=== PATIENT | female | born 1935 ===

== ENCOUNTER 2020-02-17 17:15 | Outpatient (REF) | payer MEDICARE, OTHER, SELFPAY ==
--- NOTE | 2020-02-17 17:25 | MM_ITS ---
EXAMINATION: MM SCREENING DIGITAL BREAST TOMOSYNTHESIS, BILATERAL CLINICAL INFORMATION: Screening. Asymptomatic. The lifetime risk of breast cancer based on the Tyrer-Cuzick Model is under 1%. COMPARISON: Mammography: 09/21/2018, 09/08/2017, 02/21/2017, 08/21/2016 TECHNIQUE: Digital breast tomosynthesis is performed in both the craniocaudal and mediolateral oblique views along with computer-aided detection (CAD). Synthesized 2D images are generated from the tomosynthesis. Additional left MLO view is provided. FINDINGS: There are scattered areas of fibroglandular density (ACR BI-RADS breast composition Category b). Parenchymal pattern is similar to prior studies. There is no interval mass or developing density or architectural abnormality. No abnormal calcifications. The axilla and skin contours are unremarkable. IMPRESSION: No mammographic evidence of malignancy. ASSESSMENT: BI-RADS 1: Negative RECOMMENDATION: Routine annual mammography screening. This patient's information was entered into a reminder system with a target due date for their next mammogram.
== END 2020-02-17 17:16 | disposition home or self-care (01) ==
LOC: HO.MAMMO 17:15
PROVIDERS: PCP Internal Medicine; Visit Provider Internal Medicine Endocrinology, Diabetes & Metabolism
DX: Z12.31 Encounter for screening mammogram for malignant neoplasm of breast (principal)
CPT/HCPCS: 77063; 77067; 78014

== ENCOUNTER 2020-03-23 15:42 | Outpatient (REF) | payer MEDICARE, OTHER, SELFPAY | END 2020-03-23 15:43 | disposition home or self-care (01) | LOC: HO.LAB 15:42 | PROVIDERS: Visit Provider Internal Medicine | DX: Z20.828 Contact with and (suspected) exposure to other viral communicable diseases (principal) | CPT/HCPCS: C9803; U0003 ==

== ENCOUNTER → 2020-04-20 13:28 | Outpatient (BNVA) | payer MEDICARE, OTHER, SELFPAY | PROVIDERS: PCP Internal Medicine; Referring Provider Internal Medicine; Visit Provider Internal Medicine | DX: J30.9 Allergic rhinitis, unspecified (principal); R05 Cough; Z79.82 Long term (current) use of aspirin; Z79.899 Other long term (current) drug therapy | CPT/HCPCS: Q3014 ==

== ENCOUNTER 2020-06-22 11:17 | Outpatient (REF) | payer MEDICARE, OTHER, SELFPAY ==
[2020-06-22 12:50] LABS: Hematocrit 35.9 % (37-47); Hemoglobin 11.8 g/dl (12.0-16.0); Mean Corpuscular HGB Conc 32.9 g/dl (31.0-35.0); Mean Corpuscular Hemoglobin 29.1 pg (27.0-33.0); Mean Corpuscular Volume 88.4 fL (80-98); Mean Platelet Volume 11.3 fL (9.4-12.3); Platelet Count 223 X10*3/uL (160-400); Red Blood Count 4.06 X10*6/uL (4.20-5.50); Red Cell Distribution Width 11.9 % (11.0-16.0); White Blood Count 6.9 X10*3/uL (4.8-10.8)
[2020-06-22 12:57] LABS: Glucose Urine UA NEG (NEG); Leukocyte Esterase Urine 1+ (NEG); Nitrite Urine NEG (NEG); PH 6.5 (5.0-8.0); Urine Blood TRACE (NEG); Urine Ketones NEG (NEG); Urine Protein TRACE MG/DL (NEG-TRACE)
[2020-06-22 13:05] LABS: Color Urine DARK YELLOW
[2020-06-22 13:06] LABS: Appearance Urine HAZY
[2020-06-22 13:18] LABS: Alanine Aminotransferase 16 U/L (0-31); Albumin Level 4.1 g/dL (3.5-5.0); Alkaline Phosphatase 94 U/L (39-117); Anion Gap 12 (12-20); Aspartate Amino Transferase 19 U/L (5-31); Bilirubin Total 0.6 mg/dL (0.0-1.0); Blood Urea Nitrogen 22 mg/dL (9-16); Calcium 9.3 mg/dL (8.4-10.2); Carbon Dioxide 30 mmol/L (22-29); Chloride 94 mmol/L (96-108); Cholesterol 165 mg/dL; Estimated Glomerular Filt Rate 48; Glucose Fasting 96 mg/dL (60-99); HDL Cholesterol 40 mg/dL; LDL Cholesterol Calculated 106 mg/dl; Potassium 5.3 mmol/L (3.3-5.1); Sodium 131 mmol/L (135-145); Total Protein 7.3 g/dL (6.5-8.0); Triglycerides 95 mg/dL
[2020-06-22 13:35] LABS: Bacteria Urine 2+ /LPF; Squamous Epithelial Cell Urine 2+ /LPF
[2020-06-22 13:41] LABS: Thyroid Stimulating Hormone 1.33 uIU/mL (0.32-4.0); Vitamin D 25-OH Total 44.2 ng/mL (>30)
== END 2020-06-22 11:18 | disposition home or self-care (01) ==
LOC: HO.10HDL 11:17
PROVIDERS: Absent Provider Internal Medicine Endocrinology, Diabetes & Metabolism; Visit Provider Radiology Diagnostic Radiology
DX: I10 Essential (primary) hypertension (principal); E78.00 Pure hypercholesterolemia, unspecified; E03.9 Hypothyroidism, unspecified
CPT/HCPCS: 36415; 80053; 80061; 81001; 81003; 82306; 84443; 85027

== ENCOUNTER 2020-11-21 09:12 | Outpatient (REF) | payer MEDICARE, OTHER, SELFPAY ==
--- NOTE | ~2020-11-21 | XR_ITS ---
EXAMINATION: XR SHOULDER, LEFT CLINICAL INFORMATION: Pain. COMPARISON: None TECHNIQUE: AP, scapular Y, and axillary views of the left shoulder. FINDINGS: No acute fracture or dislocation. Small acromioclavicular and glenohumeral marginal osteophytes. No osseous erosion. Small calcification adjacent to the greater tuberosity measuring 0.5 cm and consistent distal supraspinatus calcific tendinitis. Small subacromial spurring. XR/XR shoulder LT min 2V IMPRESSION: 1. Mild acromioclavicular and glenohumeral osteoarthritis. 2. Small subacromial spurs. 3. Mild distal supraspinatus calcific tendinitis.
== END 2020-11-21 09:13 | disposition home or self-care (01) ==
LOC: HO.HOSX 09:12
PROVIDERS: Visit Provider Physician Assistant
DX: S49.92XA Unspecified injury of left shoulder and upper arm, initial encounter (principal)
CPT/HCPCS: 73030; 99202

== ENCOUNTER 2020-12-08 10:49 | Outpatient (REF) | payer MEDICARE, OTHER, SELFPAY ==
[2020-12-08 12:57] LABS: MANUAL DIFF FLAG NO
[2020-12-08 13:03] LABS: Basophils Absolute Auto 0.1 X10*3/uL (0.0-0.2); Eosinophils Absolute Auto 0.4 X10*3/uL (0.0-0.4); Eosinophils Percent Auto 5.3 % (0-4); Hematocrit 38.6 % (37-47); Hemoglobin 12.3 g/dl (12.0-16.0); Imm Gran Abs Auto 0.02 X10*3/uL (0.00-0.03); Imm Gran Pct Auto 0.2 % (0.0-0.4); Lymphocytes Absolute Auto 1.3 X10*3/uL (1.2-4.9); Lymphocytes Percent Auto 16.1 % (20-40); Mean Corpuscular HGB Conc 31.9 g/dl (31.0-35.0); Mean Corpuscular Hemoglobin 28.5 pg (27.0-33.0); Mean Corpuscular Volume 89.4 fL (80-98); Mean Platelet Volume 10.9 fL (9.4-12.3); Monocytes Absolute Auto 0.8 X10*3/uL (0.1-1.2); Monocytes Percent Auto 9.3 % (2-11); Neutrophils Absolute Auto 5.5 X10*3/uL (2.0-8.3); Neutrophils Percent Auto 68.1 % (45-73); Platelet Count 239 X10*3/uL (160-400); Red Blood Count 4.32 X10*6/uL (4.20-5.50); Red Cell Distribution Width 12.4 % (11.0-16.0); White Blood Count 8.1 X10*3/uL (4.8-10.8)
[2020-12-08 13:03] LABS: Glucose Urine UA NEG (NEG); Leukocyte Esterase Urine 1+ (NEG); Nitrite Urine NEG (NEG); Specific Gravity - Urine <= 1.005 (1.005-1.025); Urine Blood NEG (NEG); Urine Ketones NEG (NEG); Urine Protein TRACE MG/DL (NEG-TRACE)
[2020-12-08 13:08] LABS: Appearance Urine CLEAR; Color Urine YELLOW
[2020-12-08 13:20] LABS: Bacteria Urine 2+ /LPF; RBC Urine 0 /HPF (0); Squamous Epithelial Cell Urine 3+ /LPF; WBC Urine 0-2 /HPF (0-4)
[2020-12-08 13:21] LABS: Amorphous Sediment Urine 2+ /LPF
[2020-12-08 13:34] LABS: Alanine Aminotransferase 21 U/L (0-31); Alkaline Phosphatase 86 U/L (39-117); Anion Gap 11 (12-20); Aspartate Amino Transferase 21 U/L (5-31); Bilirubin Total 0.6 mg/dL (0.0-1.0); Blood Urea Nitrogen 19 mg/dL (9-16); Calcium 9.8 mg/dL (8.4-10.2); Carbon Dioxide 31 mmol/L (22-29); Chloride 98 mmol/L (96-108); Cholesterol 157 mg/dL; Estimated Glomerular Filt Rate 44; Glucose Fasting 100 mg/dL (60-99); HDL Cholesterol 42 mg/dL; LDL Cholesterol Calculated 95 mg/dl; Potassium 4.9 mmol/L (3.3-5.1); Sodium 135 mmol/L (135-145); Total Protein 7.4 g/dL (6.5-8.0); Triglycerides 100 mg/dL
[2020-12-08 14:02] LABS: Thyroid Stimulating Hormone 1.18 uIU/mL (0.32-4.0); Vitamin D 25-OH Total 57.2 ng/mL (>30)
== END 2020-12-08 10:50 | disposition home or self-care (01) ==
LOC: HO.WFDLDS 10:49
PROVIDERS: Visit Provider Internal Medicine
DX: I10 Essential (primary) hypertension (principal); E78.00 Pure hypercholesterolemia, unspecified; E55.9 Vitamin D deficiency, unspecified
CPT/HCPCS: 36415; 80053; 80061; 81001; 81003; 82306; 84443; 85025

== ENCOUNTER 2020-12-13 11:50 | Outpatient (REF) | payer MEDICARE, OTHER, SELFPAY ==
[2020-12-13 14:18] LABS: Glucose Urine UA NEG (NEG); Leukocyte Esterase Urine 1+ (NEG); Nitrite Urine NEG (NEG); Urine Blood NEG (NEG); Urine Ketones NEG (NEG); Urine Protein TRACE MG/DL (NEG-TRACE)
[2020-12-13 14:20] LABS: Appearance Urine HAZY; Color Urine YELLOW
[2020-12-13 14:45] LABS: Bacteria Urine 1+ /LPF; RBC Urine 0-2 /HPF (0); Squamous Epithelial Cell Urine 1+ /LPF
== END 2020-12-13 11:51 | disposition home or self-care (01) ==
LOC: HO.10HDL 11:50
PROVIDERS: Visit Provider Nurse Practitioner Family
DX: R35.0 Frequency of micturition (principal)
CPT/HCPCS: 81001; 81003; 87086

== ENCOUNTER 2020-12-25 08:04 | Day surgery (SDC) | payer MEDICARE, OTHER, SELFPAY ==
[2020-12-19 11:36] VITALS: BMI 28.1
--- NOTE | 2020-12-25 07:01 | MHC.SHP ---
Pre-Procedural Eval Section A Date of Service: 12/25/20 Section B Chief Complaint: Right Eye Cataract Allergies: Allergies Allergy/AdvReac Type Severity Reaction Status Date / Time erythromycin base Allergy Intermediate Itching Verified 12/19/20 11:43 [ERYTHROMYCIN BASE] lisinopril Allergy Intermediate throat Verified 12/19/20 11:43 itchy simvastatin [From Zocor] AdvReac Severe Rash Verified 11/21/20 14:47 Plan I have reviewed the history and physical and performed a pertinent physical examination on my patient. No changes have occurred unless specified.
[2020-12-25 10:15] VITALS: BP 148/78; PULSE 74; RESP 20; TEMP 36.9; O2SAT 97
[2020-12-25] MEDS: Tetracaine HCl/PF 0.5% Oph Sol 4 ML DROPS 1 DROP EYE-RIGHT (10:25)
[2020-12-25] MEDS: Lactated Ringers 500 ML 50 ML IVCONT (10:25)
[2020-12-25] MEDS: Tropicamide 1 % Ophth Sol 3 ML BTL 1 DROP EYE-RIGHT ×3 (10:26→10:34)
[2020-12-25] MEDS: Phenylephrine HCL 2.5% Oph SoL 2 ML BOTTLE 1 DROP EYE-RIGHT ×3 (10:28→10:36)
--- NOTE | 2020-12-25 11:04 | HO.PNOPHT ---
Ophthalmology Procedure Procedure Date of Service: 12/25/20 Ophthalmology Viscoelastic: Kamala Saezt Dual Pack Pro Ophthalmology Lenses: TECCAPRI [id number] (21) Procedure Notes: PREOPERATIVE DIAGNOSIS: Decreased visual acuity right eye secondary to cataract POSTOPERATIVE DIAGNOSIS: Same PROCEDURE: Right cataract extraction with intraocular lens insertion SURGEON: Julio Alanis M.D. ANESTHESIA: Topical/MAC ESTIMATED BLOOD LOSS: None COMPLICATIONS: None After obtaining informed consent, the patient was brought to the operating room suite and placed in the supine position. After adequate sedation per anesthesia, topical drops of Tetracaine were given to the right eye. The eye was then prepped and draped in the usual sterile fashion. The operating room microscope was then positioned over the operative eye and a lid speculum placed. A paracentesis was created. Viscoelastic was then instilled into the anterior chamber. A three plane incision was then created temporally, utilizing a 2.85 mm keratome. Capsulotomy forceps were then utilized to create a circular tear capsulotomy. Hydrodissection and hydrodelineation were carried out until adequate mobilization of the nucleus occurred. Phacoemulsification was then utilized to remove the dense central nucleus followed by removal of the cortical material utilizing the automated aspiration irrigation unit. Viscoelastic was instilled into the posterior capsular bag followed by placement of a posterior chamber intraocular lens without difficulty. The residual Viscoelastic was then removed utilizing the automated IA machine. The wound was checked and found to be watertight. The patient tolerated the procedure well and the lid speculum was removed. Intracameral injection of Vigamox 0.1 mL followed by a subtenon injection of Kenalog-40 0.2 mL were administered. The patient will be seen in the a.m.
--- NOTE | 2020-12-25 11:21 | HO.ANESPROP2 ---
HPI - Anesthesia Eval Consult details Narrative: Right eye cataract PMFSH Active Problems Active Problems: All Active Problems (Updated 12/19/20 @ 11:41 by Nicole Wade) Shoulder pain (Acute) Soft tissue injury of left upper arm (Acute) Cough (Acute) Allergic rhinitis (Acute) Past Medical History Medical History Allergic rhinitis Cough COVID-19 vaccine series completed Heartburn HTN (hypertension) Hypothyroid PVD (peripheral vascular disease) Family History Family history of problems with anesthesia: No Surgical History Surgical History H/O colonoscopy Hx of excision of mass Hx of tonsillectomy History of Problems with Anesthesia: No Social History Social History 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 Meds Allergies Allergy/AdvReac Type Severity Reaction Status Date / Time erythromycin base Allergy Intermediate Itching Verified 12/25/20 10:01 [ERYTHROMYCIN BASE] lisinopril Allergy Intermediate throat Verified 12/25/20 10:01 itchy simvastatin [From Zocor] AdvReac Severe Rash Verified 12/25/20 10:01 Active Medications: Current Medications Generic Name Dose Route Start Last Admin Trade Name Freq PRN Reason Stop Dose Admin Lactated Ringer's 1,000 mls @ 50 mls/hr 12/22/20 12:15 Lr IVCONT .Q20H ANKIT Lactated Ringer's 500 mls @ 50 mls/hr 12/25/20 07:45 12/25/20 10:25 Lr IVCONT 50 mls/hr .Q10H ANKIT Administration Povidone Iodine 1 appl 12/25/20 07:01 Povidone Iodine 5 % Ophth Soln 30 Ml Bottle EYE-RIGHT PREOP PRN Pre-Op Surgical Implant Prophy Home Medications Medication Instructions Recorded Confirmed Last Taken Type alprazolam 0.25 mg tablet (Xanax) 0.25 mg PO BEDTIME PRN 04/20/20 12/19/20 Unknown History aspirin 81 mg tablet,delayed 81 mg PO DAILY 04/20/20 12/19/20 12/24/20 11:00 History release (Adult Aspirin Regimen) atorvastatin 40 mg tablet 40 mg PO BEDTIME 04/20/20 12/19/20 Unknown History cholecalciferol (vitamin D3) 50 50 mcg PO DAILY 04/20/20 12/19/20 Unknown History mcg (2,000 unit) capsule cilostazol 50 mg tablet 50 mg PO BID 04/20/20 12/19/20 12/25/20 07:30 History fluticasone propionate 50 1 spray INTRANASAL DAILY 04/20/20 12/19/20 Unknown History mcg/actuation nasal spray,suspension (Flonase Allergy Relief) levothyroxine 50 mcg tablet 50 mcg PO DAILY 04/20/20 12/19/20 12/25/20 07:30 History (Synthroid) loratadine 10 mg capsule 10 mg PO DAILY PRN 04/20/20 12/19/20 Unknown History metoprolol tartrate 50 mg tablet 50 mg PO BID 04/20/20 12/19/20 12/25/20 07:30 History valsartan 160 mg tablet 160 mg PO DAILY 04/20/20 12/19/20 Unknown History Exam Exam Date and Time: December 25, 2020 1121 Height,Weight and Vital Signs: Height 5 ft Weight 65.317 kg Last Vital Signs Temp 98.4 F 12/25/20 10:15 Pulse 74 12/25/20 10:15 Resp 20 12/25/20 10:15 BP 148/78 H 12/25/20 10:15 Pulse Ox 97 12/25/20 10:15 Airway Mallampati Class: II TM Dist: >3cm Neck ROM: Full Denture: Upper and Lower Heart: [id number] Lungs: cta b/l Assessment and Plan Assessment Anesthesia Assessment: Anesthesia Plan Discussed and Chart Reviewed Final Anesthetic Review Family History of Problems with Anesthesia: No History of Problems with Anesthesia: No NPO: Yes ASA Class: III Final Preanesthetic Review: No Changes in Pt Med Stat, Meds/Allgs Chart Reviewed, Consent Obtained/Reviewed and Anes Risks/Benef Reviewed Patient Risk: Intermediate Procedure Risk: Low Assessment/Block/Sedation in SS: Assess/Block/Sedation-SS Anesthetic Plan Anesthetic Plan: MAC: and Agree w/ Assess. and Plan Disposition: Standard PACU
[2020-12-25 11:35] VITALS: BP 161/71; PULSE 70; RESP 18; TEMP 36.3; O2SAT 97
[2020-12-25] MEDS: Acetaminophen 325 MG TABLET 650 MG PO (11:45)
== END 2020-12-25 11:46 | disposition home or self-care (01) ==
PROVIDERS: PCP Internal Medicine; Visit Provider Ophthalmology
PROC: (CPT 66985; principal; 2020-12-25 10:30)
DX: H25.11 Age-related nuclear cataract, right eye (principal); H52.4 Presbyopia; I65.23 Occlusion and stenosis of bilateral carotid arteries; I10 Essential (primary) hypertension; E03.9 Hypothyroidism, unspecified; I73.9 Peripheral vascular disease, unspecified; J41.0 Simple chronic bronchitis; Z79.51 Long term (current) use of inhaled steroids; Z79.899 Other long term (current) drug therapy
CPT/HCPCS: 66984; J2250; J3300; V2632

== ENCOUNTER 2021-01-08 09:03 | Day surgery (SDC) | payer MEDICARE, OTHER, SELFPAY ==
[2020-12-19 11:44] VITALS: BMI 28.1
--- NOTE | 2021-01-01 14:49 | MHC.SHP ---
Pre-Procedural Eval Section A Date of Service: 01/01/21 The patient is an INPATIENT: No The History & Physical has been completed within 30 days and I have reviewed it.: Yes Section B Chief Complaint: Cataract left eye Allergies: Allergies Allergy/AdvReac Type Severity Reaction Status Date / Time erythromycin base Allergy Intermediate Itching Verified 12/25/20 10:01 [ERYTHROMYCIN BASE] lisinopril Allergy Intermediate throat Verified 12/25/20 10:01 itchy simvastatin [From Zocor] AdvReac Severe Rash Verified 12/25/20 10:01 Plan Diagnosis/Plan: Unchanged I have reviewed the history and physical and performed a pertinent physical examination on my patient. No changes have occurred unless specified.
--- NOTE | 2021-01-04 14:41 | HO.ANESPROP2 ---
Documented by User: Mary Rodas NP 01/04/21 14:42 HPI - Anesthesia Eval Consult details Narrative: Left Cataract Extraction IOL Insertion PCP cleared (recent stress and echo wnl) Right eye 12/25/20: Midaz 2 PMFSH Active Problems Active Problems: All Active Problems (Updated 12/19/20 @ 11:41 by Nicole Wade RN) Shoulder pain (Acute) Soft tissue injury of left upper arm (Acute) Cough (Acute) Allergic rhinitis (Acute) Past Medical History Medical History Allergic rhinitis Cough COVID-19 vaccine series completed Heartburn HTN (hypertension) Hypothyroid PVD (peripheral vascular disease) Family History Family history of problems with anesthesia: No Surgical History Surgical History H/O colonoscopy Hx of excision of mass Hx of tonsillectomy History of Problems with Anesthesia: No Social History Social History 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 Meds Allergies Allergy/AdvReac Type Severity Reaction Status Date / Time erythromycin base Allergy Intermediate Itching Verified 12/25/20 10:01 [ERYTHROMYCIN BASE] lisinopril Allergy Intermediate throat Verified 12/25/20 10:01 itchy simvastatin [From Zocor] AdvReac Severe Rash Verified 12/25/20 10:01 Home Medications Medication Instructions Recorded Confirmed Last Taken Type alprazolam 0.25 mg tablet (Xanax) 0.25 mg PO BEDTIME PRN 04/20/20 12/19/20 Unknown History aspirin 81 mg tablet,delayed 81 mg PO DAILY 04/20/20 12/19/20 12/24/20 11:00 History release (Adult Aspirin Regimen) atorvastatin 40 mg tablet 40 mg PO BEDTIME 04/20/20 12/19/20 Unknown History cholecalciferol (vitamin D3) 50 50 mcg PO DAILY 04/20/20 12/19/20 Unknown History mcg (2,000 unit) capsule cilostazol 50 mg tablet 50 mg PO BID 04/20/20 12/19/20 12/25/20 07:30 History fluticasone propionate 50 1 spray INTRANASAL DAILY 04/20/20 12/19/20 Unknown History mcg/actuation nasal spray,suspension (Flonase Allergy Relief) levothyroxine 50 mcg tablet 50 mcg PO DAILY 04/20/20 12/19/20 01/08/21 History (Synthroid) loratadine 10 mg capsule 10 mg PO DAILY PRN 04/20/20 12/19/20 Unknown History metoprolol tartrate 50 mg tablet 50 mg PO BID 04/20/20 12/19/20 01/08/21 History valsartan 160 mg tablet 160 mg PO DAILY 04/20/20 12/19/20 Unknown History Exam Exam Date and Time: January 04, 2021 1441 Height,Weight and Vital Signs: Height 5 ft Weight 65.317 kg Assessment and Plan Assessment Anesthesia Assessment: Chart Reviewed Final Anesthetic Review Family History of Problems with Anesthesia: No History of Problems with Anesthesia: No Documented by User: Caro King MD 01/08/21 10:35 [facility] Past Medical History Medical History Allergic rhinitis Cough COVID-19 vaccine series completed Heartburn HTN (hypertension) Hypothyroid PVD (peripheral vascular disease) Surgical History Surgical History H/O colonoscopy Hx of excision of mass Hx of tonsillectomy Social History Social History 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 Meds Allergies Allergy/AdvReac Type Severity Reaction Status Date / Time erythromycin base Allergy Intermediate Itching Verified 12/25/20 10:01 [ERYTHROMYCIN BASE] lisinopril Allergy Intermediate throat Verified 12/25/20 10:01 itchy simvastatin [From Zocor] AdvReac Severe Rash Verified 12/25/20 10:01 Home Medications Medication Instructions Recorded Confirmed Last Taken Type alprazolam 0.25 mg tablet (Xanax) 0.25 mg PO BEDTIME PRN 04/20/20 12/19/20 Unknown History aspirin 81 mg tablet,delayed 81 mg PO DAILY 04/20/20 12/19/20 12/24/20 11:00 History release (Adult Aspirin Regimen) atorvastatin 40 mg tablet 40 mg PO BEDTIME 04/20/20 12/19/20 Unknown History cholecalciferol (vitamin D3) 50 50 mcg PO DAILY 04/20/20 12/19/20 Unknown History mcg (2,000 unit) capsule cilostazol 50 mg tablet 50 mg PO BID 04/20/20 12/19/20 12/25/20 07:30 History fluticasone propionate 50 1 spray INTRANASAL DAILY 04/20/20 12/19/20 Unknown History mcg/actuation nasal spray,suspension (Flonase Allergy Relief) levothyroxine 50 mcg tablet 50 mcg PO DAILY 04/20/20 12/19/20 01/08/21 History (Synthroid) loratadine 10 mg capsule 10 mg PO DAILY PRN 04/20/20 12/19/20 Unknown History metoprolol tartrate 50 mg tablet 50 mg PO BID 04/20/20 12/19/20 01/08/21 History valsartan 160 mg tablet 160 mg PO DAILY 04/20/20 12/19/20 Unknown History Exam Airway Mallampati Class: II (Edentulous) TM Dist: >3cm Neck ROM: Full Denture: Upper and Lower Loose/Missing/Broken Teeth: Yes, Upper and Lower Heart: RRR Lungs: CTA Assessment and Plan Assessment Anesthesia Assessment: Anesthesia Plan Discussed Final Anesthetic Review NPO: Yes ASA Class: II Final Preanesthetic Review: Meds/Allgs Chart Reviewed, Consent Obtained/Reviewed and Anes Risks/Benef Reviewed Patient Risk: Low Procedure Risk: Low Anesthetic Plan Anesthetic Plan: MAC: Disposition: Standard PACU
[2021-01-08] MEDS: Lactated Ringers 500 ML 50 ML IV (10:15)
[2021-01-08] MEDS: Tropicamide 1 % Ophth Sol 3 ML BTL 1 DROP EYE-LEFT ×3 (10:15→10:18)
[2021-01-08] MEDS: Phenylephrine HCL 2.5% Oph SoL 2 ML BOTTLE 1 DROP EYE-LEFT ×3 (10:16→10:19)
--- NOTE | 2021-01-08 10:50 | PC.NURSE ---
PT STS SHES NO DNR
--- NOTE | 2021-01-08 11:28 | HO.PNOPHT ---
Ophthalmology Procedure Procedure Date of Service: 01/08/21 Ophthalmology Viscoelastic: Healon Duet Dual Pack Pro Ophthalmology Lenses: TECNIS [id number] (21.5) Procedure Notes: PREOPERATIVE DIAGNOSIS: Decreased visual acuity left eye secondary to cataract POSTOPERATIVE DIAGNOSIS: Same PROCEDURE: Left cataract extraction with intraocular lens insertion SURGEON: Julio Alanis M.D. ANESTHESIA: Topical/MAC ESTIMATED BLOOD LOSS: None COMPLICATIONS: None After obtaining informed consent, the patient was brought to the operation room suite and placed in the supine position. After adequate sedation per anesthesia, topical drops of Tetracaine were given to the left eye. The eye was then prepped and draped in the usual sterile fashion. The operating room microscope was then positioned over the operative eye and a lid speculum placed. A paracentesis was created. Viscoelastic was then instilled into the anterior chamber. A three plane incision was then created temporally, utilizing a 2.85 mm keratome. Capsulotomy forceps were then utilized to create a circular tear capsulotomy. Hydrodissection and hydrodelineation were carried out until adequate mobilization of the nucleus occurred. Phacoemulsification was then utilized to remove the dense central nucleus followed by removal of the cortical material utilizing the automated aspiration irrigation unit. Viscoat elastic was instilled into the posterior capsular bag followed by placement of a posterior chamber intraocular lens without difficulty. The residual Viscoat elastic was then removed utilizing the automated IA machine. The wound was check and found to be watertight. The patient tolerated the procedure well and the lid speculum was removed. Intracameral injection of Vigamox 0.1 mL followed by a subtenon injection of Kenalog-40 0.2 mL were administered. The patient will be seen in the a.m.
[2021-01-08 11:49] VITALS: BP 125/54; PULSE 69; RESP 18; TEMP 36.2; O2SAT 100
== END 2021-01-08 12:06 | disposition home or self-care (01) ==
PROVIDERS: PCP Internal Medicine; Visit Provider Ophthalmology
PROC: (CPT 66985; principal; 2021-01-08 11:50)
DX: H25.12 Age-related nuclear cataract, left eye (principal); H52.4 Presbyopia; I10 Essential (primary) hypertension; J43.9 Emphysema, unspecified; E03.9 Hypothyroidism, unspecified; Z79.51 Long term (current) use of inhaled steroids; Z79.899 Other long term (current) drug therapy; Z88.8 Allergy status to other drugs, medicaments and biological substances; Z66 Do not resuscitate
CPT/HCPCS: 66984; J2250; J3010; J3300; V2632

== ENCOUNTER 2021-03-02 13:07 | Outpatient (REF) | payer MEDICARE, OTHER, SELFPAY ==
--- NOTE | ~2021-03-02 | MM_ITS ---
EXAMINATION: MM SCREENING DIGITAL BREAST TOMOSYNTHESIS, BILATERAL CLINICAL INFORMATION: Screening. Asymptomatic. COMPARISON: Mammography: 02/17/2020, 09/21/2018, 09/08/2017 TECHNIQUE: Digital breast tomosynthesis is performed in both the craniocaudal and mediolateral oblique views along with computer-aided detection (CAD). Synthesized 2D images are generated from the tomosynthesis. FINDINGS: There are scattered areas of fibroglandular density (ACR BI-RADS breast composition Category b). There are no significant masses, abnormal calcifications, or other abnormalities. Parenchymal pattern is similar to prior exams. The axilla and skin contours are unremarkable. MM/MM tomosynthesis screening BI IMPRESSION: No mammographic evidence of malignancy. ASSESSMENT: BI-RADS 1: Negative RECOMMENDATION: Routine annual mammography screening. This patient's information was entered into a reminder system with a target due date for their next mammogram.
== END 2021-03-02 13:08 | disposition home or self-care (01) ==
LOC: HO.MAMMO 13:07
PROVIDERS: Visit Provider Internal Medicine
DX: Z12.31 Encounter for screening mammogram for malignant neoplasm of breast (principal)
CPT/HCPCS: 77063; 77067

== ENCOUNTER 2021-04-23 13:09 | Outpatient (REF) | payer MEDICARE, OTHER, SELFPAY ==
--- NOTE | ~2021-04-23 | XR_ITS ---
EXAMINATION: XR CHEST CLINICAL INFORMATION: Cough. COMPARISON: None TECHNIQUE: 2 views of the chest were obtained. FINDINGS: The cardiomediastinal silhouette is normal. No abnormal tracheal deviation. Prominence of soft tissue in the bilateral paratracheal region is related to enlarged thyroid gland seen on the ultrasound of 12/20/2016. The lungs are mildly hyperinflated. Suggestion of bilateral bronchial thickening and likely patchy hazy opacities in the right lower lung zone medially. No evidence of pleural effusions, pulmonary edema or pneumothorax. Osteopenia. Mild degenerative changes in the spine. XR/XR chest 2V IMPRESSION: Bronchial thickening with suspected airspace opacities in the right lower lung zone medially. There are no pertinent prior studies for comparison. Recommend clinical followup as appropriate and followup chest x-rays in 6-8 weeks.
== END 2021-04-23 13:10 | disposition home or self-care (01) ==
LOC: HO.XRAY 13:09
PROVIDERS: PCP Internal Medicine; Visit Provider Internal Medicine
DX: R05.9 Cough, unspecified (principal); J30.9 Allergic rhinitis, unspecified
CPT/HCPCS: 71046; 99212

== ENCOUNTER 2021-07-16 17:05 | Outpatient (REF) | payer MEDICARE, OTHER, SELFPAY ==
--- NOTE | ~2021-07-16 | XR_ITS ---
EXAMINATION: XR CHEST CLINICAL INFORMATION: Pneumonia COMPARISON: Previous chest x-ray most recent April 2021 TECHNIQUE: 2 views of the chest were obtained. FINDINGS: The cardiac silhouette does not appear enlarged. There is increased soft tissue in the superior mediastinum. This is similar to previous chest x-ray. This may be related to the patient's known enlarged thyroid gland. There are increased central hilar lung markings. Differential would include bronchitis/airways disease, pulmonary venous redistribution and atypical interstitial pneumonia. Correlation is recommended. There are symmetric nodular densities at both lung bases probably representing nipple shadows. This is similar to April 2021 exam. The lungs are otherwise clear. There is no pleural effusion or pneumothorax. There are degenerative changes of the spine. 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 Increased central hilar lung markings similar to previous exam. Differential would include bronchitis/airways disease, pulmonary venous redistribution/mild pulmonary edema and atypical interstitial pneumonia.
== END 2021-07-16 17:06 | disposition home or self-care (01) ==
LOC: HO.XRAY 17:05
PROVIDERS: PCP Internal Medicine; Visit Provider Internal Medicine
DX: J18.8 Other pneumonia, unspecified organism (principal)
CPT/HCPCS: 71046

== ENCOUNTER 2021-08-06 12:00 | Outpatient (REF) | payer MEDICARE, OTHER, SELFPAY ==
[2021-08-06 13:18] LABS: Anion Gap 11 (12-20); Blood Urea Nitrogen 16 mg/dL (9-16); Calcium 9.4 mg/dL (8.4-10.2); Carbon Dioxide 29 mmol/L (22-29); Chloride 96 mmol/L (96-108); Estimated Glomerular Filt Rate 55; Glucose Random 134 mg/dL (60-115); Potassium 4.3 mmol/L (3.3-5.1); Sodium 132 mmol/L (135-145)
== END 2021-08-06 12:01 | disposition home or self-care (01) ==
LOC: HO.10HDL 12:00
PROVIDERS: Visit Provider Internal Medicine
DX: R79.89 Other specified abnormal findings of blood chemistry (principal)
CPT/HCPCS: 36415; 80048

== ENCOUNTER 2021-09-18 16:19 | Outpatient (REF) | payer MEDICARE, OTHER, SELFPAY ==
--- NOTE | ~2021-09-18 | XR_ITS ---
EXAMINATION: XR CHEST CLINICAL INFORMATION: Pneumonia. COMPARISON: 07/16/2021 and 04/23/2021. TECHNIQUE: 2 views of the chest were obtained. FINDINGS: There is some increased interstitial markings again seen without significant change. There is prominence of the superior mediastinal soft tissues which are stable. There appear to be prominent pericardial fat pads. No definite acute parenchymal disease is appreciated. No pneumothorax or pleural effusion. Heart normal size. No evidence of pulmonary edema. There is osteopenia of visualized bones. XR/XR chest 2V IMPRESSION: No acute disease. Stable superior mediastinal soft tissue prominence.
== END 2021-09-18 16:20 | disposition home or self-care (01) ==
LOC: HO.XRAY 16:19
PROVIDERS: PCP Internal Medicine; Visit Provider Internal Medicine
DX: J18.8 Other pneumonia, unspecified organism (principal)
CPT/HCPCS: 71046

== ENCOUNTER 2021-09-21 11:20 | Outpatient (REF) | payer MEDICARE, OTHER, SELFPAY ==
[2021-09-21 11:49] LABS: MANUAL DIFF FLAG NO
[2021-09-21 12:06] LABS: Basophils Absolute Auto 0.1 X10*3/uL (0.0-0.2); Basophils Percent Auto 1.1 % (0-2); Eosinophils Absolute Auto 0.3 X10*3/uL (0.0-0.4); Hematocrit 35.1 % (37.0-47.0); Hemoglobin 11.5 g/dl (12.0-16.0); Imm Gran Abs Auto 0.02 X10*3/uL (0.00-0.03); Imm Gran Pct Auto 0.3 % (0.0-0.4); Lymphocytes Absolute Auto 1.4 X10*3/uL (1.2-4.9); Lymphocytes Percent Auto 18.9 % (20-40); Mean Corpuscular HGB Conc 32.8 g/dl (31.0-35.0); Mean Corpuscular Hemoglobin 28.9 pg (27.0-33.0); Mean Corpuscular Volume 88.2 fL (80.0-98.0); Mean Platelet Volume 10.7 fL (9.4-12.3); Monocytes Absolute Auto 0.8 X10*3/uL (0.1-1.2); Monocytes Percent Auto 10.6 % (2-11); Neutrophils Absolute Auto 4.7 x10*3/uL (2.0-8.3); Neutrophils Percent Auto 65.1 % (45-73); Platelet Count 226 X10*3/uL (160-400); Red Blood Count 3.98 X10*6/uL (4.20-5.50); Red Cell Distribution Width 13.2 % (11.0-16.0); White Blood Count 7.3 X10*3/uL (4.8-10.8)
[2021-09-21 12:23] LABS: Osmolality, Serum 287 mosm/kg (281-305)
[2021-09-21 12:31] LABS: Alanine Aminotransferase 19 U/L (0-31); Albumin Level 3.9 g/dL (3.5-5.0); Alkaline Phosphatase 81 U/L (39-117); Anion Gap 12 (12-20); Aspartate Amino Transferase 20 U/L (5-31); Bilirubin Total 0.6 mg/dL (0.0-1.0); Blood Urea Nitrogen 27 mg/dL (9-16); Calcium 9.7 mg/dL (8.4-10.2); Carbon Dioxide 29 mmol/L (22-29); Chloride 97 mmol/L (96-108); Estimated Glomerular Filt Rate 46; Glucose Random 97 mg/dL (60-115); Potassium 4.8 mmol/L (3.3-5.1); Sodium 133 mmol/L (135-145); Total Protein 7.1 g/dL (6.5-8.0)
== END 2021-09-21 11:21 | disposition home or self-care (01) ==
LOC: HO.LAB 11:20
PROVIDERS: PCP Internal Medicine; Visit Provider Internal Medicine
DX: I10 Essential (primary) hypertension (principal); F32.A Depression, unspecified
CPT/HCPCS: 36415; 80053; 83930; 85025

== ENCOUNTER → 2021-10-29 13:11 | Outpatient (BNVA) | payer MEDICARE, OTHER, SELFPAY | PROVIDERS: PCP Internal Medicine; Visit Provider Internal Medicine | DX: J30.9 Allergic rhinitis, unspecified (principal); U09.9 Post COVID-19 condition, unspecified | CPT/HCPCS: 99212 ==

== ENCOUNTER 2022-01-21 13:44 | Outpatient (REF) | payer MEDICARE, OTHER, SELFPAY ==
[2022-01-21 15:00] LABS: Anion Gap 15 (12-20); Blood Urea Nitrogen 26 mg/dL (9-16); Calcium 9.2 mg/dL (8.4-10.2); Carbon Dioxide 27 mmol/L (22-29); Chloride 96 mmol/L (96-108); Estimated Glomerular Filt Rate 48; Glucose Random 92 mg/dL (60-115); Potassium 5.3 mmol/L (3.3-5.1); Sodium 133 mmol/L (135-145)
[2022-01-21 15:04] LABS: Osmolality, Serum 289 mosm/kg (281-305)
== END 2022-01-21 13:45 | disposition home or self-care (01) ==
LOC: HO.LAB 13:44
PROVIDERS: PCP Internal Medicine; Visit Provider Internal Medicine
DX: I10 Essential (primary) hypertension (principal); E87.1 Hypo-osmolality and hyponatremia
CPT/HCPCS: 36415; 80048; 83930

== ENCOUNTER → 2022-01-31 13:20 | Outpatient (BNVA) | payer MEDICARE, OTHER, SELFPAY | PROVIDERS: PCP Internal Medicine; Visit Provider Internal Medicine | DX: J98.4 Other disorders of lung (principal); U09.9 Post COVID-19 condition, unspecified; J30.9 Allergic rhinitis, unspecified | CPT/HCPCS: 94010; 99212 ==

== ENCOUNTER 2022-03-06 12:52 | Outpatient (REF) | payer MEDICARE, OTHER, SELFPAY ==
--- NOTE | ~2022-03-06 | MM_ITS ---
EXAMINATION: MM SCREENING DIGITAL BREAST TOMOSYNTHESIS, BILATERAL CLINICAL INFORMATION: Screening. Asymptomatic. COMPARISON: Mammography: 03/02/2021, 02/17/2020, 09/21/2018 TECHNIQUE: Digital breast tomosynthesis is performed in both the craniocaudal and mediolateral oblique views along with computer-aided detection (CAD). Synthesized 2D images are generated from the tomosynthesis. FINDINGS: There are scattered areas of fibroglandular density (ACR BI-RADS breast composition Category b). There are no significant masses, abnormal calcifications, or other abnormalities. Parenchymal pattern is similar to prior studies. There is no developing density or architectural abnormality. The axilla and skin contours are unremarkable. No significant changes. MM/MM tomosynthesis screening BI IMPRESSION: No mammographic evidence of malignancy. ASSESSMENT: BI-RADS 1: Negative RECOMMENDATION: Routine annual mammography screening. This patient's information was entered into a reminder system with a target due date for their next mammogram.
== END 2022-03-06 12:53 | disposition home or self-care (01) ==
LOC: HO.MAMMO 12:52
PROVIDERS: PCP Internal Medicine; Visit Provider Internal Medicine
DX: Z12.31 Encounter for screening mammogram for malignant neoplasm of breast (principal)
CPT/HCPCS: 77063; 77067

== ENCOUNTER → 2022-06-11 13:02 | Outpatient (BNVA) | payer MEDICARE, OTHER, SELFPAY | PROVIDERS: PCP Internal Medicine; Visit Provider Internal Medicine | DX: J98.4 Other disorders of lung (principal); J30.9 Allergic rhinitis, unspecified; R05.9 Cough, unspecified | CPT/HCPCS: 99212 ==

== ENCOUNTER 2022-09-16 10:49 | Outpatient (REF) | payer MEDICARE, OTHER, SELFPAY ==
[2022-09-16 11:08] LABS: MANUAL DIFF FLAG NO
[2022-09-16 12:44] LABS: Basophils Absolute Auto 0.1 X10*3/uL (0.0-0.2); Basophils Percent Auto 0.8 % (0-2); Eosinophils Absolute Auto 0.3 X10*3/uL (0.0-0.4); Eosinophils Percent Auto 3.3 % (0-4); Hematocrit 35.7 % (37.0-47.0); Hemoglobin 11.5 g/dl (12.0-16.0); Imm Gran Abs Auto 0.03 X10*3/uL (0.00-0.03); Imm Gran Pct Auto 0.4 % (0.0-0.4); Lymphocytes Absolute Auto 1.2 X10*3/uL (1.2-4.9); Lymphocytes Percent Auto 15.2 % (20-40); Mean Corpuscular HGB Conc 32.2 g/dl (31.0-35.0); Mean Corpuscular Volume 89.9 fL (80.0-98.0); Mean Platelet Volume 11.4 fL (9.4-12.3); Monocytes Percent Auto 12.3 % (2-11); Neutrophils Absolute Auto 5.4 x10*3/uL (2.0-8.3); Platelet Count 231 X10*3/uL (160-400); Red Blood Count 3.97 X10*6/uL (4.20-5.50); White Blood Count 7.9 X10*3/uL (4.8-10.8)
[2022-09-16 13:20] LABS: Alanine Aminotransferase 14 U/L (0-31); Albumin Level 3.5 g/dL (3.5-5.0); Alkaline Phosphatase 85 U/L (39-117); Anion Gap 12 (12-20); Aspartate Amino Transferase 14 U/L (5-31); Bilirubin Total 0.8 mg/dL (0.0-1.0); Blood Urea Nitrogen 19 mg/dL (9-16); Calcium 9.1 mg/dL (8.4-10.2); Carbon Dioxide 30 mmol/L (22-29); Chloride 99 mmol/L (96-108); Cholesterol 143 mg/dL; Estimated Glomerular Filt Rate 35; Glucose Random 109 mg/dL (60-115); HDL Cholesterol 31 mg/dL; LDL Cholesterol Calculated 91 mg/dl; Potassium 5.4 mmol/L (3.3-5.1); Sodium 136 mmol/L (135-145); Total Protein 6.6 g/dL (6.5-8.0); Triglycerides 107 mg/dL
[2022-09-16 13:35] LABS: Estimated Average Glucose 123 mg/dL; Hemoglobin A1c % 5.9 %
[2022-09-16 13:36] LABS: Thyroid Stimulating Hormone 1.99 uIU/mL (0.32-4.0)
== END 2022-09-16 10:50 | disposition home or self-care (01) ==
LOC: HO.LAB 10:49
PROVIDERS: PCP Internal Medicine; Visit Provider Internal Medicine
DX: E78.00 Pure hypercholesterolemia, unspecified (principal); I10 Essential (primary) hypertension; E03.9 Hypothyroidism, unspecified; R73.01 Impaired fasting glucose; R35.1 Nocturia
CPT/HCPCS: 36415; 80053; 80061; 83036; 84443; 85025; 87086

== ENCOUNTER 2022-10-02 16:35 | Outpatient (REF) | payer MEDICARE, OTHER, SELFPAY ==
[2022-10-02 18:03] LABS: Anion Gap 15 (12-20); Blood Urea Nitrogen 23 mg/dL (9-16); Calcium 9.3 mg/dL (8.4-10.2); Carbon Dioxide 28 mmol/L (22-29); Chloride 90 mmol/L (96-108); Estimated Glomerular Filt Rate 49; Glucose Random 89 mg/dL (60-115); Sodium 128 mmol/L (135-145)
== END 2022-10-02 16:36 | disposition home or self-care (01) ==
LOC: HO.LAB 16:35
PROVIDERS: PCP Internal Medicine; Visit Provider Internal Medicine
DX: I10 Essential (primary) hypertension (principal)
CPT/HCPCS: 36415; 80048

== ENCOUNTER 2022-11-13 15:31 | Outpatient (REF) | payer MEDICARE, OTHER, SELFPAY | END 2022-11-13 15:32 | disposition home or self-care (01) | LOC: HO.LAB 15:31 | PROVIDERS: PCP Internal Medicine; Visit Provider Internal Medicine | DX: E87.1 Hypo-osmolality and hyponatremia (principal) | CPT/HCPCS: 36415; 80048; 83930 ==

== ENCOUNTER 2023-03-17 12:13 | Outpatient (REF) | payer MEDICARE, OTHER, SELFPAY | END 2023-03-17 12:14 | disposition home or self-care (01) | LOC: HO.MAMMO 12:13 | PROVIDERS: PCP Internal Medicine; Visit Provider Internal Medicine | DX: Z12.31 Encounter for screening mammogram for malignant neoplasm of breast (principal) | CPT/HCPCS: 77063; 77067 ==

== ENCOUNTER → 2023-03-17 12:15 | Outpatient (BNV) | payer MEDICARE, OTHER, SELFPAY | PROVIDERS: PCP Internal Medicine; Visit Provider Radiology Diagnostic Radiology | DX: Z12.31 Encounter for screening mammogram for malignant neoplasm of breast (principal) | CPT/HCPCS: 77063; 77067 ==

== ENCOUNTER 2023-07-02 14:30 | Outpatient (AMB) | payer MEDICARE, OTHER, SELFPAY ==
--- NOTE | 2023-07-02 15:06 | MHC.OFFVIS ---
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 Required: No Allergies erythromycin base [ERYTHROMYCIN BASE] Allergy (Intermediate, Verified 07/02/23 15:59) Itching lisinopril Allergy (Intermediate, Verified 07/02/23 15:59) throat itchy simvastatin [From Zocor] Adverse Reaction (Severe, Verified 07/02/23 15:59) Rash Medication List - Last Reconciled 07/02/23 by Aziza Keller MD ascorbic acid (vitamin C) mg PO aspirin (Adult Aspirin Regimen) 81 mg PO DAILY atorvastatin 40 mg PO BEDTIME cholecalciferol (vitamin D3) 50 mcg PO DAILY cilostazol 50 mg PO BID escitalopram oxalate 5 mg PO DAILY levothyroxine (Synthroid) 50 mcg PO DAILY loratadine 10 mg PO DAILY PRN metoprolol tartrate 50 mg PO BID valsartan 160 mg PO DAILY Do you need a note to return to daycare/school/sports/work: No HPI rld HPI Details This 88 years old very pleasant female, of [place] background, comes after 1 year for follow-up. She has mild allergic rhinitis, and has been prescribed fluticasone-50 2 spray each nostril daily, Also uses loratadine p.r.n.. She has mild intermittent cough especially at nighttime, and does not sleep good at night. So she claims that she remains somewhat sleepy during the morning hours. Her sleep is affected by her dying about 2 years ago. She is still somewhat depressed . She denies any shortness of breath on exertion, and physically remains active. [facility] Medical History Restrictive lung disease COVID-19 vaccine series completed Heartburn Hypothyroid PVD (peripheral vascular disease) HTN (hypertension) Cough Allergic rhinitis Surgical History Hx of tonsillectomy Hx of excision of mass H/O colonoscopy Social History Are you a primary healthcare risk control consultant to a significant other at home: Yes (-disabled ) Do you presently have visiting nurse or other home services: Yes (for ) Comment: Medicated with Tylenol 650 mg PO Patient Tobacco Use Status: Former Tobacco user Quit Date: age 72 Tobacco use type: Cigarette Current occupational status: 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 Review of Systems Const All systems reviewed & are unremarkable except as noted in HPI and below Eyes Reports no additional complaints ENT Reports nasal congestion and Reports nasal discharge (Almost daily) Card Reports no additional complaints Resp Reports as per HPI GI Reports no additional complaints Reports no additional complaints Musc Reports no additional complaints Skin/Breast Reports system reviewed and no additional complaints, except as documented Neuro Reports no additional complaints Psych Reports no additional complaints Physical Exam Vital Signs: Last Vital Signs Pulse 81 07/02/23 15:08 BP 140/70 H 07/02/23 15:08 Pulse Ox 90 L 07/02/23 15:08 Oxygen Delivery Method Room Air 07/02/23 15:08 BMI result Body Mass Index 28.0 Const General: healthy appearing, comfortable, no acute distress, alert and awake Orientation/consciousness: patient oriented x3 HEENT Head: Yes normal to inspection General nose exam: No nasal polyps present, No nasal discharge present and Other nasal findings present (Mild nasal congestion) Face and sinus: Yes sinuses nontender Mouth: oropharynx normal Throat: Yes posterior oropharynx normal Eyes General: appearance normal, both eyes and all related structures Neck Neck: Yes normal visual inspection, Yes no lymphadenopathy, Yes trachea midline and Yes no JVD Thyroid: Thyroid normal Chest Chest palpation & inspection: normal inspection of the chest, normal palpation of entire chest wall and no tenderness Resp Other: Percussion note resonant, breath sounds are slightly distant but equal. On both sides No wheezes are heard. There are no wheezes or crackles . Cardio Palpation: normal PMI Rate: regular rate Rhythm: regular rhythm Heart sounds: no gallops and no murmurs Peripheral pulses: Peripheral pulses 2+ throughout GI Palpation (GI): Soft to palpation, Tenderness to palpation present (GI), No hepatosplenomegaly present and Palpable mass present Auscultation: normal bowel sounds Back/Spine/Pelvis Thoracic/Lumbar Spine: thoracic and lumbar spine normal to inspection Skin General skin exam: no rashes or lesions noted Neuro General: patient oriented x3 and no focal motor deficits Cranial nerves: Yes CN's II-XII intact bilaterally Extrem General: Yes normal to inspection, Yes no clubbing, cyanosis or edema and Yes no calf tenderness Psych Appearance: grossly normal and well kempt Speech and movement: Normal speech and movement present Assessment & Plan Assessment & Plan (1) Allergic rhinitis: Comment: CHRONIC PERRENIAL, MILD AND WELL CONTROLLED . * has also seen ENT specialist Dr. Faustin . Code(s): J30.9 - Allergic rhinitis, unspecified Plan: TX:FLONASE NASL SPRAY DAILY , AND CLARITIN OR ALTERNATE MED CETRIZINE OR FEXOFENADINE ONCE A DAY PRN (2) Cough: Comment: IT IS SEC TO ALLERGIC RHINITIS/ POST NASAL DISCHARGE . TREATMENT UNDER ALL RHIN. IT IS MINIMAL AT THIS TIME . Code(s): R05 - Cough Plan: May also use Robitussin DM. 1 or 2 tsp at nighttime. (3) Restrictive lung disease: Comment: Spirometry showed moderately severe restrictive pattern, It is most likely secondary to her initial COVID pneumonia in June 2021. TX : continue doing deep breathing exercises 2 or 3 times a day . * DISCUSSED IN DETAIL, I ADVISED HER TO COME AND SEE ME ONLY ON A P.R.N. BASIS. I WAS DELIGHTED TO DISCUSS WITH HER HER CENTRAL AFRICAN BACKGROUND AND GROWING UP IN [facility] . Code(s): J98.4 - Other disorders of lung Plan: as above Coding Level of Care Code Est Pt Level 3 (04613) Diagnoses Allergic rhinitis J30.9 Cough R05 Restrictive lung disease J98.4
[2023-07-02 15:08] VITALS: BP 140/70; PULSE 81; O2SAT 90; BMI 28.0
== END 2023-07-02 15:50 | disposition home or self-care (01) ==
PROVIDERS: PCP Internal Medicine; Visit Provider Internal Medicine
DX: J30.9 Allergic rhinitis, unspecified (principal); R05.9 Cough, unspecified; J98.4 Other disorders of lung
CPT/HCPCS: 99213

== ENCOUNTER → 2023-07-02 14:30 | Outpatient (BNVA) | payer MEDICARE, OTHER, SELFPAY | PROVIDERS: PCP Internal Medicine; Visit Provider Internal Medicine | DX: J30.9 Allergic rhinitis, unspecified (principal); J98.4 Other disorders of lung; R05.9 Cough, unspecified | CPT/HCPCS: 99212 ==

== ENCOUNTER 2023-07-18 12:09 | Outpatient (REF) | payer MEDICARE, OTHER, SELFPAY ==
[2023-07-18 14:26] LABS: Free T4 (Free Thyroxine) 0.85 ng/dL (0.71-1.85); Thyroid Stimulating Hormone 1.77 uIU/mL (0.32-4.0)
== END 2023-07-18 12:10 | disposition home or self-care (01) ==
LOC: HO.LAB 12:09
PROVIDERS: PCP Internal Medicine; Visit Provider Internal Medicine Endocrinology, Diabetes & Metabolism
DX: E03.9 Hypothyroidism, unspecified (principal)
CPT/HCPCS: 36415; 84439; 84443

== ENCOUNTER 2023-09-15 10:48 | Outpatient (REF) | payer MEDICARE, OTHER, SELFPAY ==
[2023-09-15 11:13] LABS: MANUAL DIFF FLAG NO
[2023-09-15 11:40] LABS: Basophils Absolute Auto 0.1 X10*3/uL (0.0-0.2); Basophils Percent Auto 1.1 % (0-2); Eosinophils Absolute Auto 0.8 X10*3/uL (0.0-0.4); Eosinophils Percent Auto 10.3 % (0-4); Hemoglobin 12.6 g/dl (12.0-16.0); Imm Gran Abs Auto 0.03 X10*3/uL (0.00-0.03); Imm Gran Pct Auto 0.4 % (0.0-0.4); Lymphocytes Absolute Auto 1.2 X10*3/uL (1.2-4.9); Lymphocytes Percent Auto 15.7 % (20-40); Mean Corpuscular HGB Conc 33.2 g/dl (31.0-35.0); Mean Corpuscular Hemoglobin 30.1 pg (27.0-33.0); Mean Corpuscular Volume 90.9 fL (80.0-98.0); Mean Platelet Volume 11.1 fL (9.4-12.3); Monocytes Absolute Auto 0.6 X10*3/uL (0.1-1.2); Monocytes Percent Auto 8.4 % (2-11); Neutrophils Absolute Auto 4.7 x10*3/uL (2.0-8.3); Neutrophils Percent Auto 64.1 % (45-73); Platelet Count 197 X10*3/uL (160-400); Red Blood Count 4.18 X10*6/uL (4.20-5.50); Red Cell Distribution Width 12.8 % (11.0-16.0); White Blood Count 7.4 X10*3/uL (4.8-10.8)
[2023-09-15 11:43] LABS: Estimated Average Glucose 120 mg/dL; Hemoglobin A1c % 5.8 % (<6.0)
[2023-09-15 11:44] LABS: Appearance Urine Clear; Color Urine Yellow; Glucose Urine UA Negative (Negative); Leukocyte Esterase Urine Small (1+) (Negative); Nitrite Urine Negative (Negative); UMIC TRIGGER UACC YES; Urine Blood Negative (Negative); Urine Ketones Negative (Negative); Urine Protein 30 (1+) mg/dL (Neg-Trace)
[2023-09-15 11:55] LABS: Bacteria Urine None Seen (None Seen); Hyaline Casts Urine 0-2 /LPF (0-2); RBC Urine 0-2 /HPF (0-2); Squamous Epithelial Cell Urine 0-2 /HPF (0-2); UACC Culture Trigger YES; WBC Urine 0-5 /HPF (0-5)
[2023-09-15 12:13] LABS: Alanine Aminotransferase 16 U/L (0-31); Albumin Level 3.8 g/dL (3.5-5.0); Alkaline Phosphatase 83 U/L (39-117); Anion Gap 14 (12-20); Aspartate Amino Transferase 20 U/L (5-31); Bilirubin Total 0.7 mg/dL (0.0-1.0); Blood Urea Nitrogen 27 mg/dL (9-16); Calcium 10.3 mg/dL (8.4-10.2); Carbon Dioxide 28 mmol/L (22-29); Chloride 101 mmol/L (96-108); Cholesterol 155 mg/dL (<200); Estimated Glomerular Filt Rate 40; Glucose Random 93 mg/dL (60-115); HDL Cholesterol 40 mg/dL (>40); LDL Cholesterol Calculated 93 mg/dL (<100); Potassium 4.7 mmol/L (3.3-5.1); Sodium 138 mmol/L (135-145); Total Protein 7.6 g/dL (6.5-8.0); Triglycerides 110 mg/dL (<150)
[2023-09-15 12:30] LABS: TSH reflex Free T4 1.88 uIU/mL (0.32-4.0); Vitamin D 25-OH Total 48.4 ng/mL (>30)
== END 2023-09-15 10:49 | disposition home or self-care (01) ==
LOC: HO.LAB 10:48
PROVIDERS: Otolaryngology; Visit Provider Internal Medicine
DX: I10 Essential (primary) hypertension (principal); J30.89 Other allergic rhinitis; K21.9 Gastro-esophageal reflux disease without esophagitis; E78.00 Pure hypercholesterolemia, unspecified; R73.01 Impaired fasting glucose; R35.1 Nocturia; E55.9 Vitamin D deficiency, unspecified
CPT/HCPCS: 36415; 80053; 80061; 81001; 82306; 82785; 83036; 84443; 85025; 86003; 87086

== ENCOUNTER 2023-10-16 12:38 | Inpatient (IN) | payer MEDICARE, OTHER, SELFPAY ==
[2023-10-16] VITALS (9 sets, daily range): BP systolic 129–216; BP diastolic 60–124; PULSE 82–107; RESP 14–28; TEMP 36.4–36.6; O2SAT 92–100; BMI 27.3
--- NOTE | 2023-10-16 | ECG_ITS ---
Test Reason : CHEST PAIN Blood Pressure : / mmHG Vent. Rate : 103 BPM Atrial Rate : 103 BPM P-R Int : 156 ms QRS Dur : 076 ms QT Int : 348 ms P-R-T Axes : 082 047 116 degrees QTc Int : 455 ms Sinus tachycardia with Premature supraventricular complexes Possible Left atrial enlargement ST & T wave abnormality, consider lateral ischemia Abnormal ECG When compared with ECG of 16-OCT-2023 13:35, ST now depressed in Anterolateral leads Nonspecific T wave abnormality, worse in Inferior leads T wave inversion now evident in Lateral leads Referred By: Turner Arredondo Electronically Signed By:VIRGIL DAS MD
--- NOTE | ~2023-10-16 | CT_ITS ---
EXAMINATION: CT HEAD WITHOUT CONTRAST CLINICAL INFORMATION: Dizziness COMPARISON: None available. TECHNIQUE: Contiguous axial imaging was performed from the skull base to vertex without intravenous administration of contrast. This CT examination was performed using dose optimization techniques as appropriate, variously including the following: *Automated exposure control *Adjustment of mA and/or kV according to patient size (this includes techniques or standardized protocols for targeted exams where dose is matched to indication/reason for exam; i.e. extremities or head) *Use of iterative reconstruction technique DLP: 542 mGy-cm FINDINGS: There is no evidence of an extra-axial collection. There is no evidence of intra or extra-axial hemorrhage. The ventricles and extra-axial CSF spaces are prominent. There is nonspecific periventricular white matter disease. No mass, mass effect or infarct. No skull fracture. Sinuses, mastoid air cells and middle ears are clear. CT/CT head/brain wo IV con IMPRESSION: No acute findings. Mild generalized atrophy and nonspecific periventricular white matter disease.
--- NOTE | ~2023-10-16 | CT_ITS ---
EXAMINATION: CT ANGIOGRAM OF THE CHEST WITH AND WITHOUT CONTRAST (CT PULMONARY ANGIOGRAM FOR PE) CLINICAL INFORMATION: Reason for Exam shortness of breath, low sats COMPARISON: Chest radiograph 10/16/2023 TECHNIQUE: Prior to contrast administration, noncontrast localization images were obtained. Subsequently, multidetector volumetric imaging was performed from the thoracic inlet to below the diaphragms following the administration of 80 mL Omnipaque 350 intravenous contrast. No contrast reaction reported Sagittal, coronal, and MIP oblique sagittal reformatted images were obtained on the CT workstation, uploaded to PACS, and reviewed. This CT examination was performed using dose optimization techniques as appropriate, variously including the following: *Automated exposure control *Adjustment of mA and/or kV according to patient size (this includes techniques or standardized protocols for targeted exams where dose is matched to indication/reason for exam; i.e. extremities or head) *Use of iterative reconstruction technique Total exam dose-length product 210 mGy-cm FINDINGS: Overall evaluation is slightly limited due to motion. QUALITY OF STUDY/CONTRAST BOLUS: Satisfactory. PULMONARY ARTERIES: No central or segmental pulmonary emboli. THORACIC AORTA: No aneurysm. Scattered atherosclerotic calcifications of the thoracic and included upper abdominal aorta. LUNG: Central airways are patent. Advanced emphysematous changes most pronounced in the upper lobes. No focal consolidation. No suspicious pulmonary nodule, although evaluation particularly of the lung bases is limited due to motion artifact. PLEURA: No pleural effusion or pneumothorax. Mild pleural thickening along the superior right upper and lower lobes. MEDIASTINUM: Heart is mildly enlarged. No pericardial effusion. No hilar or mediastinal lymphadenopathy. The thyroid gland is significantly enlarged extending to the superior mediastinum. Aortic valvular calcifications. Dense mitral annular calcifications CORONARY ARTERY CALCIFICATION: Moderate to severe coronary artery calcifications. CHEST WALL/AXILLA: No axillary or internal mammary lymphadenopathy. OSSEOUS STRUCTURES: No acute or suspicious osseous abnormality. Multilevel degenerative changes of the visualized spine. UPPER ABDOMEN: There is reflux of contrast into the intrahepatic IVC and hepatic veins suggesting right heart strain. Simple cyst in the left renal interpolar region for which no dedicated follow-up imaging is required. CT/CT angio chest PE protocol IMPRESSION: Overall evaluation is slightly limited due to motion. 1. No central or segmental pulmonary emboli. 2. Mild cardiomegaly. Reflux of contrast into the intrahepatic IVC and hepatic veins suggesting elevated right heart pressures. 3. No focal consolidation or suspicious pulmonary nodule, although evaluation of lung parenchyma is limited due to motion. Advanced emphysematous changes, most pronounced in the upper lobes. 4. Aortic and mitral valvular calcifications. Moderate to severe coronary artery calcifications. 5. Significant enlarged thyroid. Correlation with dedicated ultrasound can be considered if not already performed. VTE: negative
--- NOTE | ~2023-10-16 | XR_ITS ---
EXAMINATION: XR CHEST CLINICAL INFORMATION: Lightheaded. COMPARISON: Chest x-ray September 18, 2021 TECHNIQUE: 2 views of the chest were obtained. FINDINGS: Chronic mild increased interstitial lung markings prior chest x-ray. No acute intracranial abnormality. No focal consolidation. No pulmonary vascular congestion. There is no pleural effusion. The heart size is normal. The cardiac and mediastinal contours are normal. There are calcifications of the thoracic aorta. There are multilevel degenerative changes of dorsal spine. XR/XR chest 2V IMPRESSION: No acute abnormality of chest.
--- NOTE | ~2023-10-16 | US_ITS ---
EXAMINATION: ULTRASOUND RENAL WITH DOPPLER CLINICAL INFORMATION: Hypertension. COMPARISON: None. TECHNIQUE: Real-time grayscale, color Doppler, and duplex Doppler evaluation of the kidneys and renal vasculature was performed. FINDINGS: RENAL MEASUREMENTS: Right: 11.3 x 4.1 x 4.2 cm (Sag x AP x TV) Left: 10.2 x 4.9 x 3.7 cm (Sag x AP x TV) Renal parenchyma is normal in thickness and echogenicity. There are several simple cysts bilaterally for which no imaging follow-up is recommended. A 3 mm nonobstructing calculus is seen in the upper right kidney. There is a possible mass in the upper pole of the right kidney which measures 3.2 cm by ultrasound. A nonsimple lesion is seen in retrospect in this location in the upper pole right kidney on recent CT, however measures smaller in size at 1.5 cm. There is no adrenal mass to explain the finding. DOPPLER INTERROGATION: AORTA: Not visualized. RIGHT MAIN RENAL ARTERY: Proximal: 74 cm/sec Mid: 42 cm/sec Distal: 45 cm/sec LEFT MAIN RENAL ARTERY: Proximal: Not visualized Mid: Not visualized Distal: 79 cm/sec RENAL-AORTIC RATIO (RAR): Right: Cannot be calculated as the aorta was not visualized. Left: Cannot be calculated as the aorta was not visualized. SEGMENTAL RESISTIVE INDICES: Right: 0.70-0.84 Left: 0.75-0.85 RENAL VEINS: Right: Patent with normal waveform. Left: Patent with normal waveform. US/US renal doppler IMPRESSION: Significantly limited ultrasound due to bowel gas and patient's inability to hold her breath. Indeterminant lesion in the upper pole right kidney is likely a complex cyst but not fully characterized by ultrasound. This can be further evaluated with CT of the abdomen without and with contrast if clinically indicated. Limited Doppler exam without convincing evidence of hemodynamically significant stenosis. The left renal artery is poorly visualized due to bowel gas.
--- NOTE | 2023-10-16 12:52 | ED_ITS ---
HPI - Dizziness General Chief Complaint: Dizziness Stated Complaint: dizzy nausea Time Seen by Provider: 10/16/23 13:59 History of Present Illness HPI Narrative: The patient is an 88-year-old female who lives alone on her own in his normally extremely functional. She does not normally require a walker or a cane and she still drives and does her own shopping. She has not been hospitalized for any reason for decades. The patient says that she was in her usual state of health yesterday and was feeling reasonably well last night when she went to bed although she notes that she has had what she thought was acid reflux intermittently over the last month or 2. This morning she woke up at around 10:00 feeling dizzy and nauseated and generally unwell and very clammy. At around 11:00 she contacted her daughter who came to see her. The daughter thought that the patient looked unwell and drove her to the hospital. I saw this patient initially at about 14:50. At that point the patient was also complaining of chest discomfort that she was describing his acid reflux discomfort. She denied feeling short of breath. She had had some retching at home but no actual vomiting. No diarrhea. The patient says that she has a history of mild emphysema which she attributes to a 50 year history of smoking. She also says that she has a history of a goiter. She denies any urinary symptoms. Related Data Home Medications ?Medication ?Instructions ?Recorded ?Confirmed aspirin 81 mg tablet,delayed 81 mg PO DAILY 04/20/20 07/02/23 release (Adult Aspirin Regimen) atorvastatin 40 mg tablet 40 mg PO BEDTIME 04/20/20 07/02/23 cholecalciferol (vitamin D3) 50 50 mcg PO DAILY 04/20/20 07/02/23 mcg (2,000 unit) capsule cilostazol 50 mg tablet 50 mg PO BID 04/20/20 07/02/23 levothyroxine 50 mcg tablet 50 mcg PO DAILY 04/20/20 07/02/23 (Synthroid) loratadine 10 mg capsule 10 mg PO DAILY PRN allergy symptoms 04/20/20 07/02/23 metoprolol tartrate 50 mg tablet 50 mg PO BID 04/20/20 07/02/23 valsartan 160 mg tablet 160 mg PO DAILY 04/20/20 07/02/23 ascorbic acid (vitamin C) 500 mg mg PO 06/11/22 07/02/23 capsule escitalopram oxalate 5 mg tablet 5 mg PO DAILY 07/02/23 07/02/23 Allergies Allergy/AdvReac Type Severity Reaction Status Date / Time erythromycin base Allergy Intermediate Itching Verified 10/16/23 12:56 [ERYTHROMYCIN BASE] lisinopril Allergy Intermediate throat Verified 10/16/23 12:56 itchy simvastatin [From Zocor] AdvReac Severe Rash Verified 10/16/23 12:56 Review of Systems 2 Review of Systems: Yes all other systems are reviewed and are negative [facility] Past Medical History Medical History Restrictive lung disease COVID-19 vaccine series completed Heartburn Hypothyroid PVD (peripheral vascular disease) HTN (hypertension) Cough Allergic rhinitis Surgical History Hx of tonsillectomy Hx of excision of mass H/O colonoscopy Social History Social History Are you a primary health care coordinator to a significant other at home: Yes (- disabled ) Do you presently have visiting nurse or other home services: Yes (for ) Alcohol intake: never Comment: Medicated with Tylenol 650 mg PO Patient Tobacco Use Status: Former Tobacco user Tobacco use type: Cigarette Smoked in Last 30 Days: No Use of substances other than those prescribed or required for medical reasons: No Advance Directives: Yes Advance Directives Information Provided: Yes Advance Directives on File: No Do you have a plan to hurt others: No Plan Current occupational status: 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 She looked younger than her age. She looked mildly uncomfortable and anxious. HEENT: Other: Face is symmetrical, mucous membranes moist. Eyes: Other: Pupils are round equal, conjunctivae are clear, extraocular movements intact Neck: Other: No obvious JVD but the neck was somewhat thick. Resp: Other: No obvious increased work of breathing. No obvious adventitious breath sounds. Breath sounds were quiet but there was no definite wheezing or crackles. Cardio: Rate: tachycardic Rhythm: regular rhythm Heart sounds: S1 normal heart sound present and S2 normal heart sound present GI: Other: The abdomen was soft without significant tenderness. : General: Yes no CVA tenderness Back/Spine/Pelvis: Back: no CVA tenderness Skin: Other: Skin was pale and dry Neuro: Other: The patient is awake and alert. She has a somewhat anxious affect. Cranial nerves are grossly intact. She moves her extremities symmetrically. No focal neurological deficit. Extrem: Other: No calf swelling or tenderness, no peripheral edema, no asymmetry. Course Course Course Narrative: This is a Rapid Medical Examination (RME) performed by Joseline Patel PA-C in triage. Full HPI, ROS, assessment and treatment plan per primary provider in the Main ED. 88 yo female hx of COPD, hypothyroid, PVD, HTN, allergic rhinitis here for eval of light headedness and nausea. reports feeling fine when she went to bed last night. woke up this morning feeling light headed and nauseaous. admits to one episode of vomiting. no hx of vertigo. admits to feeling off . BP 185/100 at home this morning. has not taken her BP meds d/t nausea. she is concerned she is having an OR. denies fever, chills, chest pain, SOB. Plan: labs, ekg, cxr, tsh Medications Administered Discontinued Medications Generic Name Dose Route Start Last Admin Trade Name Anabella PRN Reason Stop Dose Admin Aspirin 162 mg 10/16/23 15:17 10/16/23 15:26 Aspirin Enteric Coated 81 Mg Tablet. PO 10/16/23 15:18 162 mg ONCE ONE Administration Iohexol 70 ml 10/16/23 17:00 10/16/23 17:01 Iohexol 350 Mg/Ml 100 Ml Infus..Btl IV 10/16/23 17:01 70 ml ONCE ONE Administration Nitroglycerin 1 inch 10/16/23 15:17 10/16/23 15:28 Nitroglycerin 2 % Oint 1 Gm Packet TRANSDERMA 10/16/23 15:18 1 inch ONCE ONE Administration Nitroglycerin 1 inch 10/16/23 15:51 10/16/23 16:00 Nitroglycerin 2 % Oint 1 Gm Packet TRANSDERMA 10/16/23 15:52 1 inch ONCE ONE Administration Medical Decision Making Medical Decision Making [facility] Narrative: The patient is a very functional 88-year-old who lives alone and still drives who says that she woke up at around 10:00 this morning feeling unwell with fairly nonspecific symptoms of lightheadedness and nausea. About an hour later she still felt unwell and I asked her daughter to drive her to the hospital. On arrival here she was not complaining of any pain. She had an unremarkable initial EKG. I saw the patient approximately 2 hours after she presented. At that time she was complaining of chest discomfort that she described as her acid reflux. At that point she was also tachycardic, hypertensive and with oxygen saturations of about 86% on room air. She looks somewhat unwell. We obtained a 2nd EKG at 15:13 that showed sinus tachycardia at 103 beats per minute and which showed what I thought might be new T-wave depression in V5 and V6 and also in AVF. The patient was placed on oxygen and given nitro paste and 2 baby aspirin and she had resolution of her discomfort. Her chest x-ray did not show any signs of congestive heart failure or explanation for her low oxygen saturations. Third EKG was done at 15:55. At that point she was feeling better but she was still mildly tachycardic and still had ST segment depressions in his similar pattern as her 2nd EKG. A repeat troponin was done at that time that was unremarkable. Given her tachycardia and her low oxygen saturations without chest x-ray findings to account for her low oxygen saturations I obtained a CT pulmonary angiogram. This was ultimately read as showing no pulmonary emboli. It does show significant emphysema. On examined the patient does not have any wheezes. The patient continued to feel comfortable without any recurrence of the chest discomfort that she had had when I 1st saw her. We ultimately obtained another EKG at 17:48. She was feeling considerably better that time. This EKG showed normal sinus rhythm at 92 beats per minute with improvement in the ST segment depressions that has been apparent on the 2nd and 3rd EKGs. A 3rd troponin was obtained at 18:00. This was 11.9 which was higher than her 1st 2 troponins which has been 4.6 and 4.8. Overall the patient's presentation is somewhat puzzling. She looked unwell for a period of time and had EKG changes but she has not had any corresponding significant rise in her troponin levels. Her abdomen seems benign. I do not have a good alternative explanation for her symptoms except for the possibility of a subtle acute coronary syndrome or possibly a hypertensive urgency. She will be admitted to the hospital for further observation and evaluation. Lab Data 10/16/23 13:46 10/16/23 13:46 Labs: Lab Results 10/16/23 10/16/23 10/16/23 Range/Units 13:46 15:32 15:40 WBC 9.2 (4.8-10.8) X10*3/uL RBC 4.23 (4.20-5.50) X10*6/uL Hgb 13.0 (12.0-16.0) g/dl Hct 38.3 (37.0-47.0) % MCV 90.5 (80.0-98.0) fL MCH 30.7 (27.0-33.0) pg MCHC 33.9 (31.0-35.0) g/dl RDW 12.2 (11.0-16.0) % Plt Count 177 (160-400) X10*3/uL MPV 10.8 (9.4-12.3) fL Immature Gran % (Auto) 0.4 (0.0-0.4) % Neut % (Auto) 81.5 H (45-73) % Lymph % (Auto) 8.4 L (20-40) % [place] % (Auto) 6.4 (2-11) % Eos % (Auto) 2.5 (0-4) % Baso % (Auto) 0.8 (0-2) % Lymph # (Auto) 0.8 L (1.2-4.9) X10*3/uL [place] # (Auto) 0.6 (0.1-1.2) X10*3/uL Eos # (Auto) 0.2 (0.0-0.4) X10*3/uL Baso # (Auto) 0.1 (0.0-0.2) X10*3/uL Abs Immat Gran (auto) 0.04 H (0.00-0.03) X10*3/uL Absolute Neuts (auto) 7.5 (2.0-8.3) x10*3/uL Absolute Nucleated RBC 0.000 (0.0-0.012) X10*3/uL Nucleated RBC % (auto) 0.0 (0.0-0.2) /100WBC aPTT Heparin Protocol (53-77.9) SEC Sodium 135 (135-145) mmol/L Potassium 5.0 (3.3-5.1) mmol/L Chloride 99 (96-108) mmol/L Carbon Dioxide 30 H (22-29) mmol/L Anion Gap 11 L (12-20) BUN 24 H (9-16) mg/dL Creatinine 1.13 (0.5-1.4) mg/dL Estim Creat Clear Calc 28.6 Estimated GFR 45 Random Glucose 112 (60-115) mg/dL Calcium 10.1 (8.4-10.2) mg/dL Magnesium 1.8 (1.6-2.6) mg/dL Total Bilirubin 0.6 (0.0-1.0) mg/dL AST 21 (5-31) U/L ALT 15 (0-31) U/L Alkaline Phosphatase 88 (39-117) U/L Troponin I High Sens 4.6 4.8 (<3.5-17.0) ng/L C-Reactive Protein 0.53 H (< or = 0.50) mg/dL B-Natriuretic Peptide 274 H (<100) pg/mL Total Protein 7.8 (6.5-8.0) g/dL Albumin 3.9 (3.5-5.0) g/dL Lipase 41 (8-78) U/L TSH 0.86 (0.32-4.0) uIU/mL Urine Color Yellow Urine Appearance Clear Urine pH 8.0 (5.0-9.0) Ur Specific [place] 1.010 (1.005-1.025) Urine Protein 300 (3+) H (Neg-Trace) mg/dL Urine Glucose (UA) Negative (Negative) mg/dL Urine Ketones Negative (Negative) mg/dL Urine Blood Negative (Negative) Urine Nitrite Negative (Negative) Ur Leukocyte Esterase Negative (Negative) Urine RBC 0-2 (0-2) /HPF Urine WBC 0-5 (0-5) /HPF Ur Squamous Epith Cells 0-2 (0-2) /HPF Urine Bacteria None Seen (None Seen) Hyaline Casts 3-5 (0-2) /LPF 10/16/23 10/16/23 Range/Units 18:04 19:34 WBC (4.8-10.8) X10*3/uL RBC (4.20-5.50) X10*6/uL Hgb (12.0-16.0) g/dl Hct (37.0-47.0) % MCV (80.0-98.0) fL MCH (27.0-33.0) pg MCHC (31.0-35.0) g/dl RDW (11.0-16.0) % Plt Count (160-400) X10*3/uL MPV (9.4-12.3) fL Immature Gran % (Auto) (0.0-0.4) % Neut % (Auto) (45-73) % Lymph % (Auto) (20-40) % [place] % (Auto) (2-11) % Eos % (Auto) (0-4) % Baso % (Auto) (0-2) % Lymph # (Auto) (1.2-4.9) X10*3/uL [place] # (Auto) (0.1-1.2) X10*3/uL Eos # (Auto) (0.0-0.4) X10*3/uL Baso # (Auto) (0.0-0.2) X10*3/uL Abs Immat Gran (auto) (0.00-0.03) X10*3/uL Absolute Neuts (auto) (2.0-8.3) x10*3/uL Absolute Nucleated RBC (0.0-0.012) X10*3/uL Nucleated RBC % (auto) (0.0-0.2) /100WBC aPTT Heparin Protocol 30.7 L (53-77.9) SEC Sodium (135-145) mmol/L Potassium (3.3-5.1) mmol/L Chloride (96-108) mmol/L Carbon Dioxide (22-29) mmol/L Anion Gap (12-20) BUN (9-16) mg/dL Creatinine (0.5-1.4) mg/dL Estim Creat Clear Calc Estimated GFR Random Glucose (60-115) mg/dL Calcium (8.4-10.2) mg/dL Magnesium (1.6-2.6) mg/dL Total Bilirubin (0.0-1.0) mg/dL AST (5-31) U/L ALT (0-31) U/L Alkaline Phosphatase (39-117) U/L Troponin I High Sens 11.9 D (<3.5-17.0) ng/L C-Reactive Protein (< or = 0.50) mg/dL B-Natriuretic Peptide (<100) pg/mL Total Protein (6.5-8.0) g/dL Albumin (3.5-5.0) g/dL Lipase (8-78) U/L TSH (0.32-4.0) uIU/mL Urine Color Urine Appearance Urine pH (5.0-9.0) Ur Specific [place] (1.005-1.025) Urine Protein (Neg-Trace) mg/dL Urine Glucose (UA) (Negative) mg/dL Urine Ketones (Negative) mg/dL Urine Blood (Negative) Urine Nitrite (Negative) Ur Leukocyte Esterase (Negative) Urine RBC (0-2) /HPF Urine WBC (0-5) /HPF Ur Squamous Epith Cells (0-2) /HPF Urine Bacteria (None Seen) Hyaline Casts (0-2) /LPF Independent Interpretation I performed an independent interpretation of an: EKG Interpretation: The patient has an initial EKG showed sinus rhythm with premature atrial complexes at 82 beats per minute. There were no definite acute ischemic changes. It was a fairly unremarkable EKG. Critical Care Time Critical Care Time Critical Care Time: Yes Total Critical Care Time: 50 Attestation: The patient was critically ill with a high probability of imminent or life- threatening deterioration. ?I spent greater than 30 minutes of discontinuous time evaluating the patient, delivering critical care at the bedside, discussing evaluating data with consultants. ?Critical care time does not include time spent performing separately billable procedures or teaching. ?Time spent performing critical care with 50 minutes. Discharge Plan Discharge Clinical Impression: Chest pain, Hypertension, Hypoxia, Abnormal electrocardiogram Patient Disposition: Admitted As Inpatient
--- NOTE | 2023-10-16 12:57 | ECG_ITS ---
Test Reason : DIZZINESS Blood Pressure : / mmHG Vent. Rate : 082 BPM Atrial Rate : 082 BPM P-R Int : 164 ms QRS Dur : 082 ms QT Int : 378 ms P-R-T Axes : 086 048 018 degrees QTc Int : 441 ms Sinus rhythm with Premature atrial complexes Otherwise normal ECG When compared with ECG of 23-SEP-2005 07:29, Premature atrial complexes are now Present Referred By: Rasheeda Patel Electronically Signed By:VIRGIL DAS MD
[2023-10-16 13:50] LABS: MANUAL DIFF FLAG NO
[2023-10-16 13:51] LABS: Basophils Absolute Auto 0.1 X10*3/uL (0.0-0.2); Basophils Percent Auto 0.8 % (0-2); Eosinophils Absolute Auto 0.2 X10*3/uL (0.0-0.4); Eosinophils Percent Auto 2.5 % (0-4); Hematocrit 38.3 % (37.0-47.0); Imm Gran Abs Auto 0.04 X10*3/uL (0.00-0.03); Imm Gran Pct Auto 0.4 % (0.0-0.4); Lymphocytes Absolute Auto 0.8 X10*3/uL (1.2-4.9); Lymphocytes Percent Auto 8.4 % (20-40); Mean Corpuscular HGB Conc 33.9 g/dl (31.0-35.0); Mean Corpuscular Hemoglobin 30.7 pg (27.0-33.0); Mean Corpuscular Volume 90.5 fL (80.0-98.0); Mean Platelet Volume 10.8 fL (9.4-12.3); Monocytes Absolute Auto 0.6 X10*3/uL (0.1-1.2); Monocytes Percent Auto 6.4 % (2-11); Neutrophils Absolute Auto 7.5 x10*3/uL (2.0-8.3); Neutrophils Percent Auto 81.5 % (45-73); Platelet Count 177 X10*3/uL (160-400); Red Blood Count 4.23 X10*6/uL (4.20-5.50); Red Cell Distribution Width 12.2 % (11.0-16.0); White Blood Count 9.2 X10*3/uL (4.8-10.8)
[2023-10-16 14:18] LABS: Alanine Aminotransferase 15 U/L (0-31); Albumin Level 3.9 g/dL (3.5-5.0); Alkaline Phosphatase 88 U/L (39-117); Anion Gap 11 (12-20); Aspartate Amino Transferase 21 U/L (5-31); Bilirubin Total 0.6 mg/dL (0.0-1.0); Blood Urea Nitrogen 24 mg/dL (9-16); Calcium 10.1 mg/dL (8.4-10.2); Carbon Dioxide 30 mmol/L (22-29); Chloride 99 mmol/L (96-108); Creatinine Clr Calc Pharmacy 28.6; Estimated Glomerular Filt Rate 45; Glucose Random 112 mg/dL (60-115); Lipase 41 U/L (8-78); Magnesium 1.8 mg/dL (1.6-2.6); Sodium 135 mmol/L (135-145); Total Protein 7.8 g/dL (6.5-8.0)
[2023-10-16 14:19] LABS: Troponin-I High Sensitivity 4.6 ng/L (<3.5-17.0)
[2023-10-16 14:33] LABS: TSH reflex Free T4 0.86 uIU/mL (0.32-4.0)
[2023-10-16] MEDS: Aspirin Enteric Coated 81 MG TABLET.DR 162 MG PO (15:26)
[2023-10-16] MEDS: Nitroglycerin 2 % Oint 1 GM Packet 1 INCH TRANSDERMA ×2 (15:28→16:00)
[2023-10-16 15:43] LABS: C Reactive Protein 0.53 mg/dL (< or = 0.50)
[2023-10-16 15:46] LABS: Appearance Urine Clear; Color Urine Yellow; Glucose Urine UA Negative (Negative); Leukocyte Esterase Urine Negative (Negative); Nitrite Urine Negative (Negative); UMIC TRIGGER UACC YES; Urine Blood Negative (Negative); Urine Ketones Negative (Negative); Urine Protein 300 (3+) mg/dL (Neg-Trace)
--- NOTE | 2023-10-16 15:50 | ECG_ITS ---
Test Reason : CHEST PAIN Blood Pressure : / mmHG Vent. Rate : 102 BPM Atrial Rate : 102 BPM P-R Int : 166 ms QRS Dur : 076 ms QT Int : 352 ms P-R-T Axes : 071 045 068 degrees QTc Int : 458 ms Sinus tachycardia with Premature atrial complexes Possible Left atrial enlargement Nonspecific ST and T wave abnormality Abnormal ECG When compared with ECG of 16-OCT-2023 15:09, No significant change was found Referred By: Turner Arredondo Electronically Signed By:VIRGIL DAS MD
[2023-10-16 15:54] LABS: Bacteria Urine None Seen (None Seen); RBC Urine 0-2 /HPF (0-2); Squamous Epithelial Cell Urine 0-2 /HPF (0-2); WBC Urine 0-5 /HPF (0-5)
[2023-10-16 15:57] LABS: B Type Natriuretic Peptide 274 pg/mL (<100)
[2023-10-16 16:06] LABS: Troponin-I High Sensitivity 4.8 ng/L (<3.5-17.0)
[2023-10-16] MEDS: iohexoL 350 MG/ML 100 ML INFUS..BTL 70 ML IV (17:01)
--- NOTE | 2023-10-16 17:32 | ECG_ITS ---
Test Reason : REPEAT Blood Pressure : / mmHG Vent. Rate : 092 BPM Atrial Rate : 092 BPM P-R Int : 170 ms QRS Dur : 080 ms QT Int : 370 ms P-R-T Axes : 065 015 027 degrees QTc Int : 457 ms Normal sinus rhythm Possible Left atrial enlargement Borderline ECG When compared with ECG of 16-OCT-2023 15:50, Premature atrial complexes are no longer Present ST no longer depressed in Anterior leads Referred By: Turner Arredondo Electronically Signed By:VIRGIL DAS MD
[2023-10-16 18:28] LABS: Troponin-I High Sensitivity 11.9 ng/L (<3.5-17.0)
[2023-10-16 19:49] LABS: PTT Heparin Drip 30.7 SEC (53-77.9)
--- NOTE | 2023-10-16 20:42 | P.HPHOSP_ITS ---
History of Present Illness Date of Service: 10/16/23 <RENZO Fournier - Last Filed: 10/16/23 22:37> Attending physician on admission: Herminio Hutchinson <RENZO Fournier - Last Filed: 10/16/23 22:37> Chief Complaint: Lightheadedness, dizziness, HTN <RENZO Fournier - Last Filed: 10/16/23 22:37> Pt is an 88-year-old female with a PMH significant for?HTN, HLD, emphysema, carotid stenosis, and goiter who presents to the ED with?dizziness, lightheadedness, and substernal discomfort since this morning. Patient reports she has been experiencing intermittent ?heartburn for the past month only partly alleviated by Prilosec. Denies chest pain or chest pressure. Patient last night went to bed in her normal state of health, then when she awoke this morning felt lightheaded, dizzy, and clammy with acid relfux at baseline. Called her daughter who came over and took blood pressure which was elevated at 185/100. Patient reports not normally keeping track of her BP at home. Also experienced some nausea and 1 episode of vomiting. Daughter notes she had to help pt walk due to weakness. had a similar incident 1 month ago where she also vomited, which is atypical for her. Denies any significant cough or shortness of breath. No orthopnea. No increased lower leg edema. No fever, chills, abdominal pain. Reports that her sleep and mood have been affected after her 2 years prior. has had very poor sleep since, sleeping approximately 1 hour at a time before waking up. Also reports increasing depression and anxiety. Has seen a therapist who started her on escitalopram, the patient reports stopped taking approximately 6 weeks ago, shortly before symptoms started. Patient also reports of 50 year pack history of smoking, quit 15 years ago. In the ED pt was tachycardic to 107, tachypneic to 28, and hypertensive up to 216/124, satting as low as 86% on RA. Labs were significant for BNP mildly elevated at 274, otherwise grossly unremarkable and at baseline for patient. No leukocytosis. Stable H&H. No significant electrolyte abnormalities. Renal and hepatic function WNL. Serial troponins WNL at 4.6, 4.8, and 11.9. CXR showed no acute abnormality of the chest. Chest CTA with no evidence of pulmonary emboli, but did show mild cardiomegaly with likely elevated right heart pressures, advanced emphysematous changes without focal consolidation or suspicious pulmonary nodules, aortic and mitral valve calcification with moderate to severe coronary artery calcifications, and significantly enlarged thyroid. Initial EKG demonstrated sinus rhythm with PACs but no significant ST elevations or depressions. Second EKG found sinus tachycardia with PACs and slight ST depressions in and T-wave abnormalities, and then normal sinus rhythm without significant ST elevations or depressions. Pt was treated with aspirin and nitroglycerin 1 inch patch. Pt will be admitted to the hospital for treatment and further evaluation of symptomatic hypertensive urgency. <RENZO Fournier - Last Filed: 10/16/23 22:37> Review of Systems 2 Review of Systems: Substernal chest discomfort/acid reflux Lightheadedness, dizziness Nausea, vomiting Anxiety, depression Denies shortness of breath or difficulty breathing No cough Denies orthopnea, lower leg edema No chest pain/pressure Denies headache <RENZO Fournier - Last Filed: 10/16/23 22:37> [facility] Medical History: Medical History Restrictive lung disease COVID-19 vaccine series completed Heartburn Hypothyroid PVD (peripheral vascular disease) HTN (hypertension) Cough Allergic rhinitis <RENZO Fournier - Last Filed: 10/16/23 22:37> Surgical History: Surgical History Hx of tonsillectomy Hx of excision of mass H/O colonoscopy <RENZO Fournier - Last Filed: 10/16/23 22:37> Social History: Social History Are you a primary care director rn to a significant other at home: Yes (- disabled ) Do you presently have visiting nurse or other home services: Yes (for ) Alcohol intake: never Comment: Medicated with Tylenol 650 mg PO Patient Tobacco Use Status: Former Tobacco user Tobacco use type: Cigarette Smoked in Last 30 Days: No Use of substances other than those prescribed or required for medical reasons: No Advance Directives: Yes Advance Directives Information Provided: Yes Advance Directives on File: No Do you have a plan to hurt others: No Plan 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 occupational status: 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 <RENZO Fournier - Last Filed: 10/16/23 22:37> Meds Allergies/Adverse reactions: Allergies Allergy/AdvReac Type Severity Reaction Status Date / Time erythromycin base Allergy Intermediate Itching Verified 10/16/23 12:56 [ERYTHROMYCIN BASE] lisinopril Allergy Intermediate throat Verified 10/16/23 12:56 itchy simvastatin [From Zocor] AdvReac Severe Rash Verified 10/16/23 12:56 <RENZO Fournier - Last Filed: 10/16/23 22:37> Active Medications: Current Medications Acetaminophen (Acetaminophen 325 Mg Tablet) 650 mg PO Q6H PRN PRN Reason: Pain, Mild (Pain Scale 1-3) Enoxaparin Sodium (Enoxaparin Sodium 30 Mg/0.3 Ml Syringe) 30 mg SUBCUT Q24H [facility] Melatonin (Melatonin 3 Mg Tablet) 6 mg PO BEDTIME PRN PRN Reason: Insomnia Nitroglycerin (Nitroglycerin 0.4 Mg Tab.Subl) 0.4 mg SUBLINGUAL Q5MX3 PRN PRN Reason: Chest Pain Ondansetron HCl (Ondansetron Hcl 4 Mg/2 Ml Vial) 4 mg IVPUSH Q8H PRN PRN Reason: Nausea and Vomiting Sodium Chloride (0.9 % Sodium Chloride Flush 3 Ml Syringe) 3 ml IVFLUSH QSHIFT ANKIT <RENZO Fournier - Last Filed: 10/16/23 22:37> Home medications: Home Medications ?Medication ?Instructions ?Recorded ?Confirmed ?Last Taken ?Type aspirin 81 mg tablet,delayed 81 mg PO DAILY 04/20/20 10/16/23 10/15/23 History release (Adult Aspirin Regimen) cholecalciferol (vitamin D3) 50 50 mcg PO DAILY 04/20/20 10/16/23 10/15/23 History mcg (2,000 unit) capsule cilostazol 50 mg tablet 50 mg PO BID 04/20/20 10/16/23 10/15/23 History levothyroxine 50 mcg tablet 50 mcg PO DAILY@0600 04/20/20 10/16/23 10/15/23 History (Synthroid) loratadine 10 mg capsule 10 mg PO DAILY PRN allergy symptoms 04/20/20 10/16/23 10/15/23 History metoprolol tartrate 50 mg tablet 50 mg PO BID 04/20/20 10/16/23 10/15/23 History valsartan 160 mg tablet 160 mg PO BID 04/20/20 10/16/23 10/15/23 History ascorbic acid (vitamin C) 500 mg 500 mg PO DAILY 06/11/22 10/16/23 10/15/23 History capsule alprazolam 0.25 mg tablet 0.25 mg PO DAILY PRN Anxiety 10/16/23 10/16/23 10/15/23 History omeprazole 20 mg tablet,delayed 20 mg PO DAILY@0630 10/16/23 10/16/23 10/15/23 History release rosuvastatin 20 mg tablet 20 mg PO DAILY 10/16/23 10/16/23 10/15/23 History <RENZO Fournier - Last Filed: 10/16/23 22:37> Physical Exam 2 Vital Signs and Narrative: Vital Signs: Last Vital Signs Temp 97.5 F 10/16/23 19:19 Pulse 97 10/16/23 19:19 Resp 18 10/16/23 19:19 BP 168/71 H 10/16/23 19:19 Pulse Ox 100 10/16/23 19:19 O2 Del Method Room Air, Nasal C annula 10/16/23 19:19 O2 Flow Rate 2 10/16/23 19:19 BMI result Body Mass Index 27.3 <RENZO Fournier - Last Filed: 10/16/23 22:37> Constitutional: Alert, in no acute distress. Mental Status: Oriented to person, place and time. Eyes: Pupils are equal, round, and reactive to light. Ear, Nose, and Throat: Oropharynx clear, mucous membranes moist. Ears and nose without deformities. Trachea midline. Respiratory: Clear to auscultation bilaterally though diminished. No wheezing, rales, or rhonchi. Cardiovascular: S1, S2 regular rhythm, tachycardic. No murmurs, rubs, or gallops. Gastrointestinal: Abdomen soft, non-tender, non-distended. Normal bowel sounds. Neurologic: Cranial nerves II-XII are grossly intact bilaterally. No focal neurological deficits. Moves all extremities spontaneously. Skin: Warm, dry. Musculoskeletal: No cyanosis or clubbing. Extremities: No edema. Psychiatric: Normal mood and affect. <RENZO Fournier - Last Filed: 10/16/23 22:37> Results Labs CBC and Chem 7: 10/16/23 13:46 10/16/23 13:46 <RENZO Fournier - Last Filed: 10/16/23 22:37> Labs: Laboratory Results - last 24 hr 10/16/23 10/16/23 10/16/23 13:46 15:32 15:40 MCV 90.5 MCH 30.7 MCHC 33.9 RDW 12.2 Plt Count 177 MPV 10.8 Immature Gran % (Auto) 0.4 Neut % (Auto) 81.5 H Lymph % (Auto) 8.4 L Holt % (Auto) 6.4 Eos % (Auto) 2.5 Baso % (Auto) 0.8 Lymph # (Auto) 0.8 L Holt # (Auto) 0.6 Eos # (Auto) 0.2 Baso # (Auto) 0.1 Abs Immat Gran (auto) 0.04 H Absolute Neuts (auto) 7.5 Absolute Nucleated RBC 0.000 Nucleated RBC % (auto) 0.0 aPTT Heparin Protocol Anion Gap 11 L Estim Creat Clear Calc 28.6 Estimated GFR 45 Random Glucose 112 Calcium 10.1 Magnesium 1.8 Total Bilirubin 0.6 AST 21 ALT 15 Alkaline Phosphatase 88 Troponin I High Sens 4.6 4.8 C-Reactive Protein 0.53 H B-Natriuretic Peptide 274 H Total Protein 7.8 Albumin 3.9 Lipase 41 TSH 0.86 Urine Color Yellow Urine Appearance Clear Urine pH 8.0 Ur Specific [place] 1.010 Urine Protein 300 (3+) H Urine Glucose (UA) Negative Urine Ketones Negative Urine Blood Negative Urine Nitrite Negative Ur Leukocyte Esterase Negative Urine RBC 0-2 Urine WBC 0-5 Ur Squamous Epith Cells 0-2 Urine Bacteria None Seen Hyaline Casts 3-5 10/16/23 10/16/23 18:04 19:34 MCV MCH MCHC RDW Plt Count MPV Immature Gran % (Auto) Neut % (Auto) Lymph % (Auto) Holt % (Auto) Eos % (Auto) Baso % (Auto) Lymph # (Auto) Holt # (Auto) Eos # (Auto) Baso # (Auto) Abs Immat Gran (auto) Absolute Neuts (auto) Absolute Nucleated RBC Nucleated RBC % (auto) aPTT Heparin Protocol 30.7 L Anion Gap Estim Creat Clear Calc Estimated GFR Random Glucose Calcium Magnesium Total Bilirubin AST ALT Alkaline Phosphatase Troponin I High Sens 11.9 D C-Reactive Protein B-Natriuretic Peptide Total Protein Albumin Lipase TSH Urine Color Urine Appearance Urine pH Ur Specific [place] Urine Protein Urine Glucose (UA) Urine Ketones Urine Blood Urine Nitrite Ur Leukocyte Esterase Urine RBC Urine WBC Ur Squamous Epith Cells Urine Bacteria Hyaline Casts <RENZO Fournier - Last Filed: 10/16/23 22:37> Imaging Radiologist's Impressions: Impressions Chest X-Ray 10/16/23 14:07 IMPRESSION: No acute abnormality of chest. Chest CTA 10/16/23 17:29 IMPRESSION: Overall evaluation is slightly limited due to motion. 1. No central or segmental pulmonary emboli. 2. Mild cardiomegaly. Reflux of contrast into the intrahepatic IVC and hepatic veins suggesting elevated right heart pressures. 3. No focal consolidation or suspicious pulmonary nodule, although evaluation of lung parenchyma is limited due to motion. Advanced emphysematous changes, most pronounced in the upper lobes. 4. Aortic and mitral valvular calcifications. Moderate to severe coronary artery calcifications. 5. Significant enlarged thyroid. Correlation with dedicated ultrasound can be considered if not already performed. VTE: negative <RENZO Fournier - Last Filed: 10/16/23 22:37> Assessment and Plan (1) Hypertensive urgency: Status: Acute <RENZO Fournier - Last Filed: 10/16/23 22:37> Pt is an 88-year-old female with a PMH significant for?HTN, HLD, emphysema, carotid stenosis, and goiter who presents to the ED with?dizziness, lightheadedness, and substernal discomfort since this morning. Pt will be admitted to the hospital for treatment and further evaluation of symptomatic hypertensive urgency. Symptomatic hypertensive urgency Pt BP as high as 216/124, lightheadedness, dizziness, substernal acid reflux Initial EKG without ischemic changes, 2nd and 3rd showing ST depressions in V5, V6, and AVF, since resolved in 4th EKG Patient given nitro paste and aspirin in the ED to good effect Etiology unclear: cardiac vs pscychiatric CTA suggestive of pulmonary HTN Pt with increasing anxiety and depression, recently stopped escitalopram Will continue patient's home antihypertensives, titrate and optimize Repeat troponin in the morning Monitor on telemetry Hypoxia Pt desatting as low as 86% on RA Etiology unclear. CXR and CTA negative for acute disease; lungs CTA, though diminished Pt denies SOB, MORRIS, cough Pt without diagnosis of COPD but with 50 pack year hx of smoking, CTA showing advanced emhysematous changes Titrate supplemental O2 >92, wean as tolerated Anxiety/depression Patient previously on escitalopram 5 mg p.o. Stop taking approximately 6 weeks ago Patient interested in restarting some type of antidepressant Psychiatry consult for med management Insomnia Patient reports poor sleep habits since 2 years prior Previously tried Xanax, though does not like side effects Will treat with trazodone 50 mg p.r.n. HLD Continue statin Full Code Attending:?Dr. Hutchinson DVT Prophylaxis: Lovenox Med rec pending Pt will require a hospitalization of at least two nights for treatment of?hypertensive urgency with careful reduction in BP and close monitoring of BP and cardiac function. <RENZO Fournier - Last Filed: 10/16/23 22:37> Pt is an 88-year-old female with a PMH significant for?HTN, HLD, emphysema, carotid stenosis, and goiter who presents to the ED with?dizziness, lightheadedness, and substernal discomfort since this morning. Pt will be admitted to the hospital for treatment and further evaluation of symptomatic hypertensive urgency. Symptomatic hypertensive urgency Pt BP as high as 216/124, lightheadedness, dizziness, substernal acid reflux Initial EKG without ischemic changes, 2nd and 3rd showing ST depressions in V5, V6, and AVF, since resolved in 4th EKG Patient given nitro paste and aspirin in the ED to good effect Etiology unclear: cardiac vs pscychiatric CTA suggestive of pulmonary HTN Pt with increasing anxiety and depression, recently stopped escitalopram Will continue patient's home antihypertensives, titrate and optimize Repeat troponin in the morning Monitor on telemetry Hypoxia, ?pulm HTN Pt desatting as low as 86% on RA Etiology unclear. CXR and CTA negative for acute disease; lungs CTA with elevated right sided pressures Pt denies SOB, MORRIS, cough Pt without diagnosis of COPD but with 50 pack year hx of smoking, CTA showing advanced emhysematous changes Titrate supplemental O2 >92, wean as tolerated Obtain Echo Anxiety/depression Patient previously on escitalopram 5 mg p.o. Stop taking approximately 6 weeks ago Patient interested in restarting some type of antidepressant Psychiatry consult for med management Insomnia Patient reports poor sleep habits since 2 years prior Previously tried Xanax, though does not like side effects Will treat with trazodone 50 mg p.r.n. HLD Continue statin Full Code Attending:?Dr. Hutchinson DVT Prophylaxis: Lovenox Med rec pending Pt will require a hospitalization of at least two nights for treatment of?hypertensive urgency with careful reduction in BP and close monitoring of BP and cardiac function. <Herminio Hutchinson MD - Last Filed: 10/16/23 22:47> Quality Stroke Does the patient have a stroke diagnosis?: No <RENZO Fournier - Last Filed: 10/16/23 22:37> VTE Prior VTE?: No <RENZO Fournier - Last Filed: 10/16/23 22:37> VTE Risk Level:: Medical - moderate - high <RENZO Fournier - Last Filed: 10/16/23 22:37> VTE Device Contraindication: Treatment Not Indicated <RENZO Fournier - Last Filed: 10/16/23 22:37> VTE Drug Contraindication: N/A - Med Ordered <RENZO Fournier - Last Filed: 10/16/23 22:37>
--- NOTE | 2023-10-16 22:31 | PHA.MEDREC ---
Pharmacy Consult ? Medication Reconciliation Pharmacy has completed the medication reconciliation. Confirmed medications list provided by patient. Patient stated they are no longer taking escitalopram for the time being.
[2023-10-16] MEDS: traZODone HCL 50 MG TABLET PO (23:41)
[2023-10-16] MEDS: Enoxaparin Sodium 30 MG/0.3 ML SYRINGE SUBCUT (23:41)
[2023-10-16] MEDS: 0.9 % Sodium Chloride Flush 3 ML SYRINGE IVFLUSH (23:42)
[2023-10-17] VITALS (9 sets, daily range): BP systolic 130–201; BP diastolic 55–96; PULSE 78–96; RESP 14–20; TEMP 36.2–36.8; O2SAT 92–97
[2023-10-17 06:03] LABS: MANUAL DIFF FLAG NO
[2023-10-17 06:24] LABS: Anion Gap 12 (12-20); Blood Urea Nitrogen 24 mg/dL (9-16); Calcium 9.4 mg/dL (8.4-10.2); Carbon Dioxide 27 mmol/L (22-29); Chloride 98 mmol/L (96-108); Creatinine Clr Calc Pharmacy 27.6; Estimated Glomerular Filt Rate 44; Glucose Random 86 mg/dL (60-115); Potassium 3.8 mmol/L (3.3-5.1); Sodium 133 mmol/L (135-145)
[2023-10-17 06:27] LABS: Basophils Absolute Auto 0.1 X10*3/uL (0.0-0.2); Basophils Percent Auto 0.8 % (0-2); Eosinophils Absolute Auto 0.2 X10*3/uL (0.0-0.4); Hematocrit 36.8 % (37.0-47.0); Hemoglobin 12.7 g/dl (12.0-16.0); Imm Gran Abs Auto 0.02 X10*3/uL (0.00-0.03); Imm Gran Pct Auto 0.3 % (0.0-0.4); Lymphocytes Absolute Auto 1.4 X10*3/uL (1.2-4.9); Lymphocytes Percent Auto 18.4 % (20-40); Mean Corpuscular HGB Conc 34.5 g/dl (31.0-35.0); Mean Corpuscular Hemoglobin 30.3 pg (27.0-33.0); Mean Corpuscular Volume 87.8 fL (80.0-98.0); Mean Platelet Volume 11.2 fL (9.4-12.3); Monocytes Absolute Auto 0.8 X10*3/uL (0.1-1.2); Monocytes Percent Auto 10.3 % (2-11); Neutrophils Percent Auto 67.2 % (45-73); Platelet Count 187 X10*3/uL (160-400); Red Blood Count 4.19 X10*6/uL (4.20-5.50); Red Cell Distribution Width 12.1 % (11.0-16.0); White Blood Count 7.4 X10*3/uL (4.8-10.8)
--- NOTE | 2023-10-17 06:34 | PC.NURSE ---
a&ox4. vss and up to date. patient deneis any pain at present. Respiration even and unlabored, not in cute distress. Call posey in reach. Plan of care ongoing.
--- NOTE | 2023-10-17 07:00 | CA_ITS ---
Transthoracic Echocardiogram Patient (Last, First, Middle): Effie Aleman, Gender: Female Date of : 1935 Age: 88 Procedure Date: 10/17/2023 Procedure Type: Transthoracic Echocardiogram Location: ER Height: 152.4 cm Weight: 63.5 kg BSA: 1.60 m2 Heart Rate: bpm BP: 130 / 71 mmHg Body Technician/Painter: YOLY Gonzalez MD: Herminio Hutchinson MD Application Support Manager: Williams Teague MD Symptoms: ?pulm htn Study Quality: Adequate ECG Rhythm: Sinus Conclusions: - 1. Normal LV ejection fraction of 60 65% with mild LVH with impaired relaxation filling pattern 2. Moderately dilated left atrium 3. Severe calcific mitral stenosis with [id number] mitral regurgitation 4. Severely elevated right ventricular systolic pressure 5. No gross pericardial effusion Findings Left Ventricle Normal left ventricular size and systolic function. There is mildly increased left ventricular wall thickness. The visually estimated ejection fraction is between 60-65%. Spectral Doppler is indicative of an impaired relaxation filling pattern. Right Ventricle Normal right ventricular cavity size and systolic function. Atria The left atrium is moderately dilated. There is no evidence of interatrial shunt. The right atrium is mildly dilated. Aortic Valve There is mild calcification of the aortic valve. There is mild thickening of the aortic valve. There is mild aortic valve stenosis. The peak aortic gradient is 17 mmHg.The mean gradient is 9 mmHg. The aortic valve area is 2.24 cm2. There is no aortic valve regurgitation. Mitral Valve There is moderate anterior and severe posterior mitral leaflet thickening. The anterior mitral leaflet is immobile and the posterior mitral leaflet is immobile. There is moderate anterior and severe posterior mitral annular calcification. There is severe mitral annular calcification. There is mild to moderate mitral valve regurgitation. There is severe mitral valve stenosis. Pulmonic Valve The pulmonic valve is likely normal. Tricuspid Valve Normal tricuspid valve structure. There is mild tricuspid valve regurgitation. Normal right atrial pressure. Severe pulmonary hypertension is present. Great Vessels All visible segments of the aorta are normal in size. The pulmonary artery was not well visualized. There is no dilatation of the ascending aorta measuring 2.60 cm. Venous The inferior vena cava is normal in size and collapses greater than 50% with inspiration. Pericardium/Pleural There is no evidence of pericardial effusion. Prior Study Comparison Changes noted compared to prior study dated: 01/07/2019. Mitral stenosis appears to be severe Measurements 2D Linear Measurements IVSd: 1.30 0.6-0.9/0.6-1.0 cm LVIDd: 3.07 3.9-5.3/4.2-5.9 cm LVIDd Index: 1.92 2.4-3.2/2.2-3.1 cm/m2 LVIDs: 1.67 2.0-3.6 cm LVPWd: 1.26 0.7-1.1 cm LA Diam: 3.50 2.7-3.8/3.0-4.0 cm LAIDs Index: 2.19 1.5-2.3 cm/m2 LV Mass: 155.50 67-162/88-224 g LV Mass Index: 97.19 43-95/49-115 g/m2 LVOT Diam: 1.90 3.0+(-)1.3 cm Mitral Valve MV VTI: 0.58 MV Pk Daniel: 2.35 MV Mn Daniel: 1.82 MV Pk Grad: 22.00 MV Mn Grad: 15.00 MV Pk E: 2.13 MV PK A: 2.12 MV Decel Time: 195.00 E/A: 1.00 E'Lateral: 3.70 E'Medial: 6.09 E/E' Med: 35.00 E/E' Lat: 57.60 PHT: 57.00 MVA PHT: 3.86 MVA Continuity: 1.33 Decel [place]: 10.91 Aortic Valve AoV Pk Daniel: 2.07 AoV Mn Daniel: 1.34 AoV VTI: 0.35 AoV Pk Grad: 17.00 Aov Mn Grad: 9.00 CHRISTINE Cont.VTI: 2.24 LVOT LVOT Pk Daniel: 1.46 LVOT Mn Daniel: 1.04 LVOT VTI: 0.27 LVOT Pk Grad: 9.00 LVOT Mn Grad: 5.00 LVOT Diam: 1.90 LVOT Area: 2.84 Diastolic Function MV Pk E: 2.13 MV Pk A: 2.12 E/A: 1.00 E'Medial: 6.09 E/E' Med: 35.00 E' Laterial: 3.70 E/E' Lat: 57.60 Right Ventricle TAPSE (mm): 17.90 TVS' Daniel: 13.40 Tricuspid Valve TR Pk Daniel: 3.89 TR Pk Grad: 61.00 RA Press: 3.00 RVSP: 64.00 Great Vessels Aorta Sinus of Valsalva: 2.50 2.0-3.5 cm Ao Asc: 2.60 2.1-3.4 cm Updated in Other Vendor System with Status of Final Williams Teague MD electronically signed on 10/17/2023 1:05:52 PM with status of Final
--- NOTE | 2023-10-17 09:12 | MHC.CM.PN ---
PATIENT LIVES ALONE AND IS INDEPENDENT WITH ADLS, INCLUDING TRANSPORTATION. NO DME OR VNA SERVICES IN THE HOME. SHE DOES HAVE [employer] DAUGHTER AND SON, AMAN AND WILFREDO, ARE HCP AGENTS AND A COPY IS REQUESTED. IMM EXPLAINED AND LEFT BEDSIDE. PATIENT VERBALIZES UNDERSTANDING OF HER MEDICARE RIGHTS. IMM 10/16 IN CHART.
[2023-10-17] MEDS: Aspirin Enteric Coated 81 MG TABLET.DR PO (09:23)
[2023-10-17] MEDS: Valsartan 160 MG TABLET PO ×2 (09:23→23:50)
[2023-10-17] MEDS: Ascorbic Acid 500 MG TABLET PO (09:23)
[2023-10-17] MEDS: Atorvastatin Calcium 80 MG TABLET PO (09:23)
[2023-10-17] MEDS: Metoprolol Tartrate 50 MG TABLET PO ×2 (09:23→23:52)
[2023-10-17] MEDS: Cholecalciferol (Vitamin D3) 25 MCG TABLET 50 MCG PO (09:24)
[2023-10-17] MEDS: 0.9 % Sodium Chloride Flush 3 ML SYRINGE IVFLUSH ×3 (09:28→23:54)
--- NOTE | 2023-10-17 10:14 | P.PNIM_ITS ---
Subjective Subjective Date of Service: 10/17/23 Interval History: symptoms resolved Physical Exam 2 Vital Signs: Vital Signs: Last Vital Signs Temp 97.1 F 10/17/23 09:17 Pulse 96 10/17/23 09:17 Resp 20 10/17/23 09:17 BP 156/73 H 10/17/23 09:17 Pulse Ox 95 10/17/23 09:17 O2 Del Method Room Air 10/17/23 09:17 O2 Flow Rate 2 10/17/23 02:01 BMI result Body Mass Index 27.3 General: AO X 3, no acute distress Resp: CTA bilateral, no accessory muscles used CVS: S1,S2,RRR GI: soft, non tender, non distended Neuro: motor grossly intact, alert Psych: appropriate affect, appropriate insight Objective Data Active Medications Acetaminophen (Acetaminophen 325 Mg Tablet) 650 mg PO Q6H PRN PRN Reason: Pain, Mild (Pain Scale 1-3) Alprazolam (Alprazolam 0.25 Mg Tablet) 0.25 mg PO DAILY PRN PRN Reason: Anxiety Ascorbic Acid (Ascorbic Acid 500 Mg Tablet) 500 mg PO DAILY [facility] Last Admin: 10/17/23 09:23 Dose: 500 mg Documented By: GOLDIE Aspirin (Aspirin Enteric Coated 81 Mg Tablet.Dr) 81 mg PO DAILY [facility] Last Admin: 10/17/23 09:23 Dose: 81 mg Documented By: GOLDIE Atorvastatin Calcium (Atorvastatin Calcium 80 Mg Tablet) 80 mg PO DAILY [facility] Last Admin: 10/17/23 09:23 Dose: 80 mg Documented By: GOLDIE Cilostazol (Cilostazol 50 Mg Tablet) 50 mg PO BID [facility] Enoxaparin Sodium (Enoxaparin Sodium 30 Mg/0.3 Ml Syringe) 30 mg SUBCUT Q24H [facility] Last Admin: 10/16/23 23:41 Dose: 30 mg Documented By: ZULEIKA Levothyroxine Sodium (Levothyroxine Sodium 50 Mcg Tablet) 50 mcg PO DAILY@0600 [facility] Melatonin (Melatonin 3 Mg Tablet) 6 mg PO BEDTIME PRN PRN Reason: Insomnia Metoprolol Tartrate (Metoprolol Tartrate 50 Mg Tablet) 50 mg PO BID [facility]; Protocol Last Admin: 10/17/23 09:23 Dose: 50 mg Documented By: GOLDIE Nitroglycerin (Nitroglycerin 0.4 Mg Tab.Subl) 0.4 mg SUBLINGUAL Q5MX3 PRN PRN Reason: Chest Pain Omeprazole (Omeprazole 20 Mg Capsule.Dr) 20 mg PO DAILY@0630 [facility] Ondansetron HCl (Ondansetron Hcl 4 Mg/2 Ml Vial) 4 mg IVPUSH Q8H PRN PRN Reason: Nausea and Vomiting Simethicone (Simethicone 80 Mg Tab.Chew) 80 mg PO QIDWMHS PRN PRN Reason: Gas Sodium Chloride (0.9 % Sodium Chloride Flush 3 Ml Syringe) 3 ml IVFLUSH QSHIFT [facility] Last Admin: 10/17/23 09:28 Dose: 3 ml Documented By: GOLDIE Trazodone HCl (Trazodone Hcl 50 Mg Tablet) 50 mg PO BEDTIME PRN PRN Reason: Insomnia Last Admin: 10/16/23 23:41 Dose: 50 mg Documented By: ZULEIKA Valsartan (Valsartan 160 Mg Tablet) 160 mg PO BID [facility]; Protocol Last Admin: 10/17/23 09:23 Dose: 160 mg Documented By: GOLDIE Vitamin D (Cholecalciferol (Vitamin D3) 25 Mcg Tablet) 50 mcg PO DAILY [facility] Last Admin: 10/17/23 09:24 Dose: 50 mcg Documented By: GOLDIE Labs 10/17/23 05:38 10/17/23 05:38 Labs: Laboratory Results - last 24 hr 10/16/23 10/16/23 10/16/23 13:46 15:32 15:40 MCV 90.5 MCH 30.7 MCHC 33.9 RDW 12.2 Plt Count 177 MPV 10.8 Immature Gran % (Auto) 0.4 Neut % (Auto) 81.5 H Lymph % (Auto) 8.4 L [place] % (Auto) 6.4 Eos % (Auto) 2.5 Baso % (Auto) 0.8 Lymph # (Auto) 0.8 L [place] # (Auto) 0.6 Eos # (Auto) 0.2 Baso # (Auto) 0.1 Abs Immat Gran (auto) 0.04 H Absolute Neuts (auto) 7.5 Absolute Nucleated RBC 0.000 Nucleated RBC % (auto) 0.0 aPTT Heparin Protocol Anion Gap 11 L Estim Creat Clear Calc 28.6 Estimated GFR 45 Random Glucose 112 Calcium 10.1 Magnesium 1.8 Total Bilirubin 0.6 AST 21 ALT 15 Alkaline Phosphatase 88 Troponin I High Sens 4.6 4.8 C-Reactive Protein 0.53 H B-Natriuretic Peptide 274 H Total Protein 7.8 Albumin 3.9 Lipase 41 TSH 0.86 Urine Color Yellow Urine Appearance Clear Urine pH 8.0 Ur Specific [place] 1.010 Urine Protein 300 (3+) H Urine Glucose (UA) Negative Urine Ketones Negative Urine Blood Negative Urine Nitrite Negative Ur Leukocyte Esterase Negative Urine RBC 0-2 Urine WBC 0-5 Ur Squamous Epith Cells 0-2 Urine Bacteria None Seen Hyaline Casts 3-5 10/16/23 10/16/23 10/17/23 18:04 19:34 05:38 MCV 87.8 MCH 30.3 MCHC 34.5 RDW 12.1 Plt Count 187 MPV 11.2 Immature Gran % (Auto) 0.3 Neut % (Auto) 67.2 Lymph % (Auto) 18.4 L [place] % (Auto) 10.3 Eos % (Auto) 3.0 Baso % (Auto) 0.8 Lymph # (Auto) 1.4 [place] # (Auto) 0.8 Eos # (Auto) 0.2 Baso # (Auto) 0.1 Abs Immat Gran (auto) 0.02 Absolute Neuts (auto) 5.0 Absolute Nucleated RBC 0.000 Nucleated RBC % (auto) 0.0 aPTT Heparin Protocol 30.7 L Anion Gap 12 Estim Creat Clear Calc 27.6 Estimated GFR 44 Random Glucose 86 Calcium 9.4 D Magnesium Total Bilirubin AST ALT Alkaline Phosphatase Troponin I High Sens 11.9 D 17.0 C-Reactive Protein B-Natriuretic Peptide Total Protein Albumin Lipase TSH Urine Color Urine Appearance Urine pH Ur Specific [place] Urine Protein Urine Glucose (UA) Urine Ketones Urine Blood Urine Nitrite Ur Leukocyte Esterase Urine RBC Urine WBC Ur Squamous Epith Cells Urine Bacteria Hyaline Casts Assessment and Plan (1) Hypertensive urgency: Status: Acute Plan 88F PMH htn, hld, copd, carotid stenosis, goiter presented with dizziness, found to be hypertensive and ekg changes Hypertensive urgency Improving, continue metoprolol 50 mg b.i.d. and valsartan [address] head, patient not agreeable to MRI Dynamic EKG changes Troponin negative Underlying CAD seen on CTA Continue antiplatelet and statin Cardio eval Transient hypoxia To 86% on room air Now 93% on room air, denies shortness of breath, CTA negative Likely underlying COPD DVT prophylaxis with Lovenox Full Code Reason for continued hospitalization: Optimizing blood pressure control, cardio eval, CT head pending Quality Stroke Does the patient have a stroke diagnosis?: No VTE Prior VTE?: No VTE Risk Level:: Medical - moderate - high VTE Device Contraindication: Treatment Not Indicated VTE Drug Contraindication: N/A - Med Ordered
[2023-10-17] MEDS: cilostazoL 50 MG TABLET PO ×2 (11:57→23:53)
--- NOTE | 2023-10-17 12:05 | PC.NURSE ---
Patient sitting up on stretcher talking with her daughter. Patient is alert and oriented, no s/s of distress noted at this time, patient seems to be in good spirits.
--- NOTE | 2023-10-17 15:51 | MHC.EDTECH ---
THIS PCT ASSUMED CARE OF PATIENT AT 1500 ,VITALS TAKEN ,PATIENT IS COMFORTABLE ,PATIENT 2 DAUGHTERS AT BEDSIDE .CALL [facility] WITHIN PATIENT REACH .
--- NOTE | 2023-10-17 15:57 | PM.CNCAR ---
History of Present Illness History of Present Illness Date of Service: 10/17/23 Requesting physician: Matt Nix Consult reason: other (Hypertensive urgency) Chief complaint: Dizziness Narrative: I was consulted to see Effie in cardiology consultation today for dynamic EKG changes along with chest discomfort in the setting of hypertensive urgency. Patient has known prior history of hypertension for many years but does not measure her blood pressures at home. She has been taking her medications at home on current doses that she has getting in the hospital but she said this is at variable time due to her sleep pattern. She does get easily anxious since her 's passing 2 and half years ago and has had lot of difficulty getting a good night's sleep. She sleeps at odd hours. Does not get a good night rest. She remains anxious. She was on Lexapro for her general anxiety disorder but she decided to stop taking it and as a result the daughters were present at bedside both of them said that there has been a change in her anxiety and stress level. She came to the hospital because yesterday she noticed after eating that she would get some heartburn-like symptoms she initially thought these were heartburn symptoms. She also got clammy and felt nauseous and vomited as per 1 of the daughters although she denies it. She then measured a blood pressure at home which was significantly elevated and subsequently came to the emergency room where the blood pressure was even further elevated. She would EKG performed and showed sinus tachycardia with PACs and EKG showed some ST depression in the anterolateral leads. Subsequent EKG after treating a blood pressure had improved and the ST depression has improved. Her chest discomfort has improved. Her troponins are within normal limits. She was also having sudden onset symptoms of shortness of breath which have now resolved. Her BNP was elevated to 74 and might have had acute CHF related to hypertensive urgency which corrected after blood pressure control. CT scan reveals diffuse and dense calcification in all 3 coronary vessels. She has extensive history of peripheral vascular disease with disease in her right lower extremity as well as carotid disease up to 70% which are being managed by vascular surgery at [facility] with medical therapy. Symptoms of claudication have improved. She does not have any clear symptoms of angina and has never been worked up for obstructive coronary artery disease in the past. She denies any symptoms of heart failure otherwise. She does have symptoms of postprandial abdominal discomfort and gassiness. She has never been evaluated for mesenteric ischemia. She says she tries to be compliant with medication. Strong family history of premature coronary artery disease in multiple of her 1st degree relatives. Review of Systems Constitutional: Constitutional: Reports no additional constitutional complaints Eyes: Eyes: Reports no additional eye complaints Cardiovascular: Cardiovascular: Reports chest pain at rest, Denies syncope, Denies leg edema, Reports lightheadedness, Denies palpitations, Reports dyspnea and Reports other (Diaphoresis) Respiratory: Respiratory: Reports no additional respiratory complaints and Reports dyspnea Gastrointestinal: Gastrointestinal: Reports dyspepsia, Reports vomiting and Reports other (Postprandial discomfort) Genitourinary: Genitourinary: Reports no additional female genitourinary complaints Musculoskeletal: Musculoskeletal: Reports no additional musculoskeletal complaints Integumentary/Breasts: Skin/Breast: Reports system reviewed and no additional complaints, except as docu Neurologic: Reports system reviewed and no additional complaints, except as documented and Denies syncope Psychiatric: Psychiatric: Reports no additional psychiatric complaints Endocrine: Endocrine: Denies palpitations Hematologic/Lymphatic: Hematologic/Lymphatic: Reports no additional hematologic/lymphatic complaints Allergic/Immunologic: Allergic/Immunologic: Reports no additional allergic/immunologic complaints PMFSH Past Medical History Medical History Restrictive lung disease COVID-19 vaccine series completed Heartburn Hypothyroid PVD (peripheral vascular disease) HTN (hypertension) Cough Allergic rhinitis Surgical History Surgical History Hx of tonsillectomy Hx of excision of mass H/O colonoscopy Social History Social History 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 (-disabled ) Do you presently have visiting nurse or other home services: Yes (for ) Alcohol intake: never Comment: Medicated with Tylenol 650 mg PO Patient Tobacco Use Status: Former Tobacco user Tobacco use type: Cigarette Smoked in Last 30 Days: No Use of substances other than those prescribed or required for medical reasons: No Advance Directives: Yes Advance Directives Information Provided: Yes Advance Directives on File: No Do you have a plan to hurt others: No Plan service: No Current occupational status: 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 Meds Allergies Allergy/AdvReac Type Severity Reaction Status Date / Time erythromycin base Allergy Intermediate Itching Verified 10/16/23 12:56 [ERYTHROMYCIN BASE] lisinopril Allergy Intermediate throat Verified 10/16/23 12:56 itchy simvastatin [From Zocor] AdvReac Severe Rash Verified 10/16/23 12:56 Active Medications: Current Medications Acetaminophen (Acetaminophen 325 Mg Tablet) 650 mg PO Q6H PRN PRN Reason: Pain, Mild (Pain Scale 1-3) Alprazolam (Alprazolam 0.25 Mg Tablet) 0.25 mg PO DAILY PRN PRN Reason: Anxiety Ascorbic Acid (Ascorbic Acid 500 Mg Tablet) 500 mg PO DAILY [facility] Last Admin: 10/17/23 09:23 Dose: 500 mg Aspirin (Aspirin Enteric Coated 81 Mg Tablet.) 81 mg PO DAILY [facility] Last Admin: 10/17/23 09:23 Dose: 81 mg Atorvastatin Calcium (Atorvastatin Calcium 80 Mg Tablet) 80 mg PO DAILY [facility] Last Admin: 10/17/23 09:23 Dose: 80 mg Cilostazol (Cilostazol 50 Mg Tablet) 50 mg PO BID [facility] Last Admin: 10/17/23 11:57 Dose: 50 mg Enoxaparin Sodium (Enoxaparin Sodium 30 Mg/0.3 Ml Syringe) 30 mg SUBCUT Q24H [facility] Last Admin: 10/16/23 23:41 Dose: 30 mg Levothyroxine Sodium (Levothyroxine Sodium 50 Mcg Tablet) 50 mcg PO DAILY@0600 [facility] Melatonin (Melatonin 3 Mg Tablet) 6 mg PO BEDTIME PRN PRN Reason: Insomnia Metoprolol Tartrate (Metoprolol Tartrate 50 Mg Tablet) 50 mg PO BID [facility]; Protocol Last Admin: 10/17/23 09:23 Dose: 50 mg Nitroglycerin (Nitroglycerin 0.4 Mg Tab.Subl) 0.4 mg SUBLINGUAL Q5MX3 PRN PRN Reason: Chest Pain Omeprazole (Omeprazole 20 Mg Capsule.) 20 mg PO DAILY@0630 [facility] Ondansetron HCl (Ondansetron Hcl 4 Mg/2 Ml Vial) 4 mg IVPUSH Q8H PRN PRN Reason: Nausea and Vomiting Simethicone (Simethicone 80 Mg Tab.Chew) 80 mg PO QIDWMHS PRN PRN Reason: Gas Sodium Chloride (0.9 % Sodium Chloride Flush 3 Ml Syringe) 3 ml IVFLUSH QSHIFT [facility] Last Admin: 10/17/23 09:28 Dose: 3 ml Trazodone HCl (Trazodone Hcl 50 Mg Tablet) 50 mg PO BEDTIME PRN PRN Reason: Insomnia Last Admin: 10/16/23 23:41 Dose: 50 mg Valsartan (Valsartan 160 Mg Tablet) 160 mg PO BID [facility]; Protocol Last Admin: 10/17/23 09:23 Dose: 160 mg Vitamin D (Cholecalciferol (Vitamin D3) 25 Mcg Tablet) 50 mcg PO DAILY [facility] Last Admin: 10/17/23 09:24 Dose: 50 mcg Home Medications ?Medication ?Instructions ?Recorded ?Confirmed ?Last Taken ?Type aspirin 81 mg tablet,delayed 81 mg PO DAILY 04/20/20 10/16/23 10/15/23 History release (Adult Aspirin Regimen) cholecalciferol (vitamin D3) 50 50 mcg PO DAILY 04/20/20 10/16/23 10/15/23 History mcg (2,000 unit) capsule cilostazol 50 mg tablet 50 mg PO BID 04/20/20 10/16/23 10/15/23 History levothyroxine 50 mcg tablet 50 mcg PO DAILY@0600 04/20/20 10/16/23 10/15/23 History (Synthroid) loratadine 10 mg capsule 10 mg PO DAILY PRN allergy symptoms 04/20/20 10/16/23 10/15/23 History metoprolol tartrate 50 mg tablet 50 mg PO BID 04/20/20 10/16/23 10/15/23 History valsartan 160 mg tablet 160 mg PO BID 04/20/20 10/16/23 10/15/23 History ascorbic acid (vitamin C) 500 mg 500 mg PO DAILY 06/11/22 10/16/23 10/15/23 History capsule alprazolam 0.25 mg tablet 0.25 mg PO DAILY PRN Anxiety 10/16/23 10/16/23 10/15/23 History omeprazole 20 mg tablet,delayed 20 mg PO DAILY@0630 10/16/23 10/16/23 10/15/23 History release rosuvastatin 20 mg tablet 20 mg PO DAILY 10/16/23 10/16/23 10/15/23 History Physical Exam Vital Signs: Vital Signs: Last Vital Signs Temp 97.9 F 10/17/23 15:48 Pulse 80 10/17/23 15:48 Resp 16 10/17/23 15:48 BP 142/60 H 10/17/23 15:48 Pulse Ox 95 10/17/23 15:48 O2 Del Method Room Air 10/17/23 15:48 O2 Flow Rate 2 10/17/23 02:01 BMI result Body Mass Index 27.3 Const: General: cooperative, comfortable, no acute distress, alert, awake and anxious Nutritional Appearance: obese Orientation/consciousness: patient oriented x3 Limitations: no limitations HEENT: Head: Yes normocephalic and Yes atraumatic Neck: Neck: Yes trachea midline, Yes supple and Yes no JVD Carotids: bruit Resp: Effort & Inspection: normal respiratory effort Auscultation: clear to auscultation bilaterally Cardio: Jugular venous distension: no JVD Palpation: normal PMI Rate: regular rate Rhythm: regular rhythm Heart sounds: S1 normal heart sound present, S2 normal heart sound present, no click, no gallops, Murmur heart sound present systolic early and Other heart sounds present (S4) GI: Auscultation: normal bowel sounds Skin: General skin exam: no rashes or lesions noted Neuro: General: patient oriented x3 and no focal motor deficits Extrem: General: Yes no clubbing, cyanosis or edema Psych: Appearance: grossly normal Affect: Anxious affect present Objective Labs and Meds 10/17/23 05:38 10/17/23 05:38 Lab results: Laboratory Results - last 24 hr 10/16/23 10/16/23 10/16/23 13:46 15:32 18:04 WBC RBC Hgb Hct MCV MCH MCHC RDW Plt Count MPV Immature Gran % (Auto) Neut % (Auto) Lymph % (Auto) [place] % (Auto) Eos % (Auto) Baso % (Auto) Lymph # (Auto) [place] # (Auto) Eos # (Auto) Baso # (Auto) Abs Immat Gran (auto) Absolute Neuts (auto) Absolute Nucleated RBC Nucleated RBC % (auto) aPTT Heparin Protocol Sodium Potassium Chloride Carbon Dioxide Anion Gap BUN Creatinine Estim Creat Clear Calc Estimated GFR Random Glucose Calcium Troponin I High Sens 4.8 11.9 D B-Natriuretic Peptide 274 H 10/16/23 10/17/23 19:34 05:38 WBC 7.4 RBC 4.19 L Hgb 12.7 Hct 36.8 L MCV 87.8 MCH 30.3 MCHC 34.5 RDW 12.1 Plt Count 187 MPV 11.2 Immature Gran % (Auto) 0.3 Neut % (Auto) 67.2 Lymph % (Auto) 18.4 L [place] % (Auto) 10.3 Eos % (Auto) 3.0 Baso % (Auto) 0.8 Lymph # (Auto) 1.4 [place] # (Auto) 0.8 Eos # (Auto) 0.2 Baso # (Auto) 0.1 Abs Immat Gran (auto) 0.02 Absolute Neuts (auto) 5.0 Absolute Nucleated RBC 0.000 Nucleated RBC % (auto) 0.0 aPTT Heparin Protocol 30.7 L Sodium 133 L Potassium 3.8 D Chloride 98 Carbon Dioxide 27 Anion Gap 12 BUN 24 H Creatinine 1.17 Estim Creat Clear Calc 27.6 Estimated GFR 44 Random Glucose 86 Calcium 9.4 D Troponin I High Sens 17.0 B-Natriuretic Peptide Echocardiogram shows normal LV systolic function with mild LVH with what appears to be severe calcific mitral stenosis and severely elevated right ventricular systolic pressure EKG shows sinus tachycardia with anterolateral ST depressions with PACs Imaging Radiologist's impression: Impressions Chest CTA 10/16/23 17:29 IMPRESSION: Overall evaluation is slightly limited due to motion. 1. No central or segmental pulmonary emboli. 2. Mild cardiomegaly. Reflux of contrast into the intrahepatic IVC and hepatic veins suggesting elevated right heart pressures. 3. No focal consolidation or suspicious pulmonary nodule, although evaluation of lung parenchyma is limited due to motion. Advanced emphysematous changes, most pronounced in the upper lobes. 4. Aortic and mitral valvular calcifications. Moderate to severe coronary artery calcifications. 5. Significant enlarged thyroid. Correlation with dedicated ultrasound can be considered if not already performed. VTE: negative Head CT 10/17/23 13:13 IMPRESSION: No acute findings. Mild generalized atrophy and nonspecific periventricular white matter disease. Assessment and Plan (1) Hypertensive urgency: Status: Acute Hypertensive urgency in this elderly woman with diffuse and significant vascular disease. High likelihood of renal artery stenosis which needs to be evaluated for. The blood pressures improved with her usual medical therapy although slightly on the higher side. She does not recall any missing of her doses or any high salt diet although she remains very anxious and has a very stressed life along with poor sleep pattern which could contribute to her acute hypertension. Discussed about stress mitigation strategies and improving her sleep pattern. Also taking medication on regular hours is extremely necessary. Advised to monitor blood pressure at home maintain a log which will guide future therapy. If she is significant renal artery stenosis may require intervention for the same to avoid recurrent hospitalization. Based on her EKG and her symptoms there is high likelihood of myocardial ischemia related to hypertensive urgency in high likelihood of underlying obstructive coronary artery disease. She is dense coronary calcification. She also had transient heart failure which is probably ischemic heart failure related to hypertensive urgency. Management would be to treat her blood pressure given her age interventional therapy would be reserved for recurrent symptoms despite aggressive and good blood pressure control. This was discussed with her in details. Continue aspirin therapy. Continue high-intensity statin therapy. Continue current antihypertensive therapy. Observe for 1 more day and hopefully we can get renal duplex to further assess for renal artery stenosis. She also has symptoms suggestive of mesenteric ischemia and will need workup for the same as an outpatient and can be pursued through her vascular surgery office. Will follow with her as outpatient. Procedures Date of Service Date of Service: 10/17/23
--- NOTE | 2023-10-17 17:00 | PC.NURSE ---
Patient requesting to use commode, patient assisted to bedside commode without difficulty.
[2023-10-17] MEDS: Enoxaparin Sodium 30 MG/0.3 ML SYRINGE SUBCUT (20:25)
[2023-10-17] MEDS: ALPRAZolam 0.25 MG TABLET PO (23:49)
[2023-10-17] MEDS: Melatonin 3 MG TABLET 6 MG PO (23:49)
[2023-10-18] VITALS (12 sets, daily range): BP systolic 118–201; BP diastolic 57–96; PULSE 73–99; RESP 16–20; TEMP 36.2–36.7; O2SAT 93–96; BMI 28.2
--- NOTE | 2023-10-18 05:28 | PC.NURSE ---
Pt with elevated bp 201 systolic, very anxious at the time. she took her PM meds and prn xanax with bp down to 150's. MD Hutchinson aware. Pt denies s/s Sleep apnea on admission assessment. She was placed on O2 monitor on arrival. She was noted to be desatting as low as 67% then coming back up to 90's at approx 0200. Pt noted to be sleeping with no s/s distress but with some snoring and snorting. Pt placed on 2L n/c when pattern developed. Dr. Hutchinson aware no further desatting noted. She denies dizziness or other complaint at this time. plan of care ongoing.....
[2023-10-18 06:31] LABS: Hematocrit 36.2 % (37.0-47.0); Hemoglobin 12.5 g/dl (12.0-16.0); Mean Corpuscular HGB Conc 34.5 g/dl (31.0-35.0); Mean Corpuscular Hemoglobin 30.2 pg (27.0-33.0); Mean Corpuscular Volume 87.4 fL (80.0-98.0); Mean Platelet Volume 10.9 fL (9.4-12.3); Platelet Count 176 X10*3/uL (160-400); Red Blood Count 4.14 X10*6/uL (4.20-5.50); Red Cell Distribution Width 12.2 % (11.0-16.0); White Blood Count 7.6 X10*3/uL (4.8-10.8)
[2023-10-18] MEDS: Levothyroxine Sodium 50 MCG TABLET PO (06:37)
[2023-10-18 06:54] LABS: Anion Gap 11 (12-20); Blood Urea Nitrogen 22 mg/dL (9-16); Calcium 9.3 mg/dL (8.4-10.2); Carbon Dioxide 25 mmol/L (22-29); Chloride 100 mmol/L (96-108); Creatinine Clr Calc Pharmacy 31.2; Estimated Glomerular Filt Rate 49; Glucose Fasting 92 mg/dL (60-99); Potassium 4.2 mmol/L (3.3-5.1); Sodium 132 mmol/L (135-145)
[2023-10-18] MEDS: Omeprazole 20 MG CAPSULE.DR PO (08:16)
[2023-10-18] MEDS: cilostazoL 50 MG TABLET PO ×2 (10:18→21:33)
[2023-10-18] MEDS: Ascorbic Acid 500 MG TABLET PO (10:18)
[2023-10-18] MEDS: Aspirin Enteric Coated 81 MG TABLET.DR PO (10:19)
[2023-10-18] MEDS: Atorvastatin Calcium 80 MG TABLET PO (10:19)
[2023-10-18] MEDS: Valsartan 160 MG TABLET PO ×2 (10:19→21:35)
[2023-10-18] MEDS: Cholecalciferol (Vitamin D3) 25 MCG TABLET 50 MCG PO (10:19)
[2023-10-18] MEDS: 0.9 % Sodium Chloride Flush 3 ML SYRINGE IVFLUSH ×2 (10:31→17:53)
--- NOTE | 2023-10-18 10:37 | PM.PNCARD ---
Subjective Subjective Date of Service: 10/18/23 Principal diagnosis: Hypertensive uregency, Myocardial ischemia Review of Systems Constitutional: Reports no additional constitutional complaints Eyes: Reports no additional eye complaints Cardiovascular: Reports no additional cardiovascular complaints Musculoskeletal: Reports no additional musculoskeletal complaints Reports system reviewed and no additional complaints, except as documented Physical Exam Vital Signs: Last Vital Signs Temp 97.2 F 10/18/23 08:00 Pulse 73 10/18/23 08:00 Resp 20 10/18/23 08:00 BP 118/57 L 10/18/23 08:00 Pulse Ox 93 10/18/23 08:00 O2 Del Method Room Air 10/18/23 08:00 O2 Flow Rate 2 10/18/23 04:00 BMI result Body Mass Index 28.2 Const General: cooperative, comfortable, no acute distress, alert and awake Nutritional Appearance: overweight Orientation/consciousness: patient oriented x3 Neck Neck: Yes trachea midline, Yes supple and Yes no JVD Resp Effort & Inspection: normal respiratory effort Auscultation: clear to auscultation bilaterally Cardio Jugular venous distension: no JVD Palpation: normal PMI Rate: regular rate Rhythm: regular rhythm Heart sounds: S1 normal heart sound present, S2 normal heart sound present, no click, no gallops and Murmur heart sound present systolic Skin General skin exam: no rashes or lesions noted Neuro General: patient oriented x3 and no focal motor deficits Extrem General: Yes no clubbing, cyanosis or edema Objective Labs and Meds 10/18/23 06:14 10/18/23 06:14 Lab results: Laboratory Results - last 24 hr 10/18/23 06:14 WBC 7.6 RBC 4.14 L Hgb 12.5 Hct 36.2 L MCV 87.4 MCH 30.2 MCHC 34.5 RDW 12.2 Plt Count 176 MPV 10.9 Absolute Nucleated RBC 0.000 Nucleated RBC % (auto) 0.0 Sodium 132 L Potassium 4.2 Chloride 100 Carbon Dioxide 25 Anion Gap 11 L BUN 22 H Creatinine 1.05 Estim Creat Clear Calc 31.2 Estimated GFR 49 Fasting Glucose 92 Calcium 9.3 Imaging Radiologist's impression: Impressions Head CT 10/17/23 13:13 IMPRESSION: No acute findings. Mild generalized atrophy and nonspecific periventricular white matter disease. Progress Note: A&P Assessment and plan (1) Hypertensive urgency: Status: Acute Assessment and Plan: Hypertensive urgency lot of this driven by her stressful outlook and anxiety. This needs to be treated and she needs to improve her sleep pattern. We discussed about stress mitigation strategies. Would add amlodipine 2.5 mg at nighttime to assess with management of blood pressure. There is high likelihood of renal artery stenosis and if present will require vascular follow-up and most likely intervention renal artery to avoid recurrent hypertensive urgency. Hypertensive urgency leading to myocardial ischemia on presentation which is now improved with better control of the blood pressure. Importance of good blood pressure control was discussed. Would pursue outpatient testing. No evidence of clinical heart failure at this point time. Will sign of the case and follow as outpatient. Time Spent With Patient Time: Total time managing care of this patient today ____ minutes. Progress Note: Quality Stroke Does the patient have a stroke diagnosis?: No Procedures Date of Service Date of Service: 10/18/23
--- NOTE | 2023-10-18 10:39 | P.PNIM_ITS ---
Subjective Subjective Date of Service: 10/18/23 Interval History: hypertensive episode overnight Physical Exam 2 Vital Signs: Vital Signs: Last Vital Signs Temp 97.2 F 10/18/23 08:00 Pulse 73 10/18/23 08:00 Resp 20 10/18/23 08:00 BP 118/57 L 10/18/23 08:00 Pulse Ox 93 10/18/23 08:00 O2 Del Method Room Air 10/18/23 08:00 O2 Flow Rate 2 10/18/23 04:00 BMI result Body Mass Index 28.2 Const: General: cooperative, comfortable, no acute distress, alert, awake and anxious Nutritional Appearance: obese Orientation/consciousness: patient oriented x3 Limitations: no limitations HEENT: Head: Yes normocephalic and Yes atraumatic Neck: Neck: Yes trachea midline, Yes supple and Yes no JVD Carotids: bruit Resp: Effort & Inspection: normal respiratory effort Auscultation: clear to auscultation bilaterally Cardio: Jugular venous distension: no JVD Palpation: normal PMI Rate: r egular rate Rhythm: regular rhythm Heart sounds: S1 normal heart sound present, S2 normal heart sound present, no click, no gallops, Murmur heart sound present systolic early and Other heart sounds present (S4) GI: Auscultation: normal bowel sounds Skin: General skin exam: no rashes or lesions noted Neuro: General: patient oriented x3 and no focal motor deficits Extrem: General: Yes no clubbing, cyanosis or edema Psych: Appearance: grossly normal Affect: Anxious affect present Objective Data Active Medications Acetaminophen (Acetaminophen 325 Mg Tablet) 650 mg PO Q6H PRN PRN Reason: Pain, Mild (Pain Scale 1-3) Alprazolam (Alprazolam 0.25 Mg Tablet) 0.25 mg PO DAILY PRN PRN Reason: Anxiety Last Admin: 10/17/23 23:49 Dose: 0.25 mg Documented By: ÓSCAR Amlodipine Besylate (Amlodipine Besylate 2.5 Mg Tablet) 2.5 mg PO BEDTIME [facility]; Protocol Ascorbic Acid (Ascorbic Acid 500 Mg Tablet) 500 mg PO DAILY [facility] Last Admin: 10/18/23 10:18 Dose: 500 mg Documented By: LINSEY Aspirin (Aspirin Enteric Coated 81 Mg Tablet.) 81 mg PO DAILY [facility] Last Admin: 10/18/23 10:19 Dose: 81 mg Documented By: LINSEY Atorvastatin Calcium (Atorvastatin Calcium 80 Mg Tablet) 80 mg PO DAILY [facility] Last Admin: 10/18/23 10:19 Dose: 80 mg Documented By: LINSEY Cilostazol (Cilostazol 50 Mg Tablet) 50 mg PO BID [facility] Last Admin: 10/18/23 10:18 Dose: 50 mg Documented By: LINSEY Enoxaparin Sodium (Enoxaparin Sodium 30 Mg/0.3 Ml Syringe) 30 mg SUBCUT Q24H [facility] Last Admin: 10/17/23 20:25 Dose: 30 mg Documented By: DIYA Labetalol HCl (Labetalol Hcl 100 Mg Tablet) 100 mg PO BID [facility]; Protocol Levothyroxine Sodium (Levothyroxine Sodium 50 Mcg Tablet) 50 mcg PO DAILY@0600 [facility] Last Admin: 10/18/23 06:37 Dose: 50 mcg Documented By: DOROTHYLAMDonna Melatonin (Melatonin 3 Mg Tablet) 6 mg PO BEDTIME PRN PRN Reason: Insomnia Last Admin: 10/17/23 23:49 Dose: 6 mg Documented By: ÓSCAR Nitroglycerin (Nitroglycerin 0.4 Mg Tab.Subl) 0.4 mg SUBLINGUAL Q5MX3 PRN PRN Reason: Chest Pain Omeprazole (Omeprazole 20 Mg Capsule.Dr) 20 mg PO DAILY@0630 [facility] Last Admin: 10/18/23 08:16 Dose: 20 mg Documented By: ÓSCAR Ondansetron HCl (Ondansetron Hcl 4 Mg/2 Ml Vial) 4 mg IVPUSH Q8H PRN PRN Reason: Nausea and Vomiting Simethicone (Simethicone 80 Mg Tab.Chew) 80 mg PO QIDWMHS PRN PRN Reason: Gas Sodium Chloride (0.9 % Sodium Chloride Flush 3 Ml Syringe) 3 ml IVFLUSH QSHIFT [facility] Last Admin: 10/18/23 10:31 Dose: 3 ml Documented By: LINSEY Trazodone HCl (Trazodone Hcl 50 Mg Tablet) 50 mg PO BEDTIME PRN PRN Reason: Insomnia Last Admin: 10/16/23 23:41 Dose: 50 mg Documented By: ZULEIKA Valsartan (Valsartan 160 Mg Tablet) 160 mg PO BID [facility]; Protocol Last Admin: 10/18/23 10:19 Dose: 160 mg Documented By: LINSEY Vitamin D (Cholecalciferol (Vitamin D3) 25 Mcg Tablet) 50 mcg PO DAILY [facility] Last Admin: 10/18/23 10:19 Dose: 50 mcg Documented By: LINSEY Labs 10/18/23 06:14 10/18/23 06:14 Labs: Laboratory Results - last 24 hr 10/18/23 06:14 MCV 87.4 MCH 30.2 MCHC 34.5 RDW 12.2 Plt Count 176 MPV 10.9 Absolute Nucleated RBC 0.000 Nucleated RBC % (auto) 0.0 Anion Gap 11 L Estim Creat Clear Calc 31.2 Estimated GFR 49 Fasting Glucose 92 Calcium 9.3 Assessment and Plan (1) Hypertensive urgency: Status: Acute Plan 88F PMH htn, hld, copd, carotid stenosis, goiter presented with dizziness, found to be hypertensive and ekg changes Hypertensive urgency changed metoprolol to labetalol 100 mg b.i.d., continue valsartan 160 mg b.i.d., added amlodipine 2.5 mg for bedtime Follow-up renal ultrasound, vascular Mood disorder Restart Lexapro Dynamic EKG changes Troponin negative Underlying CAD seen on CTA Continue antiplatelet and statin Cardio appreciated Nocturnal hypoxia Sleep study DVT prophylaxis with Lovenox Full Code Reason for continued hospitalization: Optimizing blood pressure control Quality Stroke Does the patient have a stroke diagnosis?: No VTE Prior VTE?: No VTE Risk Level:: Medical - moderate - high VTE Device Contraindication: Treatment Not Indicated VTE Drug Contraindication: N/A - Med Ordered
[2023-10-18] MEDS: Escitalopram Oxalate 5 MG TABLET PO (11:50)
[2023-10-18] MEDS: Melatonin 3 MG TABLET 6 MG PO (21:32)
[2023-10-18] MEDS: amLODIPine Besylate 2.5 MG TABLET PO (21:33)
[2023-10-18] MEDS: Labetalol HCL 100 MG TABLET PO (21:34)
[2023-10-18] MEDS: ALPRAZolam 0.25 MG TABLET PO (21:36)
[2023-10-18] MEDS: Enoxaparin Sodium 30 MG/0.3 ML SYRINGE SUBCUT (21:36)
[2023-10-19] VITALS: BP 190/90; PULSE 104; RESP 16; TEMP 36.4; O2SAT 94
[2023-10-19 00:40] VITALS: BP 138/69
[2023-10-19] MEDS: Magnesium Hydrox/Alum Hydrox 30 ML ORAL.SUSP PO (00:40)
[2023-10-19 04:00] VITALS: BP 143/62; PULSE 93; RESP 16; TEMP 36.1; O2SAT 97
[2023-10-19] MEDS: Omeprazole 20 MG CAPSULE.DR PO (06:32)
[2023-10-19] MEDS: Levothyroxine Sodium 50 MCG TABLET PO (06:32)
[2023-10-19 07:34] VITALS: BP 126/61; PULSE 89; RESP 18; TEMP 36.2; O2SAT 92
[2023-10-19 07:36] LABS: Hematocrit 35.9 % (37.0-47.0); Hemoglobin 12.1 g/dl (12.0-16.0); Mean Corpuscular HGB Conc 33.7 g/dl (31.0-35.0); Mean Corpuscular Hemoglobin 30.1 pg (27.0-33.0); Mean Corpuscular Volume 89.3 fL (80.0-98.0); Mean Platelet Volume 10.7 fL (9.4-12.3); Platelet Count 171 X10*3/uL (160-400); Red Blood Count 4.02 X10*6/uL (4.20-5.50); Red Cell Distribution Width 12.2 % (11.0-16.0); White Blood Count 7.5 X10*3/uL (4.8-10.8)
[2023-10-19 07:57] LABS: Anion Gap 12 (12-20); Blood Urea Nitrogen 29 mg/dL (9-16); Calcium 9.2 mg/dL (8.4-10.2); Carbon Dioxide 27 mmol/L (22-29); Chloride 97 mmol/L (96-108); Creatinine Clr Calc Pharmacy 26.9; Estimated Glomerular Filt Rate 42; Glucose Fasting 110 mg/dL (60-99); Potassium 4.3 mmol/L (3.3-5.1); Sodium 132 mmol/L (135-145)
--- NOTE | 2023-10-19 08:55 | P.DS_ITS ---
DS: Providers Provider Date of Service: 10/19/23 Date of admission: 10/16/23 20:40 Date of discharge: 10/19/23 Primary care physician: Tk Lemus MD Consults: 10/16/23 21:38 Consult to Psychiatry Routine Consulting Provider: Psych Covering Reason for consultation: uncontrolled depression/anxiety 10/17/23 09:07 Consult to Cardiology Routine Consulting Provider: [facility] Reason for consultation: dynamic ST changes, CAD on CTA 10/18/23 07:30 Consult to Vascular Surgery Routine Consulting Provider: [facility] Reason for consultation: renal artery (and others) stenosis DS: Diagnosis Discharge Diagnosis (1) Hypertensive urgency: Status: Acute DS: Summary Hospital Course Hospital Course: from initial hpi: has been experiencing intermittent ?heartburn for the past month only partly alleviated by Prilosec. Denies chest pain or chest pressure. Patient last night went to bed in her normal state of health, then when she awoke this morning felt lightheaded, dizzy, and clammy with acid relfux at baseline. Called her daughter who came over and took blood pressure which was elevated at 185/100. Patient reports not normally keeping track of her BP at home. Also experienced some nausea and 1 episode of vomiting. Daughter notes she had to help pt walk due to weakness. had a similar incident 1 month ago where she also vomited, which is atypical for her. Denies any significant cough or shortness of breath. No orthopnea. No increased lower leg edema. No fever, chills, abdominal pain. Reports that her sleep and mood have been affected after her 2 years prior. has had very poor sleep since, sleeping approximately 1 hour at a time before waking up. Also reports increasing depression and anxiety. Has seen a therapist who started her on escitalopram, the patient reports stopped taking approximately 6 weeks ago, shortly before symptoms started. Patient also reports of 50 year pack history of smoking, quit 15 years ago. In the ED pt was tachycardic to 107, tachypneic to 28, and hypertensive up to 216/124, satting as low as 86% on RA. Labs were significant for BNP mildly elevated at 274, otherwise grossly unremarkable and at baseline for patient. No leukocytosis. Stable H&H. No significant electrolyte abnormalities. Renal and hepatic function WNL. Serial troponins WNL at 4.6, 4.8, and 11.9. CXR showed no acute abnormality of the chest. Chest CTA with no evidence of pulmonary emboli, but did show mild cardiomegaly with likely elevated right heart pressures, advanced emphysematous changes without focal consolidation or suspicious pulmonary nodules, aortic and mitral valve calcification with moderate to severe coronary artery calcifications, and significantly enlarged thyroid. Initial EKG demonstrated sinus rhythm with PACs but no significant ST elevations or depressions. Second EKG found sinus tachycardia with PACs and slight ST depressions in and T-wave abnormalities, and then normal sinus rhythm without significant ST elevations or depressions. Pt was treated with aspirin and nitroglycerin 1 inch patch. Pt will be admitted to the hospital for treatment and further evaluation of symptomatic hypertensive urgency hospital course: Patient was admitted for hypertensive urgency. Her metoprolol was changed to labetalol, she was continued on valsartan 160 mg b.i.d., amlodipine 2.5 mg at bedtime was added. Blood pressure became better controlled. Patient was noted to have dynamic EKG changes with negative troponin, underlying coronary disease seen on CTA, she was seen by Cardiology recommended continuing antiplatelet and statin therapy. Also recommended renal artery ultrasound to rule out renal artery stenosis, report is still pending although preliminary report appears positive, patient should follow up with vascular surgery. For mood disorder was restarted on Lexapro has anxiety likely significant contributing to patient's hypertensive urgency. Patient was noted to have transient nocturnal hypoxia, should follow-up outpatient for official sleep study (information provided). Time Attestation Discharge Coordination Time (in mins): 34 Quality: Safe Use of Opioids Does Pt have an Active Cancer Diagnosis on the Problem List?: No Quality: Stroke Does the patient have a stroke diagnosis?: No Physical Exam Vital Signs: Vital Signs: Last Vital Signs Temp 97.2 F 10/19/23 07:34 Pulse 89 10/19/23 07:34 Resp 18 10/19/23 07:34 BP 126/61 10/19/23 07:34 Pulse Ox 92 10/19/23 07:34 O2 Del Method Room Air 10/19/23 07:34 O2 Flow Rate 2 10/19/23 04:00 BMI result Body Mass Index 28.2 Const: General: cooperative, comfortable, no acute distress, alert, awake and anxious Nutritional Appearance: obese Orientation/consciousness: patient oriented x3 Limitations: no limitations HEENT: Head: Yes normocephalic and Yes atraumatic Neck: Neck: Yes trachea midline, Yes supple and Yes no JVD Carotids: bruit Resp: Effort & Inspection: normal respiratory effort Auscultation: clear to auscultation bilaterally Cardio: Jugular venous distension: no JVD Palpation: normal PMI Rate: regular rate Rhythm: regular rhythm Heart sounds: S1 normal heart sound present, S2 normal heart sound present, no click, no gallops, Murmur heart sound present systolic early and Other heart sounds present (S4) GI: Auscultation: normal bowel sounds Skin: General skin exam: no rashes or lesions noted Neuro: General: patient oriented x3 and no focal motor deficits Extrem: General: Yes no clubbing, cyanosis or edema Psych: Appearance: grossly normal Affect: Anxious affect present DS: Data Data Completed and Pending Labs on day of discharge: Laboratory Results - last 24 hr 10/19/23 07:25 WBC 7.5 RBC 4.02 L Hgb 12.1 Hct 35.9 L MCV 89.3 MCH 30.1 MCHC 33.7 RDW 12.2 Plt Count 171 MPV 10.7 Absolute Nucleated RBC 0.000 Nucleated RBC % (auto) 0.0 Sodium 132 L Potassium 4.3 Chloride 97 Carbon Dioxide 27 Anion Gap 12 BUN 29 H Creatinine 1.22 Estim Creat Clear Calc 26.9 Estimated GFR 42 Fasting Glucose 110 H Calcium 9.2 Discharge Plan Discharge Anticipated Discharge Date/Time: 10/19/23 08:53 Patient Disposition: Home, Self-Care Discharge Diagnosis: hypertensive urgency Referrals: Tk Lemus MD [Primary Care Provider] - 1 Week Ruben Conklin MD [Physician] - 1 Week Discharge Medications: New trazodone 50 mg Tablet 50 mg PO BEDTIME PRN (Reason: Insomnia) Qty: 90 0RF amlodipine 2.5 mg Tablet 2.5 mg PO BEDTIME Qty: 90 0RF Protocol: Hold for SBP< HOLD for SBP < : 90 labetalol 100 mg Tablet 100 mg PO BID Qty: 180 0RF Protocol: Hold for SBP/HR < HOLD for SBP < : 90 HOLD for HR < : 60 escitalopram oxalate 5 mg Tablet 5 mg PO DAILY Qty: 90 0RF Continued alprazolam 0.25 mg Tablet 0.25 mg PO DAILY PRN (Reason: Anxiety) omeprazole 20 mg Tablet,Delayed Release (Dr/Ec) 20 mg PO DAILY@0630 rosuvastatin 20 mg Tablet 20 mg PO DAILY aspirin [Adult Aspirin Regimen] 81 mg tablet,delayed release (DR/EC) 81 mg PO DAILY cholecalciferol (vitamin D3) 50 mcg (2,000 unit) capsule 50 mcg PO DAILY cilostazol 50 mg tablet 50 mg PO BID loratadine 10 mg capsule 10 mg PO DAILY PRN (Reason: allergy symptoms) levothyroxine [Synthroid] 50 mcg tablet 50 mcg PO DAILY@0600 valsartan 160 mg tablet 160 mg PO BID ascorbic acid (vitamin C) 500 mg capsule 500 mg PO DAILY Discontinued metoprolol tartrate 50 mg tablet 50 mg PO BID Discharge Orders: Discharge Order (Routine); Ordered 10/19/23 Ordered By: Matt Nix Diet: Advance to usual diet Activity on Discharge: As tolerated Stand Alone Forms: Patient Portal Discharge page Print Language: Pashto Care Plan Goals: recovery Health Concerns: hypertension, anxiety, vascular disease Plan of Treatment: med changes as prescribed, follow up with vascular surgery, follow up with ezra for sleep study Assessment: see above
[2023-10-19] MEDS: cilostazoL 50 MG TABLET PO (09:07)
[2023-10-19] MEDS: Atorvastatin Calcium 80 MG TABLET PO (09:07)
[2023-10-19] MEDS: Labetalol HCL 100 MG TABLET PO (09:07)
[2023-10-19] MEDS: Escitalopram Oxalate 5 MG TABLET PO (09:07)
[2023-10-19] MEDS: Aspirin Enteric Coated 81 MG TABLET.DR PO (09:07)
[2023-10-19] MEDS: Ascorbic Acid 500 MG TABLET PO (09:07)
[2023-10-19] MEDS: Valsartan 160 MG TABLET PO (09:07)
[2023-10-19] MEDS: Cholecalciferol (Vitamin D3) 25 MCG TABLET 50 MCG PO (09:07)
[2023-10-19] MEDS: 0.9 % Sodium Chloride Flush 3 ML SYRINGE IVFLUSH (09:07)
--- NOTE | 2023-10-19 09:08 | MHC.CM.PN ---
PT WILL DC HOME TODAY WITH NO SERVICES VIA PRIVATE TRANSPORT
[2023-10-19 10:37] VITALS: BP 106/53; PULSE 88; RESP 17; TEMP 36.2; O2SAT 94
== END 2023-10-19 13:15 | disposition home or self-care (01) | DRG 305 ==
LOC: HO.ED 20:54 → HO.EDOVER 21:06 → HO.IMC 10-17 07:25 → HO.EDOVER 10-17 07:43 → HO.IMC 10-17 19:35
PROVIDERS: Physician Assistant Medical; Student in an Organized Health Care Education/Training Program; Admitting Provider Student in an Organized Health Care Education/Training Program; Emergency Provider Emergency Medicine; PCP Internal Medicine; Visit Provider Internal Medicine
DX: I16.0 Hypertensive urgency (principal); F41.9 Anxiety disorder, unspecified; F32.A Depression, unspecified; I10 Essential (primary) hypertension; E78.5 Hyperlipidemia, unspecified; I25.10 Atherosclerotic heart disease of native coronary artery without angina pectoris; J43.9 Emphysema, unspecified; G47.00 Insomnia, unspecified; Z79.82 Long term (current) use of aspirin; Z79.890 Hormone replacement therapy; Z79.899 Other long term (current) drug therapy
CPT/HCPCS: 36415; 70450; 71046; 71275; 76775; 80048; 80053; 81001; 83690; 83735; 83880; 84443; 84484; 85025; 85027; 85730; 86140; 93005; 93306; 93975; 99285; J1650; Q9957; Q9967

== ENCOUNTER → 2023-10-16 12:57 | Outpatient (BNV) | payer MEDICARE, OTHER, SELFPAY | PROVIDERS: Admitting Provider Student in an Organized Health Care Education/Training Program; Emergency Provider Emergency Medicine; PCP Internal Medicine; Visit Provider Internal Medicine Cardiovascular Disease | DX: R07.9 Chest pain, unspecified (principal); R00.0 Tachycardia, unspecified; R42 Dizziness and giddiness; I49.1 Atrial premature depolarization; R94.31 Abnormal electrocardiogram [ECG] [EKG] | CPT/HCPCS: 93010 ==

== ENCOUNTER 2023-10-16 20:40 | Outpatient (BNV) | payer MEDICARE, OTHER, SELFPAY | END 2023-10-17 07:00 | PROVIDERS: Admitting Provider Student in an Organized Health Care Education/Training Program; Emergency Provider Emergency Medicine; PCP Internal Medicine; Visit Provider Internal Medicine Cardiovascular Disease | DX: I34.2 Nonrheumatic mitral (valve) stenosis (principal); I34.0 Nonrheumatic mitral (valve) insufficiency; I34.81 Nonrheumatic mitral (valve) annulus calcification; I34.89 Other nonrheumatic mitral valve disorders | CPT/HCPCS: 93306 ==

== ENCOUNTER → 2023-10-16 20:40 | Outpatient (BNV) | payer MEDICARE, OTHER, SELFPAY | PROVIDERS: Admitting Provider Student in an Organized Health Care Education/Training Program; Emergency Provider Emergency Medicine; PCP Internal Medicine; Visit Provider Internal Medicine Cardiovascular Disease | DX: I16.0 Hypertensive urgency (principal) | CPT/HCPCS: 99222; 99233 ==

== ENCOUNTER → 2023-10-16 20:40 | Outpatient (BNV) | payer MEDICARE, OTHER, SELFPAY | PROVIDERS: Admitting Provider Student in an Organized Health Care Education/Training Program; Emergency Provider Emergency Medicine; PCP Internal Medicine; Visit Provider Student in an Organized Health Care Education/Training Program | DX: I16.0 Hypertensive urgency (principal) | CPT/HCPCS: 99222; 99232; 99239 ==

== ENCOUNTER 2023-10-23 21:40 | Inpatient (IN) | payer MEDICARE, OTHER, SELFPAY ==
--- NOTE | ~2023-10-23 | XR_ITS ---
EXAMINATION: XR CHEST CLINICAL INFORMATION: Shortness of breath. COMPARISON: Chest radiograph dated 10/16/2023. TECHNIQUE: Frontal view of the chest was obtained. FINDINGS: The cardiac silhouette remains stable in size. There are increased interstitial markings throughout both lungs reflecting underlying chronic lung disease. There is a new left lower lobe opacity which could represent developing pneumonia. There may be an opacity at the right lung base that was not present on the prior examination as well. There is no large pleural effusion. No pneumothorax. No acute osseous abnormality. XR/XR chest 1V IMPRESSION: Bibasilar opacities, new from the prior study for which developing pneumonia is not excluded. There is advanced emphysema.
--- NOTE | ~2023-10-23 | US_ITS ---
EXAMINATION: US VENOUS ULTRASOUND WITH DOPPLER LOWER EXTREMITY, BILATERAL CLINICAL INFORMATION: Swelling, rule out DVT COMPARISON: None available. TECHNIQUE: Ultrasound of the deep veins is performed from the hip to the calf with compression sonography and color and pulse Doppler assessment. Spectral analysis with color-flow imaging is performed. FINDINGS: RIGHT: There is normal venous compression and respiratory variation and augmented flow. The visualized common femoral vein, superficial femoral vein, profunda femoral vein, popliteal vein, and the trifurcation region shows no evidence of deep venous thrombosis. There is no significant popliteal fossa cyst. LEFT: There is normal venous compression and respiratory variation and augmented flow. The visualized common femoral vein, superficial femoral vein, profunda femoral vein, popliteal vein, and the trifurcation region shows no evidence of deep venous thrombosis. There is no significant popliteal fossa cyst. If the patient's symptoms persist, followup ultrasound in 5 days 7 days might be of value to exclude proximal propagation from a non-visualized calf vein. US/US venous duplex LE BI IMPRESSION: No DVT demonstrated in the bilateral lower extremity.
--- NOTE | ~2023-10-23 | XR_ITS ---
EXAMINATION: XR CHEST CLINICAL INFORMATION: Follow up pneumonia. COMPARISON: Chest radiograph 10/23/2023. TECHNIQUE: Frontal view of the chest was obtained. FINDINGS: Decreased bibasilar airspace opacities with some residual asymmetric densities in the left lower lobe. Decreased diffuse interstitial thickening. No new focal airspace densities. Similar to slightly decreased trace bilateral pleural effusions. No pneumothorax. Stable prominence of the cardiomediastinal silhouette. Moderate atherosclerotic disease in the aortic arch. No acute osseous findings. Slice upper abdomen is within normal limits. XR/XR chest 1V IMPRESSION: 1. Improved pulmonary aeration with decreased bibasilar airspace opacities and decreased interstitial thickening. 2. Similar to slightly decreased trace bilateral pleural effusions. 3. No new focal airspace densities.
--- NOTE | 2023-10-23 21:40 | ECG_ITS ---
Test Reason : CHEST PAIN Blood Pressure : / mmHG Vent. Rate : 107 BPM Atrial Rate : 107 BPM P-R Int : 180 ms QRS Dur : 100 ms QT Int : 328 ms P-R-T Axes : 063 057 121 degrees QTc Int : 437 ms Sinus tachycardia Left ventricular hypertrophy with repolarization abnormality ( Santy product ) Abnormal ECG When compared with ECG of 16-OCT-2023 17:48, QRS duration has increased ST now depressed in Lateral leads Referred By: Generic ED Physician Electronically Signed By:NATALI MEZA
[2023-10-23 21:53] VITALS: BP 175/89; PULSE 120; RESP 24; TEMP 36.5; O2SAT 80; BMI 28.3
[2023-10-23 21:55] LABS: MANUAL DIFF FLAG NO
[2023-10-23 21:56] LABS: Basophils Percent Auto 0.3 % (0-2); Eosinophils Absolute Auto 0.4 X10*3/uL (0.0-0.4); Eosinophils Percent Auto 3.7 % (0-4); Hematocrit 37.5 % (37.0-47.0); Imm Gran Abs Auto 0.04 X10*3/uL (0.00-0.03); Imm Gran Pct Auto 0.3 % (0.0-0.4); Lymphocytes Absolute Auto 0.7 X10*3/uL (1.2-4.9); Lymphocytes Percent Auto 6.5 % (20-40); Mean Corpuscular HGB Conc 34.7 g/dl (31.0-35.0); Mean Corpuscular Volume 86.6 fL (80.0-98.0); Mean Platelet Volume 10.2 fL (9.4-12.3); Monocytes Absolute Auto 0.9 X10*3/uL (0.1-1.2); Monocytes Percent Auto 7.5 % (2-11); Neutrophils Absolute Auto 9.3 x10*3/uL (2.0-8.3); Neutrophils Percent Auto 81.7 % (45-73); Platelet Count 225 X10*3/uL (160-400); Red Blood Count 4.33 X10*6/uL (4.20-5.50); Red Cell Distribution Width 12.1 % (11.0-16.0); White Blood Count 11.4 X10*3/uL (4.8-10.8)
[2023-10-23 22:00] VITALS: BP 188/85; PULSE 96; RESP 23; O2SAT 100
--- NOTE | 2023-10-23 22:03 | ED_ITS ---
HPI - Chest Pain General Chief Complaint: Chest Pain Stated Complaint: chest pain Time Seen by Provider: 10/23/23 22:00 Source: patient and family Mode of arrival: wheelchair Limitations: no limitations History of Present Illness ED Provider: Dr. Katelynn Patterson HPI narrative: Patient comes to the emergency room complaining GERD like sensation and intermittent chest discomfort, shortness of breath, increased lower extremity edema and increased weakness for the last 2 days. Of note, patient was discharged from this hospital 4 days ago for hypertensive urgency. And currently taking labetalol, valsartan, amlodipine. In her previous visit, patient had dynamic EKG changes with negative troponin, negative CTA patient was told that she needs a renal artery ultrasound to rule out renal artery stenosis, still pending. Had a transthoracic echocardiogram showing a normal left ventricle size and systolic function, ejection fraction 60-65% Related Data Home Medications ?Medication ?Instructions ?Recorded ?Confirmed aspirin 81 mg tablet,delayed 81 mg PO DAILY 04/20/20 10/16/23 release (Adult Aspirin Regimen) cholecalciferol (vitamin D3) 50 50 mcg PO DAILY 04/20/20 10/16/23 mcg (2,000 unit) capsule cilostazol 50 mg tablet 50 mg PO BID 04/20/20 10/16/23 levothyroxine 50 mcg tablet 50 mcg PO DAILY@0600 04/20/20 10/16/23 (Synthroid) loratadine 10 mg capsule 10 mg PO DAILY PRN allergy symptoms 04/20/20 10/16/23 valsartan 160 mg tablet 160 mg PO BID 04/20/20 10/16/23 ascorbic acid (vitamin C) 500 mg 500 mg PO DAILY 06/11/22 10/16/23 capsule alprazolam 0.25 mg tablet 0.25 mg PO DAILY PRN Anxiety 10/16/23 10/16/23 omeprazole 20 mg tablet,delayed 20 mg PO DAILY@0630 10/16/23 10/16/23 release rosuvastatin 20 mg tablet 20 mg PO DAILY 10/16/23 10/16/23 Previous Rx's ?Medication ?Instructions ?Recorded amlodipine 2.5 mg tablet 2.5 mg PO BEDTIME #90 tabs 10/19/23 escitalopram oxalate 5 mg tablet 5 mg PO DAILY #90 tabs 10/19/23 labetalol 100 mg tablet 100 mg PO BID #180 tabs 10/19/23 trazodone 50 mg tablet 50 mg PO BEDTIME PRN Insomnia #90 10/19/23 tabs Allergies Allergy/AdvReac Type Severity Reaction Status Date / Time erythromycin base Allergy Intermediate Itching Verified 10/23/23 21:56 [ERYTHROMYCIN BASE] lisinopril Allergy Intermediate throat Verified 10/23/23 21:56 itchy simvastatin [From Zocor] AdvReac Severe Rash Verified 10/23/23 21:56 Review of Systems 2 Review of Systems: Constitutional : No Weight loss, No Fever, No Chills, No Night Sweats, complaining of fatigue, feeling very tired ENT/Mouth : No Hearing loss, No Ear Pain, No Nasal Congestion, No Sinus Pain, No Hoarseness, No sore throat, No Rhinorrhea, No Swallowing Difficulty Eyes: No Eye Pain, No Swelling, No Redness, No Foreign Body, No Discharge, No Vision Changes Cardiovascular : Complaining of intermittent chest pain, shortness of breath at rest, complaining of lower extremity edema Respiratory : No Cough, No Sputum, No Wheezing, No Smoke Exposure, No Dyspnea Gastrointestinal : No Nausea, No Vomiting, No Diarrhea, No Constipation, No abdominal Pain, No Hematochezia, No Melena Genitourinary : no irregular bleeding, No Dysuria, No Urinary Frequency, No Hematuria, No Urinary Incontinence, No Urgency, No Flank Pain, No Urinary Flow Changes, No Hesitancy Musculoskeletal : No joint pain, No Myalgias, No Joint Swelling Skin : No Skin Lesions, No rash Neuro : No Weakness, No Numbness, No Paresthesias, No Loss of Consciousness, No Dizziness, No Headache Psych : No Anxiety/Panic, No Depression, No SI/HI/AH/VH, No Social Issues, Heme/Lymph: No Bruising, No Bleeding,No Lymphadenopathy Endocrine : No Polyuria, No Polydipsia, No Temperature Intolerance PMFSH Past Medical History Medical History Restrictive lung disease COVID-19 vaccine series completed Heartburn Hypothyroid PVD (peripheral vascular disease) HTN (hypertension) Cough Allergic rhinitis Surgical History Hx of tonsillectomy Hx of excision of mass H/O colonoscopy Social History Social History Household Members: None Housing: House Are you a primary home health care worker to a significant other at home: Yes (- disabled ) Do you presently have visiting nurse or other home services: No Alcohol intake: never Comment: Medicated with Tylenol 650 mg PO Patient Tobacco Use Status: Former Tobacco user Tobacco use type: Cigarette Cigarettes Per Day: 10 Smoked in Last 30 Days: No Advance Directives: No Advance Directives Information Provided: Yes Do you have a plan to hurt others: No Plan service: No 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 Oriented X3. Seems fatigued Eyes: Pupils equal, round and reactive to light. ENT: Pharynx normal. Neck: Normal inspection. Neck supple. No lymph nodes noted. No crepitus CVS: Normal heart rate and rhythm. Pulses normal. Normal S1 and S2 Respiratory: Bilateral rales, no crackles or wheezing, good air movement, oxygen saturation 65% on room air Abdomen: Soft and nontender. No rigidity. No distention. Skin: Skin clammy, slightly cyanotic Extremities: +2 pitting edema bilaterally No Lacerations. No Rash Neuro: Oriented X 3. No motor deficit. No sensory deficit. Moving all extremities. No slurred speech. CN 2 through 12 grossly intact Psych: calm, cooperative, normal affect Course Course Course Narrative: -his oxygen saturation is 65 % on room air. Patient was given a non-rebreather, oxygen improve within a few seconds to 100%. -all of patient's labs and imaging pending. Medications Administered Generic Name Dose Route Start Last Admin Trade Name Freq PRN Reason Stop Dose Admin Vancomycin HCl 1,500 mg/ 500 mls @ 333.333 mls/hr 10/23/23 22:54 10/23/23 23:46 Sodium Chloride IV 10/24/23 00:23 333.33 mls/hr ONCE ONE Administration Discontinued Medications Generic Name Dose Route Start Last Admin Trade Name Anabella PRN Reason Stop Dose Admin Alprazolam 0.25 mg 10/23/23 22:59 10/23/23 23:09 Alprazolam 0.25 Mg Tablet PO 10/23/23 23:00 0.25 mg ONCE ONE Administration Furosemide 60 mg 10/23/23 22:40 10/23/23 22:54 Furosemide 100 Mg/10 Ml Vial IVPUSH 10/23/23 22:41 60 mg ONCE ONE Administration Protocol Piperacillin Sod/Tazobactam 50 mls @ 100 mls/hr 10/23/23 22:54 10/23/23 23:39 Sod 3.375 gm/ Sodium Chloride IV 10/23/23 23:23 Infused ONCE ONE Infusion Sodium Chloride 130 mls @ 999 mls/hr 10/23/23 22:54 10/23/23 23:09 Ns IVCONT 10/23/23 23:01 130 mls/hr .Q8M ONE Administration Medical Decision Making Medical Decision Making MDM Narrative: -my interpretation of EKG: Sinus tachycardia, heart rate 107, ST segment depressions in leads II, AVF, V5, V6. QTC 455 -compare EKGs to previous visits, patient has similar looking EKG on 10/16/2023 secondary to hypertensive urgency. After blood pressure improved on the previous visit, EKG return to yearly normal EKG -my interpretation of labs: Hematology 11.4, likely reactive leukocytosis. Patient's chemistry shows a sodium of 121 -at this time, 22:53, radiology report shows bilateral opacities new from previous x-rays, pneumonia is a possibility. -I discussed the patient with Dr. Albert, at this time, we will not start heparin. We will wait for the 2nd set of troponin. -patient was given an IV bolus of fluids of 130 mL, was giving IV antibiotics. Given that the patient was discharged from the hospital, she was given vancomycin and Zosyn. At this time, we will not give 30 mL/kilogram of IV fluids since patient is hyponatremic and puts her at high risk of osmotic demyelination syndrome -I considered getting a CT scan to rule out pulmonary embolism. However, patient can not lie flat, she can only last a few seconds before feeling short of breath and oxygen saturation dropping. Last week on October 15, patient had a CTA, no PE -patient complaining of feeling very anxious, patient takes Xanax at home -patient's oxygen saturation drops to 85% on 2 L, patient's O2 was increased to 5 L, saturating now 92% -patient's blood pressure on the higher side, no fever, sepsis is not suspected at this time, 23:59, with cultures and lactic acid pending. Patient has already been covered with antibiotics. Differential Diagnosis Differential Diagnoses: The differential diagnosis associated with the presentation includes (Pneumonia, CHF, COVID, pulmonary edema) Admission/Observation Consideration of admission/observation: Escalation of care including admission/observation considered Consult Healthcare Provider Management of the patient was discussed with: Hospitalist and Store Consultant Lab Data MDM Lab Attestation statement: I reviewed the patient's lab results. 10/23/23 21:50 10/23/23 21:50 Labs: Lab Results 10/23/23 10/23/23 10/23/23 Range/Units 21:50 22:18 22:29 WBC 11.4 H (4.8-10.8) X10*3/uL RBC 4.33 (4.20-5.50) X10*6/uL Hgb 13.0 (12.0-16.0) g/dl Hct 37.5 (37.0-47.0) % MCV 86.6 (80.0-98.0) fL MCH 30.0 (27.0-33.0) pg MCHC 34.7 (31.0-35.0) g/dl RDW 12.1 (11.0-16.0) % Plt Count 225 D (160-400) X10*3/uL MPV 10.2 (9.4-12.3) fL Immature Gran % (Auto) 0.3 (0.0-0.4) % Neut % (Auto) 81.7 H (45-73) % Lymph % (Auto) 6.5 L (20-40) % [place] % (Auto) 7.5 (2-11) % Eos % (Auto) 3.7 (0-4) % Baso % (Auto) 0.3 (0-2) % Lymph # (Auto) 0.7 L (1.2-4.9) X10*3/uL [place] # (Auto) 0.9 (0.1-1.2) X10*3/uL Eos # (Auto) 0.4 (0.0-0.4) X10*3/uL Baso # (Auto) 0.0 (0.0-0.2) X10*3/uL Abs Immat Gran (auto) 0.04 H (0.00-0.03) X10*3/uL Absolute Neuts (auto) 9.3 H (2.0-8.3) x10*3/uL Absolute Nucleated RBC 0.000 (0.0-0.012) X10*3/uL Nucleated RBC % (auto) 0.0 (0.0-0.2) /100WBC VBG pH 7.31 L (7.32-7.43) VBG pCO2 59 mmHg VBG pO2 37 mmHg VBG HCO3 30 H (22-26) mmol/L VBG O2 Saturation 48.0 % VBG Base Excess 2.6 mmol/L Sodium 121 L (135-145) mmol/L Potassium 5.2 H D (3.3-5.1) mmol/L Chloride 86 L (96-108) mmol/L Carbon Dioxide 26 (22-29) mmol/L Anion Gap 14 (12-20) BUN 33 H (9-16) mg/dL Creatinine 1.40 (0.5-1.4) mg/dL Estim Creat Clear Calc 22.4 Estimated GFR 35 Random Glucose 148 H (60-115) mg/dL Calcium 9.6 (8.4-10.2) mg/dL Troponin I High Sens 47.5 H D (<3.5-17.0) ng/L B-Natriuretic Peptide 204 H (<100) pg/mL Influenza Type A (PCR) NEGATIVE (Negative) Influenza Type B (PCR) NEGATIVE (Negative) RSV RNA Qual (PCR) NEGATIVE (Negative) SARS-CoV-2 RNA (RT-PCR) NEGATIVE (Negative) Independent Interpretation I performed an independent interpretation of an: Plain X-Ray (My interpretation of x-ray: Chronic changes, question possible bilateral infiltrates? Possible small pleural effusion?) Radiology Impression Discussion of test interpretation with radiology: I have reviewed the radiologist's reading. Radiologist Impression: The cardiac silhouette remains stable in size. There are increased interstitial markings throughout both lungs reflecting underlying chronic lung disease. There is a new left lower lobe opacity which could represent developing pneumonia. There may be an opacity at the right lung base that was not present on the prior examination as well. There is no large pleural effusion. No pneumothorax. No acute osseous abnormality. XR/XR chest 1V IMPRESSION: Bibasilar opacities, new from the prior study for which developing pneumonia is not excluded. There is advanced emphysema. Independent Historian Clinical information obtained from an independent historian. History obtained from or confirmed by: Other (Yesi) External Record Review External record reviewed: Inpatient record Critical Care Time Critical Care Time Critical Care Time: Yes Total Critical Care Time: 75 Attestation: I have personally provided critical care time. Time includes review of lab data, radiology results, discussion with consultants, and monitoring for potential decompensation. Intervention performed as documented. Discharge Plan Discharge Clinical Impression: Pneumonia, Acute hyponatremia Patient Disposition: Admitted As Inpatient Print Language: Burundian
[2023-10-23 22:11] LABS: Anion Gap 14 (12-20); Blood Urea Nitrogen 33 mg/dL (9-16); Calcium 9.6 mg/dL (8.4-10.2); Carbon Dioxide 26 mmol/L (22-29); Chloride 86 mmol/L (96-108); Creatinine Clr Calc Pharmacy 22.4; Estimated Glomerular Filt Rate 35; Glucose Random 148 mg/dL (60-115); Potassium 5.2 mmol/L (3.3-5.1); Sodium 121 mmol/L (135-145)
--- NOTE | 2023-10-23 22:14 | MHC.EDTECH ---
pt came in with an O2 reading of 63%. Provider ordered pt to be put on a nonrebreather. Pt stating 100%.
[2023-10-23 22:21] LABS: Troponin-I High Sensitivity 47.5 ng/L (<3.5-17.0)
[2023-10-23 22:33] LABS: B Type Natriuretic Peptide 204 pg/mL (<100)
[2023-10-23 22:35] LABS: Venous Blood Gas Refer to POC result
[2023-10-23 22:36] LABS: VBG Base Excess 2.6 mmol/L; VBG HCO3 30 mmol/L (22-26); VBG pCO2 59 mmHg; VBG pH 7.31 (7.32-7.43); VBG pO2 37 mmHg
[2023-10-23] MEDS: Furosemide 100 MG/10 ML VIAL 60 MG IVPUSH (22:54)
[2023-10-23 23:00] LABS: Influenza A PCR NEGATIVE (Negative); Influenza B PCR NEGATIVE (Negative); Resp Syncy Virus RNA Qual PCR NEGATIVE (Negative); SARS COV2 PCR INHOUSE NEGATIVE (Negative)
[2023-10-23] MEDS: ALPRAZolam 0.25 MG TABLET PO (23:09)
[2023-10-23] MEDS: Piperacillin Sodium/Tazobactam 3.375 GM in 0.9 % Sodium Chloride 50 ML IV (23:09)
[2023-10-23] MEDS: vancomycin HCL 1,500 MG in 0.9 % Sodium Chloride 500 ML 333.33 MG IV (23:46)
[2023-10-23 23:57] VITALS: BP 141/76; PULSE 90; RESP 18; O2SAT 97
[2023-10-24] VITALS (10 sets, daily range): BP systolic 105–144; BP diastolic 49–81; PULSE 82–111; RESP 12–20; TEMP 36.5–37; O2SAT 90–100; BMI 34.3
--- NOTE | 2023-10-24 | ECG_ITS ---
Test Reason : REPEAT Blood Pressure : / mmHG Vent. Rate : 091 BPM Atrial Rate : 091 BPM P-R Int : 182 ms QRS Dur : 090 ms QT Int : 372 ms P-R-T Axes : 000 -12 162 degrees QTc Int : 457 ms Normal sinus rhythm Minimal voltage criteria for LVH, may be normal variant ( Santy product ) Nonspecific T wave abnormality Abnormal ECG When compared with ECG of 23-OCT-2023 21:41, Questionable change in QRS axis ST no longer depressed in Lateral leads Referred By: Lucho Wise Electronically Signed By:NATALI MEZA
--- NOTE | 2023-10-24 | ECG_ITS ---
Test Reason : Troponemia Blood Pressure : / mmHG Vent. Rate : 097 BPM Atrial Rate : 097 BPM P-R Int : 148 ms QRS Dur : 082 ms QT Int : 356 ms P-R-T Axes : 072 033 079 degrees QTc Int : 452 ms Normal sinus rhythm Nonspecific T wave abnormality Abnormal ECG When compared with ECG of 24-OCT-2023 01:44, Nonspecific T wave abnormality no longer evident in Inferior leads Referred By: Carter Merrill Electronically Signed By:NATALI MEZA
[2023-10-24 00:44] LABS: Lactic Acid 0.9 mmol/L (0.5-2.0)
--- NOTE | 2023-10-24 01:10 | P.HPHOSP_ITS ---
History of Present Illness Date of Service: 10/24/23 Attending physician on admission: Lucho Wise Chief Complaint: Chest pain Effie Aleman is a very pleasant 88 years old woman with past medical history significant for restrictive lung disease, pulmonary emphysema, hypothyroidism, HFpEF and hypertension was brought to the emergency department complaining of worsening retrosternal chest pain and some shortness on breath. Patient did not report wheezing, cough, fever or chills. She complains of mild edema to the lower extremities. Patient's daughter was at bedside and contributed with the HPI. She was recently admitted to the hospital with diagnosis of hypertensive urgency. Daughter mentioned that since the patient's seems very somnolent and weak. Daughter also mentioned that the patient snores most of time. Patient has been taking Xanax at home. Patient denied gastrointestinal or genitourinary changes. She is a former tobacco smoker and smoked for 50 years. Denied alcohol abuse or illicit drug use. In the ED, the patient was found to have low O2 sats, 80% and was placed on 4L/min (we decreased to 2L/min to avoid CO2 retention). She also was found to have tachypnea and tachycardia. Temperature is normal. Blood workup is remarkable for mild leukocytosis 11.4. There is no lactic acidosis. Hemoglobin and platelets are normal. VBG showed low pH of 7.31 and PCO2 59. There is hyponatremia 121, hyperkalemia of 5.2 and glucose 148. Troponin is 47.5 and BNP 204. CXR showed bilateral basilar opacities -pneumonia is not excluded edema. ECG showed LVH changes and sinus tachycardia (HR 107), ST elevation in lead III and ST depression in lateral leads. TTE (10/17/2023): EF 60-65%, mild LVH, impaired relaxation filling pattern, mild aortic stenosis, [id number] mitral regurgitation + stenosis, severe elevated right ventricular systolic pressure. ED tx furosemide 60 mg IV, vancomycin 1.5 g IV, Zosyn 3.375 g, NS 130 ml Review of Systems 2 Review of Systems: All 12 systems were reviewed and normal except as noted in HPI. 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 (- disabled ) Do you presently have visiting nurse or other home services: No Alcohol intake: never Comment: Medicated with Tylenol 650 mg PO Patient Tobacco Use Status: Former Tobacco user Tobacco use type: Cigarette Cigarettes Per Day: 10 Smoked in Last 30 Days: No Advance Directives: No Advance Directives Information Provided: Yes Do you have a plan to hurt others: No Plan service: No Current occupational status: 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 Meds Allergies Allergy/AdvReac Type Severity Reaction Status Date / Time erythromycin base Allergy Intermediate Itching Verified 10/23/23 21:56 [ERYTHROMYCIN BASE] lisinopril Allergy Intermediate throat Verified 10/23/23 21:56 itchy simvastatin [From Zocor] AdvReac Severe Rash Verified 10/23/23 21:56 Active Medications: Current Medications Acetaminophen (Acetaminophen 325 Mg Tablet) 975 mg PO Q6H PRN PRN Reason: mild pain, headache or fever Heparin Sodium (Porcine) (Heparin Sodium,Porcine 5,000 Unit/Ml Vial) 5,000 unit SUBCUT Q12H [facility] Sodium Chloride (0.9 % Sodium Chloride Flush 3 Ml Syringe) 3 ml IVFLUSH QSHIFT [facility] Home Medications ?Medication ?Instructions ?Recorded ?Confirmed ?Last Taken ?Type aspirin 81 mg tablet,delayed 81 mg PO DAILY 04/20/20 10/16/23 10/15/23 History release (Adult Aspirin Regimen) cholecalciferol (vitamin D3) 50 50 mcg PO DAILY 04/20/20 10/16/23 10/15/23 History mcg (2,000 unit) capsule cilostazol 50 mg tablet 50 mg PO BID 04/20/20 10/16/23 10/15/23 History levothyroxine 50 mcg tablet 50 mcg PO DAILY@0600 04/20/20 10/16/23 10/15/23 History (Synthroid) loratadine 10 mg capsule 10 mg PO DAILY PRN allergy symptoms 12/02/2810/16/23 10/15/23 History valsartan 160 mg tablet 160 mg PO BID 04/20/20 10/16/23 10/15/23 History ascorbic acid (vitamin C) 500 mg 500 mg PO DAILY 06/11/22 10/16/23 10/15/23 History capsule alprazolam 0.25 mg tablet 0.25 mg PO DAILY PRN Anxiety 10/16/23 10/16/23 10/15/23 History omeprazole 20 mg tablet,delayed 20 mg PO DAILY@0630 10/16/23 10/16/23 10/15/23 History release rosuvastatin 20 mg tablet 20 mg PO DAILY 10/16/23 10/16/23 10/15/23 History Physical Exam 2 Vital Signs and Narrative: Vital Signs: Last Vital Signs Temp 97.7 F 10/23/23 21:53 Pulse 90 10/23/23 23:57 Resp 18 10/23/23 23:57 BP 141/76 H 10/23/23 23:57 Pulse Ox 97 10/23/23 23:57 O2 Del Method Nasal Cannula 10/23/23 23:57 O2 Flow Rate 4 10/23/23 23:57 BMI result Body Mass Index 28.3 Constitutional - Somnolent but awake easily. No apparent distress. Nasal cannula in place. Very pleasant. Cooperative. HEENT - Pupils equally round. Normal sclerae. Heart - S1S2, RRR (+) murmurs. Lungs - Normal lung expansion, Normal respiratory effort, No respiratory distress. Tachypnea. Bibasilar crackles. Abdomen - NT / ND; +BS; No rebound or guarding Extremities - Mild pitting edema to the lower extremities. Skin - Warm/Dry Neurological - Somnolent however, oriented X3. No focal grossly noted. Normal speech. Psychological - Depressed affect Results Labs 10/23/23 21:50 10/23/23 21:50 Labs: Laboratory Results - last 24 hr 10/23/23 10/23/23 10/23/23 21:50 22:18 22:29 MCV 86.6 MCH 30.0 MCHC 34.7 RDW 12.1 Plt Count 225 D MPV 10.2 Immature Gran % (Auto) 0.3 Neut % (Auto) 81.7 H Lymph % (Auto) 6.5 L [place] % (Auto) 7.5 Eos % (Auto) 3.7 Baso % (Auto) 0.3 Lymph # (Auto) 0.7 L [place] # (Auto) 0.9 Eos # (Auto) 0.4 Baso # (Auto) 0.0 Abs Immat Gran (auto) 0.04 H Absolute Neuts (auto) 9.3 H Absolute Nucleated RBC 0.000 Nucleated RBC % (auto) 0.0 VBG pH 7.31 L VBG pCO2 59 VBG pO2 37 VBG HCO3 30 H VBG O2 Saturation 48.0 VBG Base Excess 2.6 Anion Gap 14 Estim Creat Clear Calc 22.4 Estimated GFR 35 Random Glucose 148 H Lactic Acid Calcium 9.6 Troponin I High Sens 47.5 H D B-Natriuretic Peptide 204 H Influenza Type A (PCR) NEGATIVE Influenza Type B (PCR) NEGATIVE RSV RNA Qual (PCR) NEGATIVE SARS-CoV-2 RNA (RT-PCR) NEGATIVE 10/24/23 00:20 MCV MCH MCHC RDW Plt Count MPV Immature Gran % (Auto) Neut % (Auto) Lymph % (Auto) Carter % (Auto) Eos % (Auto) Baso % (Auto) Lymph # (Auto) Carter # (Auto) Eos # (Auto) Baso # (Auto) Abs Immat Gran (auto) Absolute Neuts (auto) Absolute Nucleated RBC Nucleated RBC % (auto) VBG pH VBG pCO2 VBG pO2 VBG HCO3 VBG O2 Saturation VBG Base Excess Anion Gap Estim Creat Clear Calc Estimated GFR Random Glucose Lactic Acid 0.9 Calcium Troponin I High Sens B-Natriuretic Peptide Influenza Type A (PCR) Influenza Type B (PCR) RSV RNA Qual (PCR) SARS-CoV-2 RNA (RT-PCR) Imaging Radiologist's Impressions: Impressions Chest X-Ray 10/23/23 22:18 IMPRESSION: Bibasilar opacities, new from the prior study for which developing pneumonia is not excluded. There is advanced emphysema. Assessment and Plan (1) Respiratory failure with hypoxia and hypercapnia: Qualifiers: Chronicity: acute on chronic Qualified Code(s): J96.21 - Acute and chronic respiratory failure with hypoxia; J96.22 - Acute and chronic respiratory failure with hypercapnia Status: Acute (2) Acute hyponatremia: Status: Acute (3) Chest pain: Qualifiers: Chest pain type: unspecified Qualified Code(s): R07.9 - Chest pain, unspecified Status: Acute Plan Effie Aleman is a 88 y/o woman admitted with: * Hypoxic and hypercapnic respiratory failure likely multifactorial: Acute on chronic diastolic congestive heart failure, pulmonary hypertension secondary to restrictive + obstructive lung disease/COPD/emphysema (spirometry 2021 - mild obstructive pattern and severe restrictive pattern) and possible significant underlying sleep apnea --> cor pulmonale in the setting of underlying significant heart valve disease (mild , severe MS and mild-mod MR). Not quite convince patient has pneumonia. DDx: Pulmonary emboli -recent chest CTA showed no PE 10/16/23). Admit to hospitalist service. Telemetry. Pulse oximetry. Keep O2 sats > between 89-90%. Daily weight. Low-salt diet. Check procalcitonin and D-dimer. Lower extremity venous US (chest CT scan not ordered due to low GFR). Recheck VBGs. Continue Lasix 40 mg IV daily. Avoid sedatives. Pulmonology consult. Patient might need noninvasive ventilation therapy. * Acute encephalopathy. Likely secondary to above. Aspiration and fall precautions. * Chest pain and elevated troponin, likely underlying CAD. ECG changes on initial ECG (ST depression in lateral leads) while tachycardic. Repeat ECG done -these changes resolved. Aspirin 324 mg p.o. now then 81 mg daily and statin. Recheck troponin. Cardiology consult. * Hypervolemic hyponatremia, likely secondary to heart failure. Urine Na+ and osm pending. Continue Lasix. Continue to monitor Na+ level. * Hyperkalemia, mild. Hold valsartan. On Lasix. Continue to monitor K+ level. * CKD, stage 3B. Continue to monitor renal function. Avoid nephrotoxic agents. * Essential hypertension. Continue labetalol amlodipine. * Hyperlipidemia. Continue statin. * Anxiety and depression. Continue Lexapro. * Hypothyroidism. Recent TSH is normal. Continue levothyroxine. * GERD. Continue PPI. Code status: DNR DNI (per patient's wishes, daughter at bedside and agrees with this). DVT prophylaxis: Heparin Patient will need hospitalization for at least 2 midnights for hypoxic and hypercapnic respiratory failure treatment with supplemental oxygen and IV diuresis. Patient will need continuous cardiac monitoring as well as close monitoring of vital signs; and evaluation by subspecialties. Quality Stroke Does the patient have a stroke diagnosis?: No VTE Prior VTE?: No VTE Risk Level:: Medical - moderate - high VTE Device Contraindication: N/A - Device Ordered VTE Drug Contraindication: N/A - Med Ordered
--- NOTE | 2023-10-24 02:32 | MHC.EDTECH ---
purewick put in place, repeat EKG complete for admission pt in position of comfort with call posey within reach
[2023-10-24] MEDS: Aspirin 81 MG TAB.CHEW 324 MG PO (02:37)
[2023-10-24 03:17] LABS: Venous Blood Gas Refer to POC result
[2023-10-24 03:18] LABS: VBG Base Excess -0.5 mmol/L; VBG HCO3 24 mmol/L (22-26); VBG pCO2 42 mmHg; VBG pH 7.37 (7.32-7.43); VBG pO2 82 mmHg
[2023-10-24 03:24] LABS: D Dimer High Sensitivity 433 NG/ML
[2023-10-24 03:42] LABS: Troponin-I High Sensitivity 260.8 ng/L (<3.5-17.0)
[2023-10-24 03:52] LABS: Anion Gap 17 (12-20); Blood Urea Nitrogen 32 mg/dL (9-16); Calcium 9.3 mg/dL (8.4-10.2); Carbon Dioxide 20 mmol/L (22-29); Chloride 88 mmol/L (96-108); Estimated Glomerular Filt Rate 40; Glucose Random 136 mg/dL (60-115); Potassium 5.4 mmol/L (3.3-5.1); Sodium 120 mmol/L (135-145)
[2023-10-24] MEDS: Enoxaparin Sodium 60 MG/0.6 ML SYRINGE SUBCUT ×2 (04:07→09:18)
[2023-10-24 04:14] LABS: Procalcitonin 0.07 ng/mL
[2023-10-24 05:32] LABS: MANUAL DIFF FLAG NO
[2023-10-24 05:34] LABS: Basophils Percent Auto 0.1 % (0-2); Eosinophils Percent Auto 0.1 % (0-4); Hematocrit 33.9 % (37.0-47.0); Hemoglobin 11.8 g/dl (12.0-16.0); Imm Gran Abs Auto 0.02 X10*3/uL (0.00-0.03); Imm Gran Pct Auto 0.2 % (0.0-0.4); Lymphocytes Absolute Auto 0.7 X10*3/uL (1.2-4.9); Lymphocytes Percent Auto 7.3 % (20-40); Mean Corpuscular HGB Conc 34.8 g/dl (31.0-35.0); Mean Corpuscular Hemoglobin 30.2 pg (27.0-33.0); Mean Corpuscular Volume 86.7 fL (80.0-98.0); Mean Platelet Volume 10.4 fL (9.4-12.3); Monocytes Absolute Auto 1.3 X10*3/uL (0.1-1.2); Monocytes Percent Auto 13.3 % (2-11); Neutrophils Absolute Auto 7.7 x10*3/uL (2.0-8.3); Platelet Count 190 X10*3/uL (160-400); Red Blood Count 3.91 X10*6/uL (4.20-5.50); White Blood Count 9.8 X10*3/uL (4.8-10.8)
[2023-10-24 05:56] LABS: Anion Gap 13 (12-20); Blood Urea Nitrogen 33 mg/dL (9-16); Carbon Dioxide 23 mmol/L (22-29); Chloride 89 mmol/L (96-108); Creatinine Clr Calc Pharmacy 25.3; Estimated Glomerular Filt Rate 41; Glucose Random 127 mg/dL (60-115); Magnesium 1.9 mg/dL (1.6-2.6); Potassium 5.3 mmol/L (3.3-5.1); Sodium 120 mmol/L (135-145)
[2023-10-24] MEDS: Furosemide 40 MG/4 ML VIAL IVPUSH (09:18)
--- NOTE | 2023-10-24 09:30 | P.PNIM_ITS ---
Subjective Subjective Date of Service: 10/24/23 Interval History: f/u on acute hypoxic resp failure, NSTEMI, hyponatremia, confusion overall is feeling better, less sob, and less confused. Physical Exam 2 Vital Signs: Vital Signs: Last Vital Signs Temp 97.7 F 10/23/23 21:53 Pulse 82 10/24/23 06:19 Resp 16 10/24/23 06:19 BP 143/55 H 10/24/23 06:19 Pulse Ox 98 10/24/23 06:19 O2 Del Method Nasal Cannula 10/24/23 06:19 O2 Flow Rate 4 10/24/23 06:19 BMI result Body Mass Index 28.3 General: AO X 3, no acute distress Resp: CTA bilateral CVS: S1,S2,RRR, 1+ leg edama GI: +BS, NT, no distention Skin: No rash Neuro: motor grossly intact Psych: appropriate affect Objective Data Active Medications Acetaminophen (Acetaminophen 325 Mg Tablet) 975 mg PO Q6H PRN PRN Reason: mild pain, headache or fever Enoxaparin Sodium (Enoxaparin Sodium 60 Mg/0.6 Ml Syringe) 60 mg 1 mg/kg (60 mg) SUBCUT Q24H [facility] Last Admin: 10/24/23 09:18 Dose: 60 mg Documented By: CHACHO Furosemide (Furosemide 40 Mg/4 Ml Vial) 40 mg IVPUSH DAILY [facility]; Protocol Last Admin: 10/24/23 09:18 Dose: 40 mg Documented By: CHACHO Sodium Chloride (0.9 % Sodium Chloride Flush 3 Ml Syringe) 3 ml IVFLUSH QSHIFT [facility] Last Admin: 10/24/23 07:04 Dose: Not Given Documented By: CHACHO Non-Admin Reason: Previously Administered Labs 10/24/23 05:24 10/24/23 05:24 Labs: Laboratory Results - last 24 hr 10/23/23 10/23/23 10/23/23 21:50 22:18 22:29 MCV 86.6 MCH 30.0 MCHC 34.7 RDW 12.1 Plt Count 225 D MPV 10.2 Immature Gran % (Auto) 0.3 Neut % (Auto) 81.7 H Lymph % (Auto) 6.5 L [place] % (Auto) 7.5 Eos % (Auto) 3.7 Baso % (Auto) 0.3 Lymph # (Auto) 0.7 L [place] # (Auto) 0.9 Eos # (Auto) 0.4 Baso # (Auto) 0.0 Abs Immat Gran (auto) 0.04 H Absolute Neuts (auto) 9.3 H Absolute Nucleated RBC 0.000 Nucleated RBC % (auto) 0.0 D-Dimer High Sensitivty VBG pH 7.31 L VBG pCO2 59 VBG pO2 37 VBG HCO3 30 H VBG O2 Saturation 48.0 VBG Base Excess 2.6 Anion Gap 14 Estim Creat Clear Calc 22.4 Estimated GFR 35 Random Glucose 148 H Lactic Acid Calcium 9.6 Magnesium Troponin I High Sens 47.5 H D B-Natriuretic Peptide 204 H Procalcitonin Influenza Type A (PCR) NEGATIVE Influenza Type B (PCR) NEGATIVE RSV RNA Qual (PCR) NEGATIVE SARS-CoV-2 RNA (RT-PCR) NEGATIVE 10/24/23 10/24/23 10/24/23 00:20 03:09 03:11 MCV MCH MCHC RDW Plt Count MPV Immature Gran % (Auto) Neut % (Auto) Lymph % (Auto) [place] % (Auto) Eos % (Auto) Baso % (Auto) Lymph # (Auto) [place] # (Auto) Eos # (Auto) Baso # (Auto) Abs Immat Gran (auto) Absolute Neuts (auto) Absolute Nucleated RBC Nucleated RBC % (auto) D-Dimer High Sensitivty 433 VBG pH 7.37 VBG pCO2 42 VBG pO2 82 VBG HCO3 24 VBG O2 Saturation 96.0 VBG Base Excess -0.5 Anion Gap 17 Estim Creat Clear Calc 25.0 Estimated GFR 40 Random Glucose 136 H Lactic Acid 0.9 Calcium 9.3 Magnesium Troponin I High Sens 260.8 H* D B-Natriuretic Peptide Procalcitonin 0.07 Influenza Type A (PCR) Influenza Type B (PCR) RSV RNA Qual (PCR) SARS-CoV-2 RNA (RT-PCR) 10/24/23 05:24 MCV 86.7 MCH 30.2 MCHC 34.8 RDW 12.0 Plt Count 190 MPV 10.4 Immature Gran % (Auto) 0.2 Neut % (Auto) 79.0 H Lymph % (Auto) 7.3 L [place] % (Auto) 13.3 H Eos % (Auto) 0.1 Baso % (Auto) 0.1 Lymph # (Auto) 0.7 L [place] # (Auto) 1.3 H Eos # (Auto) 0.0 Baso # (Auto) 0.0 Abs Immat Gran (auto) 0.02 Absolute Neuts (auto) 7.7 Absolute Nucleated RBC 0.000 Nucleated RBC % (auto) 0.0 D-Dimer High Sensitivty VBG pH VBG pCO2 VBG pO2 VBG HCO3 VBG O2 Saturation VBG Base Excess Anion Gap 13 Estim Creat Clear Calc 25.3 Estimated GFR 41 Random Glucose 127 H Lactic Acid Calcium 9.0 Magnesium 1.9 Troponin I High Sens B-Natriuretic Peptide Procalcitonin Influenza Type A (PCR) Influenza Type B (PCR) RSV RNA Qual (PCR) SARS-CoV-2 RNA (RT-PCR) Assessment and Plan (1) Respiratory failure with hypoxia and hypercapnia: Status: Acute (2) Acute hyponatremia: Status: Acute (3) Hypertensive urgency: Status: Acute Plan 88/F with restrictive mingo disease, Copd, HTN, CKD here with acute hypoxic resp failure, hyponatremia Hypoxic and hypercapnic respiratory failure likely multifactorial: Acute on chronic diastolic congestive heart failure, pulmonary hypertension secondary to restrictive + obstructive lung disease/COPD/emphysema (spirometry 2021 -mild obstructive pattern and severe restrictive pattern) and possible significant underlying sleep apnea --> cor pulmonale in the setting of underlying significant heart valve disease (mild , severe MS and mild-mod MR). Not quite convince patient has pneumonia. DDx: Pulmonary emboli -recent chest CTA showed no PE 10/16/23). Keep O2 sats > between 89-90%. Daily weight. Low-salt diet. Procalcitonin normla, DD 443, Lower extremity venous US (chest CT scan not ordered due to low GFR). Continue Lasix 40 mg IV daily. Avoid sedatives. Pulmonology consult. Hold Abx Acute encephalopathy likely d/t hypoxia and Hyponatremia, seems better, now Chest pain and elevated troponin, likely underlying CAD. ECG changes on initial ECG (ST depression in lateral leads) while tachycardic, resolved on repeat -continue ASA -Lovenox -cardiology consultation Hypervolemic hyponatremia, likely secondary to heart failure. Urine Na+ and osm pending. Continue Lasix. -water restriction, frequent sodium level, Nephrology consult Hyperkalemia, mild. Hold valsartan. [facility] CKD, stage 3B. Stable Essential hypertension. Continue labetalol amlodipine. Hyperlipidemia. Continue statin. Anxiety and depression. hold Lexapro can make hyponatremia worse Hypothyroidism. Recent TSH is normal. Continue levothyroxine. GERD. Continue PPI. Code status: DNR DNI (per patient's wishes, daughter at bedside and agrees with this). DVT prophylaxis: Heparin need for inaptient: acute hypoxic resp failure, heart failyre, severe hyponatermia, needs close monitoring, repeat labs. Total time managing care of this patient today: 30 minutes. Quality Stroke Does the patient have a stroke diagnosis?: No VTE Prior VTE?: No VTE Risk Level:: Medical - moderate - high VTE Device Contraindication: N/A - Device Ordered VTE Drug Contraindication: N/A - Med Ordered
[2023-10-24 10:08] LABS: Troponin-I High Sensitivity 802.4 ng/L (<3.5-17.0)
--- NOTE | 2023-10-24 11:20 | PM.CNCAR ---
History of Present Illness History of Present Illness Date of Service: 10/24/23 Chief complaint: Hypoxic and hypercapnic respiratory failure Narrative: This is a cardiology consultation regarding elevated troponins. Patient is somewhat vague as to why she is here. Per H and P, there is a history of restrictive lung disease, emphysema and many comorbidities. She apparently presented for chest discomfort and some shortness of breath. Otherwise, recent hospitalization for hypertensive urgency. To me she states that she feels as though some acid reflux type symptom that has been going on for the last few weeks. When I questioned her about diet, she states that mainly happens during the times of her meals. Hence could very well be reflux but troponins are also going up and hence difficult to say for sure. Review of Systems Review of Systems: Yes all other systems are reviewed and are negative Constitutional: Constitutional: Reports as per HPI and Reports no additional constitutional complaints Eyes: Eyes: Reports as per HPI and Denies no additional eye complaints ENT: Denies system reviewed and no additional complaints, except as documented and Reports as per HPI Cardiovascular: Cardiovascular: Reports as per HPI, Reports no additional cardiovascular complaints, Denies acrocyanosis, Denies cool extremities, Reports chest pain, Denies leg edema, Denies lightheadedness, Denies palpitations and Denies dyspnea Respiratory: Respiratory: Reports as per HPI, Denies no additional respiratory complaints and Denies dyspnea Gastrointestinal: Gastrointestinal: Reports as per HPI and Denies no additional gastrointestinal complaints Genitourinary: Genitourinary: Reports as per HPI Musculoskeletal: Musculoskeletal: Reports no additional musculoskeletal complaints and Reports as per HPI Integumentary/Breasts: Skin/Breast: Reports system reviewed and no additional complaints, except as docu Neurologic: Reports system reviewed and no additional complaints, except as documented and Reports as per HPI Psychiatric: Psychiatric: Reports no additional psychiatric complaints and Reports as per HPI Endocrine: Endocrine: Reports no additional endocrine complaints, Reports as per HPI and Denies palpitations Hematologic/Lymphatic: Hematologic/Lymphatic: Reports no additional hematologic/lymphatic complaints and Reports as per HPI Allergic/Immunologic: Allergic/Immunologic: Reports no additional allergic/immunologic complaints and Reports as per HPI [facility] Past Medical History Medical History Restrictive lung disease COVID-19 vaccine series completed Heartburn Hypothyroid PVD (peripheral vascular disease) HTN (hypertension) Cough Allergic rhinitis Surgical History Surgical History Hx of tonsillectomy Hx of excision of mass H/O colonoscopy Social History Social History Household Members: None Housing: House Are you a primary healthcare economics consultant to a significant other at home: Yes (-disabled ) Do you presently have visiting nurse or other home services: No Alcohol intake: never Comment: Medicated with Tylenol 650 mg PO Patient Tobacco Use Status: Former Tobacco user Tobacco use type: Cigarette Cigarettes Per Day: 10 Smoked in Last 30 Days: No Advance Directives: No Advance Directives Information Provided: Yes Do you have a plan to hurt others: No Plan service: No Current occupational status: 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 Meds Allergies Allergy/AdvReac Type Severity Reaction Status Date / Time erythromycin base Allergy Intermediate Itching Verified 10/23/23 21:56 [ERYTHROMYCIN BASE] lisinopril Allergy Intermediate throat Verified 10/23/23 21:56 itchy simvastatin [From Zocor] AdvReac Severe Rash Verified 10/23/23 21:56 Active Medications: Current Medications Acetaminophen (Acetaminophen 325 Mg Tablet) 975 mg PO Q6H PRN PRN Reason: mild pain, headache or fever Alprazolam (Alprazolam 0.25 Mg Tablet) 0.25 mg PO DAILY PRN PRN Reason: Anxiety Amlodipine Besylate (Amlodipine Besylate 2.5 Mg Tablet) 2.5 mg PO BEDTIME [facility]; Protocol Aspirin (Aspirin Enteric Coated 81 Mg Tablet.) 81 mg PO DAILY [facility] Cilostazol (Cilostazol 50 Mg Tablet) 50 mg PO BID [facility] Enoxaparin Sodium (Enoxaparin Sodium 60 Mg/0.6 Ml Syringe) 60 mg 1 mg/kg (60 mg) SUBCUT Q24H [facility] Last Admin: 10/24/23 09:18 Dose: 60 mg Furosemide (Furosemide 40 Mg/4 Ml Vial) 40 mg IVPUSH DAILY [facility]; Protocol Last Admin: 10/24/23 09:18 Dose: 40 mg Labetalol HCl (Labetalol Hcl 100 Mg Tablet) 100 mg PO BID [facility]; Protocol Levothyroxine Sodium (Levothyroxine Sodium 50 Mcg Tablet) 50 mcg PO DAILY@0600 [facility] Melatonin (Melatonin 3 Mg Tablet) 3 mg PO BEDTIME PRN PRN Reason: Sleep Non-Formulary Medication (Loratadine) 10 mg PO BEDTIME [facility] Non-Formulary Medication (Rosuvastatin) 20 mg PO BEDTIME [facility] Omeprazole (Omeprazole 20 Mg Capsule.) 20 mg PO DAILY@0630 [facility] Sodium Chloride (0.9 % Sodium Chloride Flush 3 Ml Syringe) 3 ml IVFLUSH QSHIFT [facility] Last Admin: 10/24/23 07:04 Dose: Not Given Vitamin D (Cholecalciferol (Vitamin D3) 25 Mcg Tablet) 50 mcg PO DAILY [facility] Home Medications ?Medication ?Instructions ?Recorded ?Confirmed ?Last Taken ?Type aspirin 81 mg tablet,delayed 81 mg PO DAILY 04/20/20 10/24/23 10/23/23 History release (Adult Aspirin Regimen) cholecalciferol (vitamin D3) 50 50 mcg PO DAILY 04/20/20 10/24/23 10/23/23 History mcg (2,000 unit) capsule cilostazol 50 mg tablet 50 mg PO BID 04/20/20 10/24/23 10/23/23 History levothyroxine 50 mcg tablet 50 mcg PO DAILY@0600 04/20/20 10/24/23 10/23/23 History (Synthroid) loratadine 10 mg capsule 10 mg PO BEDTIME allergy symptoms 04/20/20 10/24/23 10/23/23 History valsartan 160 mg tablet 160 mg PO DAILY 04/20/20 10/24/23 10/23/23 History alprazolam 0.25 mg tablet 0.25 mg PO DAILY PRN Anxiety 10/16/23 10/24/23 10/15/23 History omeprazole 20 mg tablet,delayed 20 mg PO DAILY@0630 10/16/23 10/24/23 10/23/23 History release rosuvastatin 20 mg tablet 20 mg PO BEDTIME 10/16/23 10/24/23 10/23/23 History melatonin 3 mg tablet 3 mg PO BEDTIME PRN Sleep 10/24/23 10/24/23 Unknown History Physical Exam Vital Signs: Vital Signs: Last Vital Signs Temp 97.7 F 10/24/23 11:00 Pulse 102 H 10/24/23 11:00 Resp 12 10/24/23 11:00 BP 137/51 L 10/24/23 11:00 Pulse Ox 90 L 10/24/23 11:00 O2 Del Method Nasal Cannula 10/24/23 11:00 O2 Flow Rate 1 10/24/23 11:00 BMI result Body Mass Index 28.3 Const: General: comfortable and no acute distress Orientation/consciousness: patient oriented x3 HEENT: Other: Unremarkable Head: Yes normal to inspection Neck: Neck: Yes normal visual inspection Chest: Chest palpation & inspection: normal inspection of the chest Resp: Auscultation: clear to auscultation bilaterally Cardio: Palpation: normal PMI Heart sounds: S1 normal heart sound present, S2 normal heart sound present, no gallops, no murmurs and no rubs GI: Palpation (GI): Soft to palpation Back/Spine/Pelvis: Other: unremarkable Skin: General skin exam: no rashes or lesions noted Neuro: General: patient oriented x3 Extrem: General: Yes normal to inspection Psych: Mental Status: mental status grossly normal Objective Labs and Meds 10/24/23 05:24 10/24/23 05:24 Lab results: Laboratory Results - last 24 hr 10/23/23 10/23/23 10/23/23 21:50 22:18 22:29 WBC 11.4 H RBC 4.33 Hgb 13.0 Hct 37.5 MCV 86.6 MCH 30.0 MCHC 34.7 RDW 12.1 Plt Count 225 D MPV 10.2 Immature Gran % (Auto) 0.3 Neut % (Auto) 81.7 H Lymph % (Auto) 6.5 L [place] % (Auto) 7.5 Eos % (Auto) 3.7 Baso % (Auto) 0.3 Lymph # (Auto) 0.7 L [place] # (Auto) 0.9 Eos # (Auto) 0.4 Baso # (Auto) 0.0 Abs Immat Gran (auto) 0.04 H Absolute Neuts (auto) 9.3 H Absolute Nucleated RBC 0.000 Nucleated RBC % (auto) 0.0 D-Dimer High Sensitivty VBG pH 7.31 L VBG pCO2 59 VBG pO2 37 VBG HCO3 30 H VBG O2 Saturation 48.0 VBG Base Excess 2.6 Sodium 121 L Potassium 5.2 H D Chloride 86 L Carbon Dioxide 26 Anion Gap 14 BUN 33 H Creatinine 1.40 Estim Creat Clear Calc 22.4 Estimated GFR 35 Random Glucose 148 H Lactic Acid Calcium 9.6 Magnesium Troponin I High Sens 47.5 H D B-Natriuretic Peptide 204 H Procalcitonin Influenza Type A (PCR) NEGATIVE Influenza Type B (PCR) NEGATIVE RSV RNA Qual (PCR) NEGATIVE SARS-CoV-2 RNA (RT-PCR) NEGATIVE 10/24/23 10/24/23 10/24/23 00:20 03:09 03:11 WBC RBC Hgb Hct MCV MCH MCHC RDW Plt Count MPV Immature Gran % (Auto) Neut % (Auto) Lymph % (Auto) [place] % (Auto) Eos % (Auto) Baso % (Auto) Lymph # (Auto) [place] # (Auto) Eos # (Auto) Baso # (Auto) Abs Immat Gran (auto) Absolute Neuts (auto) Absolute Nucleated RBC Nucleated RBC % (auto) D-Dimer High Sensitivty 433 VBG pH 7.37 VBG pCO2 42 VBG pO2 82 VBG HCO3 24 VBG O2 Saturation 96.0 VBG Base Excess -0.5 Sodium 120 L* Potassium 5.4 H Chloride 88 L Carbon Dioxide 20 L Anion Gap 17 BUN 32 H Creatinine 1.26 Estim Creat Clear Calc 25.0 Estimated GFR 40 Random Glucose 136 H Lactic Acid 0.9 Calcium 9.3 Magnesium Troponin I High Sens 260.8 H* D B-Natriuretic Peptide Procalcitonin 0.07 Influenza Type A (PCR) Influenza Type B (PCR) RSV RNA Qual (PCR) SARS-CoV-2 RNA (RT-PCR) 10/24/23 10/24/23 10/24/23 05:24 09:29 09:29 WBC 9.8 RBC 3.91 L Hgb 11.8 L Hct 33.9 L MCV 86.7 MCH 30.2 MCHC 34.8 RDW 12.0 Plt Count 190 MPV 10.4 Immature Gran % (Auto) 0.2 Neut % (Auto) 79.0 H Lymph % (Auto) 7.3 L [place] % (Auto) 13.3 H Eos % (Auto) 0.1 Baso % (Auto) 0.1 Lymph # (Auto) 0.7 L [place] # (Auto) 1.3 H Eos # (Auto) 0.0 Baso # (Auto) 0.0 Abs Immat Gran (auto) 0.02 Absolute Neuts (auto) 7.7 Absolute Nucleated RBC 0.000 Nucleated RBC % (auto) 0.0 D-Dimer High Sensitivty VBG pH VBG pCO2 VBG pO2 VBG HCO3 VBG O2 Saturation VBG Base Excess Sodium 120 L* Potassium 5.3 H Chloride 89 L Carbon Dioxide 23 Anion Gap 13 BUN 33 H Creatinine 1.24 Estim Creat Clear Calc 25.3 Estimated GFR 41 Random Glucose 127 H Lactic Acid Calcium 9.0 Magnesium 1.9 Troponin I High Sens 802.4 H* D Cancelled B-Natriuretic Peptide Procalcitonin Influenza Type A (PCR) Influenza Type B (PCR) RSV RNA Qual (PCR) SARS-CoV-2 RNA (RT-PCR) ECG Interpretation: EKG with sinus tachycardia, 107/Min; left ventricular hypertrophy and inferior/lateral ST depression. In the repeat EKG, that looked better. Imaging Radiologist's impression: Impressions Chest X-Ray 10/23/23 22:18 IMPRESSION: Bibasilar opacities, new from the prior study for which developing pneumonia is not excluded. There is advanced emphysema. Assessment and Plan (1) NSTEMI (non-ST elevated myocardial infarction): Status: Acute Plan High sensitivity troponin levels are 47.5 followed by 260. Most recently 802. This is suggestive of non ST elevation myocardial infarction. In the initial EKG, there was inferior and lateral ST depression but improved in subsequent EKG. Echocardiogram with LVEF of 60-65%; severe calcific mitral stenosis/[id number] mitral regurgitation. Severe pulmonary hypertension. Otherwise, labs show hyponatremia and hyperkalemia. She seems to be on subcutaneous Lovenox and agree with that. Also on aspirin. Statins. With regard to ischemia workup will need to decide if she will be suitable for a diagnostic catheterization or not mainly on account of age and comorbidities. Will follow-up with you. Procedures Date of Service Date of Service: 10/24/23
--- NOTE | 2023-10-24 11:37 | PC.NURSE ---
Pharmacy called stating medications are [facility]
[2023-10-24 11:59] LABS: Sodium 123 mmol/L (135-145)
[2023-10-24 12:01] LABS: Osmolality Urine 264 mosm/kg (373-1093)
[2023-10-24] MEDS: Labetalol HCL 100 MG TABLET PO ×2 (12:08→20:15)
[2023-10-24] MEDS: Sodium Zirconium Cyclosilicate 10 GM POWD.PACK PO (12:08)
[2023-10-24] MEDS: Levothyroxine Sodium 50 MCG TABLET PO (12:09)
[2023-10-24] MEDS: Omeprazole 20 MG CAPSULE.DR PO (12:09)
[2023-10-24] MEDS: Cholecalciferol (Vitamin D3) 25 MCG TABLET 50 MCG PO (12:09)
--- NOTE | 2023-10-24 12:46 | PC.NURSE ---
Alert and oriented, daughter at bedside and reviewed med list, pharmacy notified of changes. Patient reports no pain or discomfort. Denies chest pain. Po meds as ordered, NSR on monitor, vss
[2023-10-24] MEDS: Aspirin Enteric Coated 81 MG TABLET.DR PO (13:08)
[2023-10-24] MEDS: cilostazoL 50 MG TABLET PO ×2 (13:08→20:11)
--- NOTE | 2023-10-24 13:33 | PHA.MEDREC ---
Pharmacy Consult ? Medication Reconciliation Pharmacy has completed the medication reconciliation. spoke with patients daughter over the phone to confirm medications. Patient started the amlodipine, labetalol, and escitalopram, not the trazodone as she wanted to try other things for sleep. Confirmed other prescription medications [facility], matched with patients home med list. Alprazolam also confirmed with PDMP.
--- NOTE | 2023-10-24 13:34 | P.CONPL_ITS ---
History of Present Illness History of Present Illness Consult date: 10/24/23 Chief complaint: Hypoxic and hypercapnic respiratory failure Narrative: This is an inpatient pulmonary consultation. The patient is an 88 years old woman with past medical history significant for restrictive lung disease, pulmonary emphysema, hypothyroidism, HFpEF and hypertension was brought to the emergency department complaining of worsening retrosternal chest pain and some shortness on breath. She was recently admitted to the hospital with diagnosis of hypertensive urgency. Daughter mentioned that since the patient's seems very somnolent and weak. In the ED, the patient was found to have low O2 sats, 80% and was placed on 4L/min (we decreased to 2L/min to avoid CO2 retention). She also was found to have tachypnea and tachycardia. Temperature is normal. Blood workup is remarkable for mild leukocytosis 11.4. There is no lactic acidosis. Hemoglobin and platelets are normal. VBG showed low pH of 7.31 and PCO2 59. There is hyponatremia 121, hyperkalemia of 5.2 and glucose 148. Troponin is 47.5 and BNP 204. CXR personally reviewed by me, with bilateral basilar opacities. Review of Systems 2 Review of Systems: Yes all other systems are reviewed and are negative Constitutional: Constitutional: Reports as per HPI and Reports no additional constitutional complaints Eyes: Eyes: Reports as per HPI and Denies no additional eye complaints ENT: Denies system reviewed and no additional complaints, except as documented and Reports as per HPI Cardiovascular: Cardiovascular: Reports as per HPI, Reports no additional cardiovascular complaints, Denies acrocyanosis, Denies cool extremities, Reports chest pain, Denies leg edema, Denies lightheadedness, Denies palpitations and Denies dyspnea Respiratory: Respiratory: Reports as per HPI, Denies no additional respiratory complaints and Denies dyspnea Gastrointestinal: Gastrointestinal: Reports as per HPI and Denies no additional gastrointestinal complaints Genitourinary: Genitourinary: Reports as per HPI Musculoskeletal: Musculoskeletal: Reports no additional musculoskeletal complaints and Reports as per HPI Integumentary/Breasts: Skin/Breast: Reports system reviewed and no additional complaints, except as docu Neurologic: Reports system reviewed and no additional complaints, except as documented and Reports as per HPI Psychiatric: Psychiatric: Reports no additional psychiatric complaints and Reports as per HPI Endocrine: Endocrine: Reports no additional endocrine complaints, Reports as per HPI and Denies palpitations Hematologic/Lymphatic: Hematologic/Lymphatic: Reports no additional hematologic/lymphatic complaints and Reports as per HPI Allergic/Immunologic: Allergic/Immunologic: Reports no additional allergic/immunologic complaints and Reports as per HPI [facility] Past Medical History Medical History Restrictive lung disease COVID-19 vaccine series completed Heartburn Hypothyroid PVD (peripheral vascular disease) HTN (hypertension) Cough Allergic rhinitis Surgical History Surgical History Hx of tonsillectomy Hx of excision of mass H/O colonoscopy Social History Social History Household Members: None Housing: House Are you a primary point of care specialist to a significant other at home: Yes (- disabled ) Do you presently have visiting nurse or other home services: No Alcohol intake: never Comment: Medicated with Tylenol 650 mg PO Patient Tobacco Use Status: Former Tobacco user Tobacco use type: Cigarette Cigarettes Per Day: 10 Smoked in Last 30 Days: No Advance Directives: No Advance Directives Information Provided: Yes Do you have a plan to hurt others: No Plan service: No 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 occupational status: 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 Meds Allergies Allergy/AdvReac Type Severity Reaction Status Date / Time erythromycin base Allergy Intermediate Itching Verified 10/23/23 21:56 [ERYTHROMYCIN BASE] lisinopril Allergy Intermediate throat Verified 10/23/23 21:56 itchy simvastatin [From Zocor] AdvReac Severe Rash Verified 10/23/23 21:56 Active Medications: Current Medications Acetaminophen (Acetaminophen 325 Mg Tablet) 975 mg PO Q6H PRN PRN Reason: mild pain, headache or fever Alprazolam (Alprazolam 0.25 Mg Tablet) 0.25 mg PO DAILY PRN PRN Reason: Anxiety Amlodipine Besylate (Amlodipine Besylate 2.5 Mg Tablet) 2.5 mg PO BEDTIME [facility]; Protocol Aspirin (Aspirin Enteric Coated 81 Mg Tablet.Dr) 81 mg PO DAILY [facility] Last Admin: 10/24/23 13:08 Dose: 81 mg Atorvastatin Calcium (Atorvastatin Calcium 20 Mg Tablet) 20 mg PO BEDTIME [facility] Cilostazol (Cilostazol 50 Mg Tablet) 50 mg PO BID [facility] Last Admin: 10/24/23 13:08 Dose: 50 mg Enoxaparin Sodium (Enoxaparin Sodium 60 Mg/0.6 Ml Syringe) 60 mg 1 mg/kg (60 mg) SUBCUT Q24H [facility] Last Admin: 10/24/23 09:18 Dose: 60 mg Furosemide (Furosemide 40 Mg/4 Ml Vial) 40 mg IVPUSH DAILY [facility]; Protocol Last Admin: 10/24/23 09:18 Dose: 40 mg Labetalol HCl (Labetalol Hcl 100 Mg Tablet) 100 mg PO BID [facility]; Protocol Last Admin: 10/24/23 12:08 Dose: 100 mg Levothyroxine Sodium (Levothyroxine Sodium 50 Mcg Tablet) 50 mcg PO DAILY@0600 [facility] Last Admin: 10/24/23 12:09 Dose: 50 mcg Loratadine (Loratadine 10 Mg Tablet) 10 mg PO BEDTIME [facility] Melatonin (Melatonin 3 Mg Tablet) 3 mg PO BEDTIME PRN PRN Reason: Sleep Omeprazole (Omeprazole 20 Mg Capsule.Dr) 20 mg PO DAILY@0630 [facility] Last Admin: 10/24/23 12:09 Dose: 20 mg Sodium Chloride (0.9 % Sodium Chloride Flush 3 Ml Syringe) 3 ml IVFLUSH QSHIFT [facility] Last Admin: 10/24/23 07:04 Dose: Not Given Vitamin D (Cholecalciferol (Vitamin D3) 25 Mcg Tablet) 50 mcg PO DAILY [facility] Last Admin: 10/24/23 12:09 Dose: 50 mcg Home Medications ?Medication ?Instructions ?Recorded ?Confirmed ?Last Taken ?Type aspirin 81 mg tablet,delayed 81 mg PO DAILY 04/20/20 10/24/23 10/23/23 History release (Adult Aspirin Regimen) cholecalciferol (vitamin D3) 50 50 mcg PO DAILY 04/20/20 10/24/23 10/23/23 History mcg (2,000 unit) capsule cilostazol 50 mg tablet 50 mg PO BID 04/20/20 10/24/23 10/23/23 History levothyroxine 50 mcg tablet 50 mcg PO DAILY@0600 04/20/20 10/24/23 10/23/23 History (Synthroid) loratadine 10 mg capsule 10 mg PO BEDTIME allergy symptoms 04/20/20 10/24/23 10/23/23 History valsartan 160 mg tablet 160 mg PO DAILY 1210/24/23 10/23/23 History alprazolam 0.25 mg tablet 0.25 mg PO DAILY PRN Anxiety 10/16/23 10/24/23 10/15/23 History omeprazole 20 mg tablet,delayed 20 mg PO DAILY@0630 10/16/23 10/24/23 10/23/23 History release rosuvastatin 20 mg tablet 20 mg PO BEDTIME 10/16/23 10/24/23 10/23/23 History ascorbic acid (vitamin C) 500 mg 500 mg PO DAILY 10/24/23 10/24/23 Unknown History tablet (Vitamin C) melatonin 3 mg tablet 3 mg PO BEDTIME PRN Sleep 10/24/23 10/24/23 Unknown History Physical Exam 2 Vital Signs: Vital Signs: Last Vital Signs Temp 97.8 F 10/24/23 13:25 Pulse 91 10/24/23 13:25 Resp 18 10/24/23 13:25 BP 115/52 L 10/24/23 13:25 Pulse Ox 93 10/24/23 13:25 O2 Del Method Nasal Cannula 10/24/23 13:25 O2 Flow Rate 1 10/24/23 13:25 BMI result Body Mass Index 34.3 Const: General: comfortable and no acute distress O rientation/consciousness: patient oriented x3 HEENT: Other: Unremarkable Head: Yes normal to inspection Neck: Neck: Yes normal visual inspection Chest: Chest palpation & inspection: normal inspection of the chest Resp: Auscultation: clear to auscultation bilaterally Cardio: Heart sounds: S1 normal heart sound present and S2 normal heart sound present GI: Palpation (GI): Soft to palpation Back/Spine/Pelvis: Other: unremarkable Skin: General skin exam: no rashes or lesions noted Neuro: General: patient oriented x3 Extrem: General: Yes normal to inspection Psych: Mental Status: mental status grossly normal Results Laboratory Findings 10/24/23 05:24 10/24/23 11:38 Abnormal lab findings: Abnormal Labs 10/23/23 10/23/23 10/24/23 21:50 22:29 03:09 WBC 11.4 H RBC Hgb Hct Neut % (Auto) 81.7 H Lymph % (Auto) 6.5 L [place] % (Auto) Lymph # (Auto) 0.7 L [place] # (Auto) Abs Immat Gran (auto) 0.04 H Absolute Neuts (auto) 9.3 H VBG pH 7.31 L VBG HCO3 30 H Sodium 121 L 120 L* Potassium 5.2 H D 5.4 H Chloride 86 L 88 L Carbon Dioxide 20 L BUN 33 H 32 H Random Glucose 148 H 136 H Troponin I High Sens 47.5 H D 260.8 H* D B-Natriuretic Peptide 204 H Urine Osmolality 10/24/23 10/24/23 10/24/23 05:24 09:29 11:38 WBC RBC 3.91 L Hgb 11.8 L Hct 33.9 L Neut % (Auto) 79.0 H Lymph % (Auto) 7.3 L [place] % (Auto) 13.3 H Lymph # (Auto) 0.7 L [place] # (Auto) 1.3 H Abs Immat Gran (auto) Absolute Neuts (auto) VBG pH VBG HCO3 Sodium 120 L* 123 L Potassium 5.3 H Chloride 89 L Carbon Dioxide BUN 33 H Random Glucose 127 H Troponin I High Sens 802.4 H* D B-Natriuretic Peptide Urine Osmolality 264 L Assessment and Plan (1) NSTEMI (non-ST elevated myocardial infarction): Status: Acute (2) Respiratory failure with hypoxia and hypercapnia: Qualifiers: Chronicity: acute on chronic Qualified Code(s): J96.21 - Acute and chronic respiratory failure with hypoxia; J96.22 - Acute and chronic respiratory failure with hypercapnia Status: Acute (3) Acute hyponatremia: Status: Acute Plan continue respiratory therapy cardiac evaluation pending diuresis as tolerated oxygen supplementation to keep pox>90% Procedures Date of Service Date of Service: 10/24/23
--- NOTE | 2023-10-24 14:00 | PC.NURSE ---
oob to recliner chair, family at bedside, stating does not want to eat lunch, taking po fluids when offered
--- NOTE | 2023-10-24 15:43 | MHC.CM.PN ---
Wes IMM 10/24/23, Pt lives alone and has support from her 2 daughters. She is in the process of getting evaluated by [facility] for home care services, and [facility], [facility]. She gave CM a form and requests that hospitalist complete form stating that she is home bound, for the Aid and Attendance application. CM has copy. Dtr, Tatyana was at bedside, reports that pt was here a few days ago and went home and was very weak. She said that home care services should have been put in place, that pt was very weak and just layed on the couch for several days. DCP: home with services. HCP, pt has, names her son and dtrAnaid, copy or form completion here requested, pt declined, CM suggested re-addressing when pt in on floor, pt in agreement. PCP: Dr. Lemus, VIJAYA will follow for DC needs.
--- NOTE | 2023-10-24 16:38 | PC.NURSE ---
patient incontinent of urine, incontinence care provided, patient changed into new gown, placed on hospital stretcher, all safety maintained. patient to be transported to floor at this time
[2023-10-24 16:46] LABS: Sodium 123 mmol/L (135-145)
[2023-10-24] MEDS: amLODIPine Besylate 2.5 MG TABLET PO (20:11)
[2023-10-24] MEDS: Atorvastatin Calcium 20 MG TABLET PO (20:11)
[2023-10-24] MEDS: Loratadine 10 MG TABLET PO (20:11)
[2023-10-24] MEDS: 0.9 % Sodium Chloride Flush 3 ML SYRINGE IVFLUSH (20:16)
--- NOTE | 2023-10-24 20:21 | PM.CNNEP ---
History of Present Illness Reason for Consult Consult date: 10/24/23 Reason for consult: Hyponatremia Chief Complaint Chief complaint: Hypoxic and hypercapnic respiratory failure History of Present Illness Narrative: 88 years old woman with restrictive lung disease, HFpEF and hypertension was brought to the emergency department complaining of worsening retrosternal chest pain and some shortness on breath. She has been having edema of the lower extremities. She was recently admitted to the hospital with diagnosis of hypertensive urgency. Patient denied gastrointestinal symptoms. Denied alcohol abuse. In the ED, the patient was found to have low O2 sats, 80% and was placed on 4L/min (we decreased to 2L/min to avoid CO2 retention). She also was found to have tachypnea and tachycardia. Blood workup is remarkable for hyponatremia with serum Na of 121, hyperkalemia of 5.2. She was admitted for further management. Nephrology has been consulted to assist in her clinical care during her current hospital stay Review of Systems Review of Systems Yes all other systems are reviewed and are negative PMFSH Past Medical History Medical History Restrictive lung disease COVID-19 vaccine series completed Heartburn Hypothyroid PVD (peripheral vascular disease) HTN (hypertension) Cough Allergic rhinitis Surgical History Surgical History Hx of tonsillectomy Hx of excision of mass H/O colonoscopy Social History Social History Household Members: None Housing: House Are you a primary intensive care anaesthetist to a significant other at home: Yes (-disabled ) Do you presently have visiting nurse or other home services: No Alcohol intake: never Comment: Medicated with Tylenol 650 mg PO Patient Tobacco Use Status: Former Tobacco user Tobacco use type: Cigarette Cigarettes Per Day: 10 service: Yes Current occupational status: 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 Meds Allergies Allergy/AdvReac Type Severity Reaction Status Date / Time erythromycin base Allergy Intermediate Itching Verified 10/23/23 21:56 [ERYTHROMYCIN BASE] lisinopril Allergy Intermediate throat Verified 10/23/23 21:56 itchy simvastatin [From Zocor] AdvReac Severe Rash Verified 10/23/23 21:56 Active Medications: Current Medications Acetaminophen (Acetaminophen 325 Mg Tablet) 975 mg PO Q6H PRN PRN Reason: mild pain, headache or fever Alprazolam (Alprazolam 0.25 Mg Tablet) 0.25 mg PO DAILY PRN PRN Reason: Anxiety Amlodipine Besylate (Amlodipine Besylate 2.5 Mg Tablet) 2.5 mg PO BEDTIME [facility] [place]; Protocol Last Admin: 10/24/23 20:11 Dose: 2.5 mg Aspirin (Aspirin Enteric Coated 81 Mg Tablet.) 81 mg PO DAILY [facility] [place] Last Admin: 10/24/23 13:08 Dose: 81 mg Atorvastatin Calcium (Atorvastatin Calcium 20 Mg Tablet) 20 mg PO BEDTIME [facility] [place] Last Admin: 10/24/23 20:11 Dose: 20 mg Cilostazol (Cilostazol 50 Mg Tablet) 50 mg PO BID [facility] [place] Last Admin: 10/24/23 20:11 Dose: 50 mg Enoxaparin Sodium (Enoxaparin Sodium 60 Mg/0.6 Ml Syringe) 60 mg 1 mg/kg (60 mg) SUBCUT Q24H [facility] [place] Last Admin: 10/24/23 09:18 Dose: 60 mg Furosemide (Furosemide 40 Mg/4 Ml Vial) 40 mg IVPUSH DAILY [facility] [place]; Protocol Last Admin: 10/24/23 09:18 Dose: 40 mg Labetalol HCl (Labetalol Hcl 100 Mg Tablet) 100 mg PO BID [facility] [place]; Protocol Last Admin: 10/24/23 20:15 Dose: 100 mg Levothyroxine Sodium (Levothyroxine Sodium 50 Mcg Tablet) 50 mcg PO DAILY@0600 [facility] [place] Last Admin: 10/24/23 12:09 Dose: 50 mcg Loratadine (Loratadine 10 Mg Tablet) 10 mg PO BEDTIME [facility] [place] Last Admin: 10/24/23 20:11 Dose: 10 mg Melatonin (Melatonin 3 Mg Tablet) 3 mg PO BEDTIME PRN PRN Reason: Sleep Omeprazole (Omeprazole 20 Mg Capsule.) 20 mg PO DAILY@0630 [facility] [place] Last Admin: 10/24/23 12:09 Dose: 20 mg Sodium Chloride (0.9 % Sodium Chloride Flush 3 Ml Syringe) 3 ml IVFLUSH QSHIFT [facility] [place] Last Admin: 10/24/23 20:16 Dose: 3 ml Vitamin D (Cholecalciferol (Vitamin D3) 25 Mcg Tablet) 50 mcg PO DAILY [facility] [place] Last Admin: 10/24/23 12:09 Dose: 50 mcg Home Medications ?Medication ?Instructions ?Recorded ?Confirmed ?Last Taken ?Type aspirin 81 mg tablet,delayed 81 mg PO DAILY 04/20/20 10/24/23 10/23/23 History release (Adult Aspirin Regimen) cholecalciferol (vitamin D3) 50 50 mcg PO DAILY 04/20/20 10/24/23 10/23/23 History mcg (2,000 unit) capsule cilostazol 50 mg tablet 50 mg PO BID 04/20/20 10/24/23 10/23/23 History levothyroxine 50 mcg tablet 50 mcg PO DAILY@0600 04/20/20 10/24/23 10/23/23 History (Synthroid) loratadine 10 mg capsule 10 mg PO BEDTIME allergy symptoms 04/20/20 10/24/23 10/23/23 History valsartan 160 mg tablet 160 mg PO DAILY 04/20/20 10/24/23 10/23/23 History alprazolam 0.25 mg tablet 0.25 mg PO DAILY PRN Anxiety 10/16/23 10/24/23 10/15/23 History omeprazole 20 mg tablet,delayed 20 mg PO DAILY@0630 10/16/23 10/24/23 10/23/23 History release rosuvastatin 20 mg tablet 20 mg PO BEDTIME 10/16/23 10/24/23 10/23/23 History ascorbic acid (vitamin C) 500 mg 500 mg PO DAILY 10/24/23 10/24/23 Unknown History tablet (Vitamin C) melatonin 3 mg tablet 3 mg PO BEDTIME PRN Sleep 10/24/23 10/24/23 Unknown History Physical Exam Vital Signs: Last Vital Signs Temp 98.6 F 10/24/23 19:30 Pulse 110 H 10/24/23 20:15 Resp 20 10/24/23 19:30 BP 105/49 L 10/24/23 20:15 Pulse Ox 93 10/24/23 19:30 O2 Del Method Nasal Cannula 10/24/23 19:30 O2 Flow Rate 0.5 10/24/23 19:30 BMI result Body Mass Index 34.3 Const General: comfortable and no acute distress HEENT Head: Yes normocephalic Mouth: Normal oral and palatal mucosa present Eyes EOM: EOMs intact bilaterally Neck Neck: Yes supple Resp Auscultation: diminished lung sounds Cardio Jugular venous distension: no JVD Rate: regular rate GI Palpation (GI): Soft to palpation Auscultation: normal bowel sounds Neuro General: moves all extremities Extrem General: Yes edema Results Lab Results 10/24/23 05:24 10/24/23 16:28 Lab results: Chemistry 10/23/23 10/24/23 10/24/23 21:50 03:09 05:24 Sodium 121 L 120 L* 120 L* Potassium 5.2 H D 5.4 H 5.3 H Carbon Dioxide 26 20 L 23 BUN 33 H 32 H 33 H Creatinine 1.40 1.26 1.24 Calcium 9.6 9.3 9.0 10/24/23 10/24/23 11:38 16:28 Sodium 123 L 123 L Potassium Carbon Dioxide BUN Creatinine Calcium Hematology 10/23/23 10/24/23 21:50 05:24 WBC 11.4 H 9.8 Hgb 13.0 11.8 L Plt Count 225 D 190 Urine Studies 10/24/23 11:38 Urine Osmolality 264 L Assessment and Plan (1) Hypertension: Qualifiers: Hypertension type: primary hypertension Qualified Code(s): I10 - Essential (primary) hypertension Status: Acute (2) Acute hyponatremia: Status: Acute (3) CKD (chronic kidney disease) stage 3, GFR 30-59 ml/min: Qualifiers: Chronic kidney disease stage 3 subtype: stage 3b (GFR 30-44) Qualified Code(s): N18.32 - Chronic kidney disease, stage 3b Status: Acute Plan Hyponatremia likely multifactorial. Has baseline excess ADH Was mildly hypervolemic at presentation and received diuretic Serum sodium marginally better. No indication for hypertonic saline Ordered serum cortisol and TSH. May need oral urea 15 g b.i.d. p.o. Continue with rest of her current management for now; shall follow along Procedures Date of Service Date of Service: 10/24/23
[2023-10-24 20:22] LABS: Sodium 122 mmol/L (135-145)
[2023-10-24] MEDS: Melatonin 3 MG TABLET PO (20:58)
[2023-10-24] MEDS: ALPRAZolam 0.25 MG TABLET PO (20:58)
[2023-10-25] VITALS (7 sets, daily range): BP systolic 101–124; BP diastolic 49–56; PULSE 86–100; RESP 18–20; TEMP 35.9–36.8; O2SAT 94–100
[2023-10-25] MEDS: Levothyroxine Sodium 50 MCG TABLET PO (05:34)
[2023-10-25] MEDS: Omeprazole 20 MG CAPSULE.DR PO (05:34)
--- NOTE | 2023-10-25 07:00 | CA_ITS ---
Transthoracic Echocardiogram Patient (Last, First, Middle): Effie Aleman, Gender: Female Date of : 1935 Age: 88 Procedure Date: 10/25/2023 Procedure Type: Transthoracic Echocardiogram Location[place] [facility] [place] Height: 149.86 cm Weight: 76.66 kg BSA: 1.72 m2 Heart Rate: 86 bpm BP: 110 / 53 mmHg Electronics Warfare Technician: ERICA Referring MD: Clive Albert MD Symptoms: NSTEMI Study Quality: Fair/Limited by order ECG Rhythm: Sinus Conclusions: - The left ventricular systolic function is hyperdynamic. The visually estimated ejection fraction is >70%. Findings Left Ventricle Normal left ventricular cavity size. The left ventricular systolic function is hyperdynamic. The visually estimated ejection fraction is >70%. There is no evidence of regional wall motion abnormalities. There is moderate septal asymmetric hypertrophy. Venous The inferior vena cava is normal in size and collapses greater than 50% with inspiration. Prior Study Comparison No significant change compared to prior study dated: 10/17/2023. Measurements 2D Linear Measurements IVSd: 1.33 0.6-0.9/0.6-1.0 cm LVIDd: 3.81 3.9-5.3/4.2-5.9 cm LVIDd Index: 2.22 2.4-3.2/2.2-3.1 cm/m2 LVIDs: 1.80 2.0-3.6 cm LVPWd: 0.92 0.7-1.1 cm LV Mass: 173.47 67-162/88-224 g LV Mass Index: 100.85 43-95/49-115 g/m2 LVOT Diam: 1.90 3.0+(-)1.3 cm 2D Systolic Function EF 4C: 74.50 >55% EF 2C: 71.40 >55% EF BiP: 73.50 >55% LVOT LVOT Pk Daniel: 1.31 LVOT Mn Daniel: 0.98 LVOT VTI: 0.26 LVOT Pk Grad: 7.00 LVOT Mn Grad: 4.00 LVOT Diam: 1.90 LVOT Area: 2.84 Updated in Other Vendor System with Status of Final Clive Albert MD electronically signed on 10/25/2023 1:23:01 PM with status of Final
[2023-10-25 08:10] LABS: Anion Gap 10 (12-20); Blood Urea Nitrogen 34 mg/dL (9-16); Calcium 9.2 mg/dL (8.4-10.2); Carbon Dioxide 32 mmol/L (22-29); Chloride 86 mmol/L (96-108); Estimated Glomerular Filt Rate 36; Glucose Random 91 mg/dL (60-115); Potassium 4.3 mmol/L (3.3-5.1); Sodium 124 mmol/L (135-145)
[2023-10-25 08:26] LABS: Cortisol Random 10.3 ug/dL
[2023-10-25 08:28] LABS: Thyroid Stimulating Hormone 4.56 uIU/mL (0.32-4.0)
[2023-10-25] MEDS: Furosemide 40 MG/4 ML VIAL IVPUSH (09:01)
[2023-10-25] MEDS: Enoxaparin Sodium 60 MG/0.6 ML SYRINGE SUBCUT (09:01)
[2023-10-25] MEDS: Aspirin Enteric Coated 81 MG TABLET.DR PO (09:01)
[2023-10-25] MEDS: cilostazoL 50 MG TABLET PO ×2 (09:01→21:16)
[2023-10-25] MEDS: Cholecalciferol (Vitamin D3) 25 MCG TABLET 50 MCG PO (09:01)
[2023-10-25] MEDS: Labetalol HCL 100 MG TABLET PO ×2 (09:01→21:14)
[2023-10-25] MEDS: 0.9 % Sodium Chloride Flush 3 ML SYRINGE IVFLUSH ×3 (09:02→21:17)
--- NOTE | 2023-10-25 09:35 | P.PNPL_ITS ---
Subjective Subjective Date of Service: 10/25/23 Interval history: Titrate off supplemental oxygen. Objective Data Labs 10/24/23 05:24 10/25/23 06:17 Labs: Laboratory Results - last 24 hr 10/24/23 10/24/23 10/24/23 09:29 09:29 11:38 Hold Purple Top Sodium 123 L Potassium Chloride Carbon Dioxide Anion Gap BUN Creatinine Estim Creat Clear Calc Estimated GFR Random Glucose Calcium Troponin I High Sens 802.4 H* D Cancelled TSH Random Cortisol Urine Osmolality 264 L Ur Random Sodium 69.0 10/24/23 10/24/23 10/25/23 16:28 20:07 06:17 Hold Purple Top SEE NOTE Sodium 123 L 122 L 124 L Potassium 4.3 Chloride 86 L Carbon Dioxide 32 H Anion Gap 10 L BUN 34 H Creatinine 1.39 Estim Creat Clear Calc 25.0 Estimated GFR 36 Random Glucose 91 Calcium 9.2 Troponin I High Sens TSH 4.56 H Random Cortisol 10.3 Urine Osmolality Ur Random Sodium Microbiology Microbiology Results: Microbiology 10/24/23 01:08 Blood - Venous Blood Culture - Preliminary No growth after 24 hours. 10/24/23 01:08 Blood - Venous Blood Culture - Preliminary No growth after 24 hours. Physical Exam 2 Vital Signs: Vital Signs: Last Vital Signs Temp 97.4 F 10/25/23 07:09 Pulse 100 10/25/23 07:09 Resp 18 10/25/23 07:09 BP 119/56 L 10/25/23 07:09 Pulse Ox 100 10/25/23 07:09 O2 Del Method Nasal Cannula 10/25/23 07:09 O2 Flow Rate 1 10/25/23 07:09 BMI result Body Mass Index 34.3 Const: General: no acute distress, alert and awake Eyes: Sclerae: sclerae normal EOM: EOMs intact bilaterally Neck: Neck: Yes no lymphadenopathy, Yes trachea midline and Yes supple Resp: Effort & Inspection: normal respiratory effort and no respiratory distress Auscultation: clear to auscultation bilaterally Cardio: Rate: tachycardic Rhythm: regular rhythm Heart sounds: no gallops, no murmurs and no rubs GI: Palpation (GI): Soft to palpation and Other GI palpation findings present ( Nontender) Auscultation: normal bowel sounds Extrem: General: Yes no pedal edema, No clubbing and No cyanosis Procedures Date of Service Date of Service: 10/25/23 Assessment and Plan Assessment and plan (1) Pulmonary hypertension: Status: Acute (2) Respiratory failure with hypoxia and hypercapnia: Status: Acute Plan Impression: 88-year-old lady with underlying pulmonary hypertension secondary to severe mitral stenosis admitted with chest pain and acute hypoxic/hypercapnic respiratory failure. Respiratory failure has resolved. Patient has been titrated off supplemental oxygen. Recommendations: Consider further judicious diuresis. Time Spent With Patient Time: Total time managing care of this patient today ____ minutes. Progress Note: Quality Stroke Does the patient have a stroke diagnosis?: No
--- NOTE | 2023-10-25 10:13 | PM.PNCARD ---
Subjective Subjective Date of Service: 10/25/23 Interval history: Patient states that she feels okay. She does not have any exertional symptoms but apparently was getting some acid reflux type discomfort after eating. Not clear if it is truly acid reflux or anginal. Review of Systems Review of Systems Yes all other systems are reviewed and are negative Constitutional: Reports as per HPI and Reports no additional constitutional complaints Eyes: Reports as per HPI and Denies no additional eye complaints Denies system reviewed and no additional complaints, except as documented and Reports as per HPI Cardiovascular: Reports as per HPI, Reports no additional cardiovascular complaints, Denies acrocyanosis, Denies cool extremities, Denies chest pain, Denies leg edema, Denies lightheadedness, Denies palpitations and Denies dyspnea Respiratory: Reports as per HPI, Denies no additional respiratory complaints and Denies dyspnea Gastrointestinal: Reports as per HPI and Denies no additional gastrointestinal complaints Genitourinary: Reports as per HPI Musculoskeletal: Reports no additional musculoskeletal complaints and Reports as per HPI Skin/Breast: Reports system reviewed and no additional complaints, except as docu Reports system reviewed and no additional complaints, except as documented and Reports as per HPI Psychiatric: Reports no additional psychiatric complaints and Reports as per HPI Endocrine: Reports no additional endocrine complaints, Reports as per HPI and Denies palpitations Hematologic/Lymphatic: Reports no additional hematologic/lymphatic complaints and Reports as per HPI Allergic/Immunologic: Reports no additional allergic/immunologic complaints and Reports as per HPI Physical Exam Vital Signs: Last Vital Signs Temp 97.4 F 10/25/23 07:09 Pulse 100 10/25/23 07:09 Resp 18 10/25/23 07:09 BP 119/56 L 10/25/23 07:09 Pulse Ox 100 10/25/23 07:09 O2 Del Method Nasal Cannula 10/25/23 07:09 O2 Flow Rate 1 10/25/23 07:09 BMI result Body Mass Index 34.3 Const General: comfortable and no acute distress Orientation/consciousness: patient oriented x3 HEENT Other: Unremarkable Head: Yes normal to inspection Neck Neck: Yes normal visual inspection Chest Chest palpation & inspection: normal inspection of the chest Resp Auscultation: clear to auscultation bilaterally Cardio Palpation: normal PMI Heart sounds: S1 normal heart sound present, S2 normal heart sound present, no gallops, no murmurs and no rubs GI Palpation (GI): Soft to palpation Back/Spine/Pelvis Other: unremarkable Skin General skin exam: no rashes or lesions noted Neuro General: patient oriented x3 Extrem General: Yes normal to inspection Psych Mental Status: mental status grossly normal Objective Labs and Meds 10/24/23 05:24 10/25/23 06:17 Lab results: Laboratory Results - last 24 hr 10/24/23 10/24/23 10/24/23 11:38 16:28 20:07 Hold Purple Top Sodium 123 L 123 L 122 L Potassium Chloride Carbon Dioxide Anion Gap BUN Creatinine Estim Creat Clear Calc Estimated GFR Random Glucose Calcium TSH Random Cortisol Urine Osmolality 264 L Ur Random Sodium 69.0 10/25/23 06:17 Hold Purple Top SEE NOTE Sodium 124 L Potassium 4.3 Chloride 86 L Carbon Dioxide 32 H Anion Gap 10 L BUN 34 H Creatinine 1.39 Estim Creat Clear Calc 25.0 Estimated GFR 36 Random Glucose 91 Calcium 9.2 TSH 4.56 H Random Cortisol 10.3 Urine Osmolality Ur Random Sodium Imaging Radiologist's impression: Impressions Venous Duplex 10/24/23 10:30 IMPRESSION: No DVT demonstrated in the bilateral lower extremity. Progress Note: A&P Assessment and plan (1) NSTEMI (non-ST elevated myocardial infarction): Status: Acute Plan High sensitivity troponin levels are 47.5 followed by 260. Most recently 802. This is suggestive of non ST elevation myocardial infarction. In the initial EKG, there was inferior and lateral ST depression but improved in subsequent EKG. Recent echocardiogram with LVEF of 60-65%; severe calcific mitral stenosis/[id number] mitral regurgitation. Severe pulmonary hypertension; Will repeat for EF/Walll motion due to troponin bump. Otherwise, labs show hyponatremia and hyperkalemia. She seems to be on subcutaneous Lovenox and agree with that. Also on aspirin. Statins. With her age and co-morbidities, borderline candidate for cath. To be decided. Time Spent With Patient Time: Total time managing care of this patient today ____ minutes. Progress Note: Quality Stroke Does the patient have a stroke diagnosis?: No Procedures Date of Service Date of Service: 10/25/23
--- NOTE | 2023-10-25 12:23 | P.PNIM_ITS ---
Subjective Subjective Date of Service: 10/25/23 Interval History: f/u on acute hypoxic respiratoy failure, heart failure, hyponatremia, and encephalopathy interval history: she feels better, no sob, feells tired in general, lucid. According to her daughter at bedside, she was fairly independent, living, alone, driving until last hospitalization < 2 weeks ago Physical Exam 2 Vital Signs: Vital Signs: Last Vital Signs Temp 96.6 F L 10/25/23 10:53 Pulse 86 10/25/23 10:53 Resp 20 10/25/23 10:53 BP 110/53 L 10/25/23 10:53 Pulse Ox 96 10/25/23 10:53 O2 Del Method Room Air 10/25/23 10:53 O2 Flow Rate 1 10/25/23 07:09 BMI result Body Mass Index 34.3 Const: Other: General: AO X 3, no acute distress Resp: CTA bilateral CVS: S1,S2,RRR, 1 + leg edema GI: +BS, NT, no distention Skin: No rash Neuro: motor grossly intact Psych: appropriate affect Objective Data Active Medications Acetaminophen (Acetaminophen 325 Mg Tablet) 975 mg PO Q6H PRN PRN Reason: mild pain, headache or fever Alprazolam (Alprazolam 0.25 Mg Tablet) 0.25 mg PO DAILY PRN PRN Reason: Anxiety Last Admin: 10/24/23 20:58 Dose: 0.25 mg Documented By: YAIMA Amlodipine Besylate (Amlodipine Besylate 2.5 Mg Tablet) 2.5 mg PO BEDTIME [facility]; Protocol Last Admin: 10/24/23 20:11 Dose: 2.5 mg Documented By: YAIMA Aspirin (Aspirin Enteric Coated 81 Mg Tablet.) 81 mg PO DAILY [facility] Last Admin: 10/25/23 09:01 Dose: 81 mg Documented By: ALESSANDRA Atorvastatin Calcium (Atorvastatin Calcium 20 Mg Tablet) 20 mg PO BEDTIME [facility] Last Admin: 10/24/23 20:11 Dose: 20 mg Documented By: YAIMA Cilostazol (Cilostazol 50 Mg Tablet) 50 mg PO BID [facility] Last Admin: 10/25/23 09:01 Dose: 50 mg Documented By: ALESSANDRA Enoxaparin Sodium (Enoxaparin Sodium 60 Mg/0.6 Ml Syringe) 60 mg 1 mg/kg (60 mg) SUBCUT Q24H [facility] Last Admin: 10/25/23 09:01 Dose: 60 mg Documented By: ALESSANDRA Furosemide (Furosemide 40 Mg/4 Ml Vial) 40 mg IVPUSH DAILY [facility]; Protocol Last Admin: 10/25/23 09:01 Dose: 40 mg Documented By: ALESSANDRA Labetalol HCl (Labetalol Hcl 100 Mg Tablet) 100 mg PO BID [facility]; Protocol Last Admin: 10/25/23 09:01 Dose: 100 mg Documented By: ALESSANDRA Levothyroxine Sodium (Levothyroxine Sodium 50 Mcg Tablet) 50 mcg PO DAILY@0600 [facility] Last Admin: 10/25/23 05:34 Dose: 50 mcg Documented By: YAIMA Loratadine (Loratadine 10 Mg Tablet) 10 mg PO BEDTIME [facility] Last Admin: 10/24/23 20:11 Dose: 10 mg Documented By: YAIMA Melatonin (Melatonin 3 Mg Tablet) 3 mg PO BEDTIME PRN PRN Reason: Sleep Last Admin: 10/24/23 20:58 Dose: 3 mg Documented By: YAIMA Omeprazole (Omeprazole 20 Mg Capsule.) 20 mg PO DAILY@0630 [facility] Last Admin: 10/25/23 05:34 Dose: 20 mg Documented By: YAIMA Sodium Chloride (0.9 % Sodium Chloride Flush 3 Ml Syringe) 3 ml IVFLUSH QSHIFT [facility] Last Admin: 10/25/23 09:02 Dose: 3 ml Documented By: ALESSANDRA Vitamin D (Cholecalciferol (Vitamin D3) 25 Mcg Tablet) 50 mcg PO DAILY [facility] Last Admin: 10/25/23 09:01 Dose: 50 mcg Documented By: ALESSANDRA Labs 10/24/23 05:24 10/25/23 06:17 Labs: Laboratory Results - last 24 hr 10/25/23 06:17 Hold Purple Top SEE NOTE Anion Gap 10 L Estim Creat Clear Calc 25.0 Estimated GFR 36 Random Glucose 91 Calcium 9.2 TSH 4.56 H Random Cortisol 10.3 Microbiology Microbiology Results: Microbiology 10/24/23 01:08 Blood Culture - Preliminary Blood - Venous No growth after 24 hours. 10/24/23 01:08 Blood Culture - Preliminary Blood - Venous No growth after 24 hours. Assessment and Plan (1) Respiratory failure with hypoxia and hypercapnia: Status: Acute (2) Acute hyponatremia: Status: Acute (3) Hypertensive urgency: Status: Acute Plan 88/F with restrictive mingo disease, Copd, pulmonoary HTN, HTN, CKD here with acute hypoxic resp failure, hyponatremia Hypoxic and hypercapnic respiratory failure likely multifactorial: Possible underlying SHERMAN, underlying COPD, heart failure and acute NSTEMI, NSTEMI. Hypoxia has resolved. -continue treatment for heart failure, NSTEMI, CXR fidning are padmini refelective on PNA, repeat CXR. Pulmonology consult noted. Acute encephalopathy likely d/t hypoxia and Hyponatremia, seems at her baseline. NSTEMI -- medical management with BB,ASA, Statin and Levenox for 48 hours, echo today. Cardiology to make recommendation for further management including the posibility of cardiac cath Hypervolemic hyponatremia, likely secondary to heart failure--sodium level is steadily rising, continue following, Nephrology following, water restriction. Hyperkalemia. resolved, hold Valsartan CKD, stage 3B. Stable HTN Continue labetalol amlodipine. holding Valsartan (BP on lower side) Hyperlipidemia. Continue statin. Anxiety and depression. hold Lexapro can make hyponatremia worse Hypothyroidism. TSH slightly high, Continue levothyroxine. GERD. Continue PPI. Code status: DNR DNI DVT prophylaxis: Heparin need for inaptient: acute hypoxic resp failure, heart failyre, severe hyponatermia, needs close monitoring, repeat labs. Son is HCP, but patient wants daughter Anaid to alternate Total time managing care of this patient today: 30 minutes. Quality Stroke Does the patient have a stroke diagnosis?: No VTE Prior VTE?: No VTE Risk Level:: Medical - moderate - high VTE Device Contraindication: N/A - Device Ordered VTE Drug Contraindication: N/A - Med Ordered
[2023-10-25 12:34] LABS: MANUAL DIFF FLAG NO
[2023-10-25 12:38] LABS: Basophils Percent Auto 0.5 % (0-2); Eosinophils Absolute Auto 0.2 X10*3/uL (0.0-0.4); Eosinophils Percent Auto 2.7 % (0-4); Hematocrit 31.3 % (37.0-47.0); Imm Gran Abs Auto 0.02 X10*3/uL (0.00-0.03); Imm Gran Pct Auto 0.3 % (0.0-0.4); Lymphocytes Absolute Auto 0.9 X10*3/uL (1.2-4.9); Lymphocytes Percent Auto 11.7 % (20-40); Mean Corpuscular HGB Conc 35.1 g/dl (31.0-35.0); Mean Corpuscular Hemoglobin 30.6 pg (27.0-33.0); Mean Corpuscular Volume 87.2 fL (80.0-98.0); Mean Platelet Volume 11.1 fL (9.4-12.3); Monocytes Percent Auto 12.9 % (2-11); Neutrophils Absolute Auto 5.3 x10*3/uL (2.0-8.3); Neutrophils Percent Auto 71.9 % (45-73); Platelet Count 207 X10*3/uL (160-400); Red Blood Count 3.59 X10*6/uL (4.20-5.50); White Blood Count 7.4 X10*3/uL (4.8-10.8)
--- NOTE | 2023-10-25 17:56 | PC.NURSE ---
oxygen saturation down to 70's % with sleep , Oxygen 2 l vi a NC applied, oxygen saturation 96% .
[2023-10-25] MEDS: Melatonin 3 MG TABLET PO (21:15)
[2023-10-25] MEDS: ALPRAZolam 0.25 MG TABLET PO (21:15)
[2023-10-25] MEDS: Loratadine 10 MG TABLET PO (21:16)
[2023-10-25] MEDS: Atorvastatin Calcium 20 MG TABLET PO (21:16)
[2023-10-25] MEDS: amLODIPine Besylate 2.5 MG TABLET PO (21:16)
[2023-10-26] VITALS (10 sets, daily range): BP systolic 98–137; BP diastolic 50–62; PULSE 80–106; RESP 18–20; TEMP 36.2–37.4; O2SAT 2–99
[2023-10-26] MEDS: Levothyroxine Sodium 50 MCG TABLET PO (05:07)
[2023-10-26] MEDS: Omeprazole 20 MG CAPSULE.DR PO (05:07)
[2023-10-26] MEDS: Acetaminophen 325 MG TABLET 975 MG PO (05:07)
[2023-10-26 06:59] LABS: Anion Gap 14 (12-20); Blood Urea Nitrogen 34 mg/dL (9-16); Calcium 8.6 mg/dL (8.4-10.2); Carbon Dioxide 27 mmol/L (22-29); Chloride 87 mmol/L (96-108); Creatinine Clr Calc Pharmacy 25.9; Estimated Glomerular Filt Rate 37; Glucose Random 104 mg/dL (60-115); Potassium 4.3 mmol/L (3.3-5.1); Sodium 124 mmol/L (135-145)
[2023-10-26] MEDS: Furosemide 40 MG/4 ML VIAL IVPUSH (08:54)
[2023-10-26] MEDS: Aspirin Enteric Coated 81 MG TABLET.DR PO (08:55)
[2023-10-26] MEDS: Cholecalciferol (Vitamin D3) 25 MCG TABLET 50 MCG PO (08:55)
[2023-10-26] MEDS: Labetalol HCL 100 MG TABLET PO ×2 (08:55→22:24)
[2023-10-26] MEDS: Enoxaparin Sodium 60 MG/0.6 ML SYRINGE SUBCUT (08:55)
[2023-10-26] MEDS: cilostazoL 50 MG TABLET PO ×2 (08:55→22:24)
[2023-10-26] MEDS: 0.9 % Sodium Chloride Flush 3 ML SYRINGE IVFLUSH ×2 (08:56→22:25)
--- NOTE | 2023-10-26 09:33 | P.PNIM_ITS ---
Subjective Subjective Date of Service: 10/26/23 Interval History: f/u on acute hypoxic respiratoy failure, heart failure, hyponatremia, and encephalopathy and NSTEMI interval history: She is lucid, feels better, no sob, and has been sleeping well. Has no chest pain Physical Exam 2 Vital Signs: Vital Signs: Last Vital Signs Temp 97.1 F 10/26/23 07:56 Pulse 82 10/26/23 07:56 Resp 20 10/26/23 07:56 BP 129/60 10/26/23 07:56 Pulse Ox 98 10/26/23 07:56 O2 Del Method Nasal Cannula 10/26/23 07:56 O2 Flow Rate 2 10/26/23 07:56 BMI result Body Mass Index 34.3 Const: Other: General: AO X 3, no acute distress Resp: CTA bilateral CVS: S1,S2,RRR, 1 + leg edema GI: +BS, NT, no distention Skin: No rash Neuro: motor grossly intact Psych: appropriate affect Objective Data Active Medications Acetaminophen (Acetaminophen 325 Mg Tablet) 975 mg PO Q6H PRN PRN Reason: mild pain, headache or fever Last Admin: 10/26/23 05:07 Dose: 975 mg Documented By: KASSANDRA Alprazolam (Alprazolam 0.25 Mg Tablet) 0.25 mg PO DAILY PRN PRN Reason: Anxiety Last Admin: 10/25/23 21:15 Dose: 0.25 mg Documented By: KASSANDRA Amlodipine Besylate (Amlodipine Besylate 2.5 Mg Tablet) 2.5 mg PO BEDTIME COUNT INCLUDES THE [facility]; Protocol Last Admin: 10/25/23 21:16 Dose: 2.5 mg Documented By: KASSANDRA Aspirin (Aspirin Enteric Coated 81 Mg Tablet.Dr) 81 mg PO DAILY COUNT INCLUDES THE [facility] Last Admin: 10/26/23 08:55 Dose: 81 mg Documented By: ALESSANDRA Atorvastatin Calcium (Atorvastatin Calcium 20 Mg Tablet) 20 mg PO BEDTIME COUNT INCLUDES THE [facility] Last Admin: 10/25/23 21:16 Dose: 20 mg Documented By: KASSANDRA Cilostazol (Cilostazol 50 Mg Tablet) 50 mg PO BID COUNT INCLUDES THE [facility] Last Admin: 10/26/23 08:55 Dose: 50 mg Documented By: ALESSANDRA Enoxaparin Sodium (Enoxaparin Sodium 60 Mg/0.6 Ml Syringe) 60 mg 1 mg/kg (60 mg) SUBCUT Q24H COUNT INCLUDES THE [facility] Last Admin: 10/26/23 08:55 Dose: 60 mg Documented By: ALESSANDRA Furosemide (Furosemide 40 Mg/4 Ml Vial) 40 mg IVPUSH DAILY COUNT INCLUDES THE [facility]; Protocol Last Admin: 10/26/23 08:54 Dose: 40 mg Documented By: ALESSANDRA Labetalol HCl (Labetalol Hcl 100 Mg Tablet) 100 mg PO BID COUNT INCLUDES THE [facility]; Protocol Last Admin: 10/26/23 08:55 Dose: 100 mg Documented By: ALESSANDRA Levothyroxine Sodium (Levothyroxine Sodium 50 Mcg Tablet) 50 mcg PO DAILY@0600 COUNT INCLUDES THE [facility] Last Admin: 10/26/23 05:07 Dose: 50 mcg Documented By: KASSANDRA Loratadine (Loratadine 10 Mg Tablet) 10 mg PO BEDTIME COUNT INCLUDES THE [facility] Last Admin: 10/25/23 21:16 Dose: 10 mg Documented By: KASSANDRA Melatonin (Melatonin 3 Mg Tablet) 3 mg PO BEDTIME PRN PRN Reason: Sleep Last Admin: 10/25/23 21:15 Dose: 3 mg Documented By: KASSANDRA Omeprazole (Omeprazole 20 Mg Capsule.Dr) 20 mg PO DAILY@0630 COUNT INCLUDES THE [facility] Last Admin: 10/26/23 05:07 Dose: 20 mg Documented By: KASSANDRA Sodium Chloride (0.9 % Sodium Chloride Flush 3 Ml Syringe) 3 ml IVFLUSH QSHIFT COUNT INCLUDES THE [facility] Last Admin: 10/26/23 08:56 Dose: 3 ml Documented By: ALESSANDRA Vitamin D (Cholecalciferol (Vitamin D3) 25 Mcg Tablet) 50 mcg PO DAILY COUNT INCLUDES THE [facility] Last Admin: 10/26/23 08:55 Dose: 50 mcg Documented By: ALESSANDRA Labs 10/25/23 06:17 10/26/23 06:34 Labs: Laboratory Results - last 24 hr 10/25/23 10/26/23 06:17 06:34 MCV 87.2 MCH 30.6 MCHC 35.1 H RDW 12.0 Plt Count 207 MPV 11.1 Immature Gran % (Auto) 0.3 Neut % (Auto) 71.9 Lymph % (Auto) 11.7 L [place] % (Auto) 12.9 H Eos % (Auto) 2.7 Baso % (Auto) 0.5 Lymph # (Auto) 0.9 L [place] # (Auto) 1.0 Eos # (Auto) 0.2 Baso # (Auto) 0.0 Abs Immat Gran (auto) 0.02 Absolute Neuts (auto) 5.3 Absolute Nucleated RBC 0.000 Nucleated RBC % (auto) 0.0 Anion Gap 14 Estim Creat Clear Calc 25.9 Estimated GFR 37 Random Glucose 104 Calcium 8.6 D Microbiology Microbiology Results: Microbiology 10/24/23 01:08 Blood Culture - Preliminary Blood - Venous No growth after 48 hours. 10/24/23 01:08 Blood Culture - Preliminary Blood - Venous No growth after 48 hours. Assessment and Plan (1) Respiratory failure with hypoxia and hypercapnia: Status: Acute (2) Acute hyponatremia: Status: Acute (3) Hypertensive urgency: Status: Acute Plan 88/F with restrictive mingo disease, Copd, pulmonoary HTN, HTN, CKD here with acute hypoxic resp failure, hyponatremia, NSTEMI Acute Hypoxic and hypercapnic respiratory failure likely multifactorial: Possible underlying SHERMAN, underlying COPD, heart failure and acute NSTEMI. Hypoxia resolved. -continue treatment for heart failure, NSTEMI, CXR fidning are padmini refelective on PNA, repeat CXR. Pulmonology consult noted. Acute encephalopathy likely d/t hypoxia and Hyponatremia--resolved, at baseline NSTEMI -- medical management with BB,ASA, Statin and Levenox for 48 stop today, echo 10/24 EF> 70 and no RWMA. Cardiology to make recommendation on further management including the posibility of cardiac cath Hypervolemic hyponatremia, likely secondary to heart failure--sodium level is steadily rising, continue following, Nephrology following, water restriction. Hyperkalemia. resolved, hold Valsartan Acute HFpEF--continue IV Kasux CKD, stage 3B. Stable HTN Continue labetalol amlodipine. holding Valsartan (BP on lower side) Hyperlipidemia. Continue statin. Anxiety and depression. holding Lexapro can make hyponatremia worse. Psych consult for different med Hypothyroidism. TSH slightly high, Continue levothyroxine. GERD. Continue PPI. SHERMAN, needs sleep study Code status: DNR DNI DVT prophylaxis: Heparin need for inaptient: acute hypoxic resp failure, heart failyre, severe hyponatermia, needs close monitoring, repeat labs. Son is HCP, but patient wants daughter Anaid to alternate PT eval tomorrow plan discussed with daughter at bedside and son Joey (over the phone) Total time managing care of this patient today: 30 minutes. Quality Stroke Does the patient have a stroke diagnosis?: No VTE Prior VTE?: No VTE Risk Level:: Medical - moderate - high VTE Device Contraindication: N/A - Device Ordered VTE Drug Contraindication: N/A - Med Ordered
[2023-10-26] MEDS: Urea 15 GM POWDER 30 GM PO (10:57)
--- NOTE | 2023-10-26 11:04 | P.PNCA_ITS ---
Subjective Subjective Date of Service: 10/26/23 Interval history: Patient states that she feels okay. Was having acid reflux type symptoms last few weeks, but not clear if that is GI or anginal. Review of Systems Review of Systems Yes all other systems are reviewed and are negative Constitutional: Reports as per HPI and Reports no additional constitutional complaints Eyes: Reports as per HPI and Denies no additional eye complaints Denies system reviewed and no additional complaints, except as documented and Reports as per HPI Cardiovascular: Reports as per HPI, Reports no additional cardiovascular complaints, Denies acrocyanosis, Denies cool extremities, Denies chest pain, Denies leg edema, Denies lightheadedness, Denies palpitations and Denies dyspnea Respiratory: Reports as per HPI, Denies no additional respiratory complaints and Denies dyspnea Gastrointestinal: Reports as per HPI and Denies no additional gastrointestinal complaints Genitourinary: Reports as per HPI Musculoskeletal: Reports no additional musculoskeletal complaints and Reports as per HPI Skin/Breast: Reports system reviewed and no additional complaints, except as docu Reports system reviewed and no additional complaints, except as documented and Reports as per HPI Psychiatric: Reports no additional psychiatric complaints and Reports as per HPI Endocrine: Reports no additional endocrine complaints, Reports as per HPI and Denies palpitations Hematologic/Lymphatic: Reports no additional hematologic/lymphatic complaints and Reports as per HPI Allergic/Immunologic: Reports no additional allergic/immunologic complaints and Reports as per HPI Physical Exam Vital Signs: Last Vital Signs Temp 98.0 F 10/26/23 11:01 Pulse 80 10/26/23 11:01 Resp 20 10/26/23 11:01 BP 121/58 L 10/26/23 11:01 Pulse Ox 97 10/26/23 11:01 O2 Del Method Nasal Cannula 10/26/23 11:01 O2 Flow Rate 22 10/26/23 11:01 BMI result Body Mass Index 34.3 Const General: comfortable and no acute distress Orientation/consciousness: patient oriented x3 HEENT Other: Unremarkable Head: Yes normal to inspection Neck Neck: Yes normal visual inspection Chest Chest palpation & inspection: normal inspection of the chest Resp Auscultation: clear to auscultation bilaterally Cardio Palpation: normal PMI Heart sounds: S1 normal heart sound present, S2 normal heart sound present, no gallops, no murmurs and no rubs GI Palpation (GI): Soft to palpation Back/Spine/Pelvis Other: unremarkable Skin General skin exam: no rashes or lesions noted Neuro General: patient oriented x3 Extrem General: Yes normal to inspection Psych Mental Status: mental status grossly normal Objective Labs and Meds 10/25/23 06:17 10/26/23 06:34 Lab results: Laboratory Results - last 24 hr 10/25/23 10/26/23 06:17 06:34 WBC 7.4 RBC 3.59 L Hgb 11.0 L Hct 31.3 L MCV 87.2 MCH 30.6 MCHC 35.1 H RDW 12.0 Plt Count 207 MPV 11.1 Immature Gran % (Auto) 0.3 Neut % (Auto) 71.9 Lymph % (Auto) 11.7 L [place] % (Auto) 12.9 H Eos % (Auto) 2.7 Baso % (Auto) 0.5 Lymph # (Auto) 0.9 L [place] # (Auto) 1.0 Eos # (Auto) 0.2 Baso # (Auto) 0.0 Abs Immat Gran (auto) 0.02 Absolute Neuts (auto) 5.3 Absolute Nucleated RBC 0.000 Nucleated RBC % (auto) 0.0 Sodium 124 L Potassium 4.3 Chloride 87 L Carbon Dioxide 27 Anion Gap 14 BUN 34 H Creatinine 1.34 Estim Creat Clear Calc 25.9 Estimated GFR 37 Random Glucose 104 Calcium 8.6 D Imaging Radiologist's impression: Impressions Chest X-Ray 10/25/23 14:00 IMPRESSION: 1. Improved pulmonary aeration with decreased bibasilar airspace opacities and decreased interstitial thickening. 2. Similar to slightly decreased trace bilateral pleural effusions. 3. No new focal airspace densities. Progress Note: A&P Assessment and plan (1) NSTEMI (non-ST elevated myocardial infarction): Status: Acute Plan High sensitivity troponin levels are 47.5 followed by 260. Most recently 802. This is suggestive of non ST elevation myocardial infarction. In the initial EKG, there was inferior and lateral ST depression but improved in subsequent EKG. Recent echocardiogram with LVEF of 60-65%; severe calcific mitral stenosis/[id number] mitral regurgitation. Severe pulmonary hypertension; Repeat limited study with normal LVEF;no WMA. Otherwise, labs show hyponatremia and hyperkalemia. Currently Na is 124. With regard to the non ST elevation myocardial infarction, discussed at length with family today. Daughter was at the bedside and son was on speaker phone. We discussed 2 options including conservative care with only medications versus a diagnostic catheterization. Explained the benefits and risks of both. Main concern is advanced age. Additionally, she is having hyponatremia. After long discussion, we did not conclusively decide either way as patient is still unsure about this. We can keep Lovenox for total of 48 hours. Aspirin/statins. Hyponatremia will need to be normalized before considering diagnostic catheterization even if she agrees. We will follow-up with you. Discussed with Dr. Merrill. Time Spent With Patient Time: Total time managing care of this patient today 60 minutes. This includes time spent in review of chart, laboratory data, imaging studies, review of telemetry, counseling patient, family, discussion with hospitalist, RN, documentation, coordination of care. Progress Note: Quality Stroke Does the patient have a stroke diagnosis?: No Procedures Date of Service Date of Service: 10/26/23
--- NOTE | 2023-10-26 11:44 | PM.PSYCN ---
History of Present Illness Date of Service: 10/26/23 Chief Complaint: Hypoxic and hypercapnic respiratory failure Reason for Consult: SSRIs/hyponatremia Requesting physician: Carter Merrill Discussed with referring provider: Yes (In person) Sources of Information: patient interviewed and chart reviewed Additional Sources of Information: Patient's daughter HPI Narrative: Effie Aleman is a very pleasant 88 years old woman with past medical history significant for restrictive lung disease, pulmonary emphysema, hypothyroidism, HFpEF and hypertension was brought to the emergency department complaining of worsening retrosternal chest pain and some shortness on breath. Patient did not report wheezing, cough, fever or chills. She complains of mild edema to the lower extremities. Patient's daughter was at bedside and contributed with the HPI. She was recently admitted to the hospital with diagnosis of hypertensive urgency. Daughter mentioned that since the patient's seems very somnolent and weak. Daughter also mentioned that the patient snores most of time. Patient has been taking Xanax at home. Patient denied gastrointestinal or genitourinary changes. She is a former tobacco smoker and smoked for 50 years. Denied alcohol abuse or illicit drug use. In the ED, the patient was found to have low O2 sats, 80% and was placed on 4L/min (we decreased to 2L/min to avoid CO2 retention). She also was found to have tachypnea and tachycardia. Temperature is normal. Blood workup is remarkable for mild leukocytosis 11.4. There is no lactic acidosis. Hemoglobin and platelets are normal. VBG showed low pH of 7.31 and PCO2 59. There is hyponatremia 121, hyperkalemia of 5.2 and glucose 148. Troponin is 47.5 and BNP 204. CXR showed bilateral basilar opacities -pneumonia is not excluded edema. ECG showed LVH changes and sinus tachycardia (HR 107), ST elevation in lead III and ST depression in lateral leads According to the patient and her daughter she lost her 2 and half years ago and has been anxious and depressed since then with some irritability and see about 4-6 months ago she was referred for outpatient therapy which is done on the phone and she also saw a nurse practitioner who put her on Lexapro 5 mg which was increased to 10 and she was not sure that it was being helpful and then it went down to 5 mg, stopped for a short time and resumed recently at 5 mg and that has when the hyponatremia was observed. She also has been having trouble sleeping and has been given Xanax melatonin here. In the past she has tried trazodone 50 mg with minimal benefits. No history of substance abuse. No history of psychiatric hospitalizations. No suicidal ideations. Past Psychiatric History: None except for some outpatient treatment in the past several months Medical Evaluation Reviewed: Yes Personal & Social History: Effie has been for 2-1/2 years and was for many years with 4 children, 3 of whom live locally and are very supportive. She lives on her own and is still quite independent including driving. Review of Systems Review of Systems Yes all other systems are reviewed and are negative [facility] Medical History Restrictive lung disease COVID-19 vaccine series completed Heartburn Hypothyroid PVD (peripheral vascular disease) HTN (hypertension) Cough Allergic rhinitis Surgical History Hx of tonsillectomy Hx of excision of mass H/O colonoscopy Diagnostics Vital Signs (24Hr): Vital Signs - 24 hr 10/25/23 15:04 10/25/23 20:00 10/25/23 21:14 Temperature 97.3 F 97.8 F Pulse Rate 90 94 94 Respiratory Rate 20 18 Blood Pressure 101/53 L 124/50 L 124/50 L Pulse Oximetry 98 100 Oxygen Delivery Method Nasal Cannula Nasal Cannula Oxygen Flow Rate 2 2 10/25/23 21:16 10/26/23 00:00 10/26/23 03:20 Temperature 97.8 F 98.7 F Pulse Rate 93 89 Respiratory Rate 20 18 Blood Pressure 124/50 L 137/62 121/59 L Pulse Oximetry 99 97 Oxygen Delivery Method Nasal Cannula Nasal Cannula Oxygen Flow Rate 2 2 10/26/23 07:56 10/26/23 11:01 Temperature 97.1 F 98.0 F Pulse Rate 82 80 Respiratory Rate 20 20 Blood Pressure 129/60 121/58 L Pulse Oximetry 98 97 Oxygen Delivery Method Nasal Cannula Nasal Cannula Oxygen Flow Rate 2 22 BMI result Body Mass Index 34.3 Labs 10/25/23 06:17 10/26/23 06:34 Labs: Laboratory Results - last 48 hr 06/14/24 06/14/24 06/14/24 11:38 16:28 20:07 WBC RBC Hgb Hct MCV MCH MCHC RDW Plt Count MPV Immature Gran % (Auto) Neut % (Auto) Lymph % (Auto) [place] % (Auto) Eos % (Auto) Baso % (Auto) Lymph # (Auto) [place] # (Auto) Eos # (Auto) Baso # (Auto) Abs Immat Gran (auto) Absolute Neuts (auto) Absolute Nucleated RBC Nucleated RBC % (auto) Hold Purple Top Sodium 123 L 123 L 122 L Potassium Chloride Carbon Dioxide Anion Gap BUN Creatinine Estim Creat Clear Calc Estimated GFR Random Glucose Calcium TSH Random Cortisol Urine Osmolality 264 L Ur Random Sodium 69.0 10/25/23 10/26/23 06:17 06:34 WBC 7.4 RBC 3.59 L Hgb 11.0 L Hct 31.3 L MCV 87.2 MCH 30.6 MCHC 35.1 H RDW 12.0 Plt Count 207 MPV 11.1 Immature Gran % (Auto) 0.3 Neut % (Auto) 71.9 Lymph % (Auto) 11.7 L [place] % (Auto) 12.9 H Eos % (Auto) 2.7 Baso % (Auto) 0.5 Lymph # (Auto) 0.9 L [place] # (Auto) 1.0 Eos # (Auto) 0.2 Baso # (Auto) 0.0 Abs Immat Gran (auto) 0.02 Absolute Neuts (auto) 5.3 Absolute Nucleated RBC 0.000 Nucleated RBC % (auto) 0.0 Hold Purple Top SEE NOTE Sodium 124 L 124 L Potassium 4.3 4.3 Chloride 86 L 87 L Carbon Dioxide 32 H 27 Anion Gap 10 L 14 BUN 34 H 34 H Creatinine 1.39 1.34 Estim Creat Clear Calc 25.0 25.9 Estimated GFR 36 37 Random Glucose 91 104 Calcium 9.2 8.6 D TSH 4.56 H Random Cortisol 10.3 Urine Osmolality Ur Random Sodium Imaging Radiology Impressions: ITS Impressions Chest X-Ray 10/23/23 22:18 IMPRESSION: Bibasilar opacities, new from the prior study for which developing pneumonia is not excluded. There is advanced emphysema. Venous Duplex 10/24/23 10:30 IMPRESSION: No DVT demonstrated in the bilateral lower extremity. Chest X-Ray 10/25/23 14:00 IMPRESSION: 1. Improved pulmonary aeration with decreased bibasilar airspace opacities and decreased interstitial thickening. 2. Similar to slightly decreased trace bilateral pleural effusions. 3. No new focal airspace densities. Mental Status Exam Mental Status Exam Narrative: In today's visit she is alert, oriented. Speech is normal. Good eye contact. Affect is appropriate and varied. She is able to give adequate information with good reliability. No signs of psychosis. Cognitively she is intact to observation and actually quite sharp for her age. No SI. Judgment is intact Medications Medications Current Medications Acetaminophen (Acetaminophen 325 Mg Tablet) 975 mg PO Q6H PRN PRN Reason: mild pain, headache or fever Last Admin: 10/26/23 05:07 Dose: 975 mg Alprazolam (Alprazolam 0.25 Mg Tablet) 0.25 mg PO DAILY PRN PRN Reason: Anxiety Last Admin: 10/25/23 21:15 Dose: 0.25 mg Amlodipine Besylate (Amlodipine Besylate 2.5 Mg Tablet) 2.5 mg PO BEDTIME [facility]; Protocol Last Admin: 10/25/23 21:16 Dose: 2.5 mg Aspirin (Aspirin Enteric Coated 81 Mg Tablet.Dr) 81 mg PO DAILY [facility] Last Admin: 10/26/23 08:55 Dose: 81 mg Atorvastatin Calcium (Atorvastatin Calcium 20 Mg Tablet) 20 mg PO BEDTIME ANKIT Last Admin: 10/25/23 21:16 Dose: 20 mg Cilostazol (Cilostazol 50 Mg Tablet) 50 mg PO BID [facility] Last Admin: 10/26/23 08:55 Dose: 50 mg Enoxaparin Sodium (Enoxaparin Sodium 30 Mg/0.3 Ml Syringe) 30 mg SUBCUT DAILY [facility] Furosemide (Furosemide 40 Mg/4 Ml Vial) 40 mg IVPUSH DAILY [facility]; Protocol Last Admin: 10/26/23 08:54 Dose: 40 mg Labetalol HCl (Labetalol Hcl 100 Mg Tablet) 100 mg PO BID [facility]; Protocol Last Admin: 10/26/23 08:55 Dose: 100 mg Levothyroxine Sodium (Levothyroxine Sodium 50 Mcg Tablet) 50 mcg PO DAILY@0600 [facility] Last Admin: 10/26/23 05:07 Dose: 50 mcg Loratadine (Loratadine 10 Mg Tablet) 10 mg PO BEDTIME ANKIT Last Admin: 10/25/23 21:16 Dose: 10 mg Melatonin (Melatonin 3 Mg Tablet) 3 mg PO BEDTIME PRN PRN Reason: Sleep Last Admin: 10/25/23 21:15 Dose: 3 mg Omeprazole (Omeprazole 20 Mg Capsule.) 20 mg PO DAILY@0630 [facility] Last Admin: 10/26/23 05:07 Dose: 20 mg Sodium Chloride (0.9 % Sodium Chloride Flush 3 Ml Syringe) 3 ml IVFLUSH QSHIFT [facility] Last Admin: 10/26/23 08:56 Dose: 3 ml Vitamin D (Cholecalciferol (Vitamin D3) 25 Mcg Tablet) 50 mcg PO DAILY [facility] Last Admin: 10/26/23 08:55 Dose: 50 mcg Allergies Allergies Allergy/AdvReac Type Severity Reaction Status Date / Time erythromycin base Allergy Intermediate Itching Verified 10/23/23 21:56 [ERYTHROMYCIN BASE] lisinopril Allergy Intermediate throat Verified 10/23/23 21:56 itchy simvastatin [From Zocor] AdvReac Severe Rash Verified 10/23/23 21:56 Assessment & Plan Assessment & Plan (1) Generalized anxiety disorder: Status: Acute Code(s): F41.1 - Generalized anxiety disorder Plan In conclusion based on historical information and correlation with her history of SSRI use I would suggest keeping her off the SSRIs for now and the next couple weeks and once her sodium has normalized to re-evaluate the need and if it is still necessary for something to help with daytime anxiety, irritability to start with another SSRI such as Zoloft at 25 mg which may even be adequate for maintenance dose. All SSRIs can potentially cause hyponatremia. As far as sleep goes maybe re trying trazodone at 75 mg. If she can not tolerate Zoloft either maybe a low-dose lorazepam rather than Xanax such as 0.25 mg may be more advisable since Xanax can have a rebound phenomena and has a shorter half-life. Thank you for the consultation Total time managing care of this patient today _45___ minutes.
--- NOTE | 2023-10-26 15:19 | MHC.CM.PN ---
CM MET WITH PT AND DAUGHTER, AMAN, AT BEDSIDE PT IS CONSIDERING CHANGING HER HCP, HOWEVER CONTINUES TO REPORT SHE WANTS HER SON PRIMARY PTS DAUGHTER IS ENCOURAGING HER TO MAKE HER PRIMARY HER BROTHER SPENDS HALF OF HIS TIME IN [place] PT IS ALSO CONSIDERING CHANGING HER MOLST SHE SAYS SHE WOULD LIKE CPR, BUT NOT INTUBATION SHE WILL DISCUSS THESE DOCUMENTS WITH HER SON AND DAUGHTER AND DECIDE IF SHE IS GOING TO CHANGE THEM SHE IS AWARE CM WILL FOLLOW UP FRIDAY MORNING TO SEE WHAT SHE HAS DECIDED AND ASSIST IN DESIRED CHANGES PT ALSO ASKED ABOUT DOCUMENTS GIVEN TO A PREVIOUS CM. SHE SAYS THEY ARE FOR THE MD TO SIGN SO SHE CAN HAVE [employer] [facility] CM INFORMED THEM THESE PAPERS SHOULD BE SIGNED BY PTS PCP AND THAT CM CAN FAX THEM TO DR DICKERSON'S OFFICE ON FRIDAY
[2023-10-26] MEDS: traZODone HCL 25 MG HALFTAB 75 MG PO (22:22)
[2023-10-26] MEDS: amLODIPine Besylate 2.5 MG TABLET PO (22:23)
[2023-10-26] MEDS: Atorvastatin Calcium 20 MG TABLET PO (22:24)
[2023-10-26] MEDS: Loratadine 10 MG TABLET PO (22:24)
[2023-10-27 04:00] VITALS: BP 117/55; PULSE 91; RESP 20; TEMP 36.8; O2SAT 100
[2023-10-27] MEDS: Omeprazole 20 MG CAPSULE.DR PO (06:02)
[2023-10-27] MEDS: Levothyroxine Sodium 50 MCG TABLET PO (06:02)
[2023-10-27 07:25] LABS: Anion Gap 17 (12-20); Blood Urea Nitrogen 68 mg/dL (9-16); Calcium 9.4 mg/dL (8.4-10.2); Carbon Dioxide 26 mmol/L (22-29); Chloride 88 mmol/L (96-108); Creatinine Clr Calc Pharmacy 24.1; Estimated Glomerular Filt Rate 34; Glucose Random 106 mg/dL (60-115); Potassium 5.1 mmol/L (3.3-5.1); Sodium 126 mmol/L (135-145)
[2023-10-27 08:00] VITALS: BP 125/61; PULSE 90; RESP 16; TEMP 37; O2SAT 98
[2023-10-27] MEDS: Enoxaparin Sodium 30 MG/0.3 ML SYRINGE SUBCUT (09:08)
[2023-10-27 09:09] VITALS: BP 125/61; PULSE 90
[2023-10-27] MEDS: cilostazoL 50 MG TABLET PO ×2 (09:09→21:50)
[2023-10-27] MEDS: Furosemide 40 MG/4 ML VIAL IVPUSH (09:09)
[2023-10-27] MEDS: Aspirin Enteric Coated 81 MG TABLET.DR PO (09:09)
[2023-10-27] MEDS: Labetalol HCL 100 MG TABLET PO ×2 (09:09→21:48)
[2023-10-27] MEDS: Cholecalciferol (Vitamin D3) 25 MCG TABLET 50 MCG PO (09:10)
[2023-10-27] MEDS: 0.9 % Sodium Chloride Flush 3 ML SYRINGE IVFLUSH ×2 (09:10→17:22)
--- NOTE | 2023-10-27 09:46 | PM.PNCARD ---
Subjective Subjective Date of Service: 10/27/23 Principal diagnosis: NSTEMI Interval history: Patient had some chest burning yesterday moving from chair to the bed. No chest burning today at rest. Blood pressure is always remained stable. No shortness of breath. No nausea vomiting diaphoresis. Review of Systems Constitutional: Reports no additional constitutional complaints Eyes: Reports no additional eye complaints Cardiovascular: Reports chest pain, Reports chest pain with activity and Reports dyspnea on exertion Respiratory: Reports dyspnea on exertion Reports system reviewed and no additional complaints, except as documented Endocrine: Reports no additional endocrine complaints Physical Exam Vital Signs: Last Vital Signs Temp 98.6 F 10/27/23 08:00 Pulse 90 10/27/23 09:09 Resp 16 10/27/23 08:00 BP 125/61 10/27/23 09:09 Pulse Ox 98 10/27/23 08:00 O2 Del Method Room Air 10/27/23 08:00 O2 Flow Rate 2 10/27/23 04:00 BMI result Body Mass Index 34.3 Objective Labs and Meds 10/25/23 06:17 10/27/23 06:12 Lab results: Laboratory Results - last 24 hr 10/27/23 06:12 Hold Purple Top SEE NOTE Sodium 126 L Potassium 5.1 Chloride 88 L Carbon Dioxide 26 Anion Gap 17 BUN 68 H Creatinine 1.44 H Estim Creat Clear Calc 24.1 Estimated GFR 34 Random Glucose 106 Calcium 9.4 D Progress Note: A&P Assessment and plan (1) NSTEMI (non-ST elevated myocardial infarction): Status: Acute Assessment and Plan: Patient with NSTEMI with symptoms despite adequate blood controlled at home and symptoms happening at rest. She had recurrent symptoms with minimal activity yesterday. High likelihood of underlying significant coronary artery disease. We discussed about the need for cardiac catheterization to evaluate coronary anatomy to direct therapy and also establish prognosis. We discussed about the risks and benefits. She is extremely anxious about undergoing procedures. I discussed at length the potential risks. We also discussed about benefits versus risk for doing cardiac catheterization to guide therapy. He is possible that she may have surgical disease and may not be a good candidate for revascularization. Although it is possible that she might have culprit lesions that can be palliated with stenting and prevent recurrent hospitalizations. Hold Lasix for today. She is already dual antianginal therapy with amlodipine and labetalol with very limited room to uptitrate medication due to low blood pressure. Continue aspirin and high-intensity statin therapy. Overall prognosis is guarded. Will continue to follow with you Time Spent With Patient Time: Total time managing care of this patient today ____ minutes. Progress Note: Quality Stroke Does the patient have a stroke diagnosis?: No Procedures Date of Service Date of Service: 10/27/23
[2023-10-27] MEDS: LORazepam 0.5 MG TABLET 0.25 MG PO (11:09)
--- NOTE | 2023-10-27 11:13 | MHC.CM.PN ---
Addendum entered by Evie Rock RN 10/27/23 12:52: CM CONTACTED PT'S PCP EULOGIO DICKERSON [facility] PT'S DTR REQUESTED BE FILLED OUT, FORMS NEED TO BE FILLED OUT BY PCP NOT HOSPITALIST, CM SPOKE W/PCP OFFICE STAFF AND FORM FAXED. Original Note: EMR REVIEWED, PER CARDIOLOGY PT WILL BENEFIT FROM CARDIAC CATH, ANTIC PT WILL TXFR TO [facility].
[2023-10-27 11:28] VITALS: BP 102/57; PULSE 90; RESP 18; TEMP 36.9; O2SAT 95
--- NOTE | 2023-10-27 12:31 | HO.PM.IMPN ---
Subjective Subjective Date of Service: 10/28/23 Interval History: f/u on acute hypoxic respiratoy failure, heart failure, hyponatremia, encephalopathy and NSTEMI interval history:Feels in general tired, no chest pain at rest, no sob, Physical Exam Vital Signs: Vital Signs: Last Vital Signs Temp 98.5 F 10/27/23 11:28 Pulse 90 10/27/23 11:28 Resp 18 10/27/23 11:28 BP 102/57 L 10/27/23 11:28 Pulse Ox 95 10/27/23 11:28 O2 Del Method Nasal Cannula 10/27/23 11:28 O2 Flow Rate 2 10/27/23 11:28 BMI result Body Mass Index 34.3 Const: Other: General: AO X 3, no acute distress Resp: CTA bilateral CVS: S1,S2,RRR, 1 + leg edema GI: +BS, NT, no distention Skin: No rash Neuro: motor grossly intact Psych: appropriate affect Objective Data Active Medications Acetaminophen (Acetaminophen 325 Mg Tablet) 975 mg PO Q6H PRN PRN Reason: mild pain, headache or fever Last Admin: 10/26/23 05:07 Dose: 975 mg Documented By: KASSANDRA Amlodipine Besylate (Amlodipine Besylate 2.5 Mg Tablet) 2.5 mg PO BEDTIME [facility]; Protocol Last Admin: 10/26/23 22:23 Dose: 2.5 mg Documented By: JEAN Aspirin (Aspirin Enteric Coated 81 Mg Tablet.) 81 mg PO DAILY [facility] Last Admin: 10/27/23 09:09 Dose: 81 mg Documented By: ELSA Atorvastatin Calcium (Atorvastatin Calcium 20 Mg Tablet) 20 mg PO BEDTIME [facility] Last Admin: 10/26/23 22:24 Dose: 20 mg Documented By: JEAN Cilostazol (Cilostazol 50 Mg Tablet) 50 mg PO BID [facility] Last Admin: 10/27/23 09:09 Dose: 50 mg Documented By: ELSA Enoxaparin Sodium (Enoxaparin Sodium 30 Mg/0.3 Ml Syringe) 30 mg SUBCUT DAILY [facility] Last Admin: 10/27/23 09:08 Dose: 30 mg Documented By: ELSA Furosemide (Furosemide 40 Mg/4 Ml Vial) 40 mg IVPUSH DAILY [facility]; Protocol Last Admin: 10/27/23 09:09 Dose: 40 mg Documented By: ELSA Labetalol HCl (Labetalol Hcl 100 Mg Tablet) 100 mg PO BID [facility]; Protocol Last Admin: 10/27/23 09:09 Dose: 100 mg Documented By: ELSA Levothyroxine Sodium (Levothyroxine Sodium 50 Mcg Tablet) 50 mcg PO DAILY@0600 [facility] Last Admin: 10/27/23 06:02 Dose: 50 mcg Documented By: JEAN Loratadine (Loratadine 10 Mg Tablet) 10 mg PO BEDTIME [facility] Last Admin: 10/26/23 22:24 Dose: 10 mg Documented By: JEAN Lorazepam (Lorazepam 0.5 Mg Tablet) 0.25 mg PO DAILY PRN PRN Reason: anxiety/restlessness Last Admin: 10/27/23 11:09 Dose: 0.25 mg Documented By: ELSA Melatonin (Melatonin 3 Mg Tablet) 3 mg PO BEDTIME PRN PRN Reason: Sleep Last Admin: 10/25/23 21:15 Dose: 3 mg Documented By: KASSANDRA Omeprazole (Omeprazole 20 Mg Capsule.Dr) 20 mg PO DAILY@0630 [facility] Last Admin: 10/27/23 06:02 Dose: 20 mg Documented By: JEAN Sodium Chloride (0.9 % Sodium Chloride Flush 3 Ml Syringe) [facility] Last Admin: 10/27/23 09:10 Dose: 3 ml Documented By: ELSA Trazodone HCl (Trazodone Hcl 25 Mg Halftab) 75 mg PO BEDTIME [facility] Last Admin: 10/26/23 22:22 Dose: 75 mg Documented By: JEAN Vitamin D (Cholecalciferol (Vitamin D3) 25 Mcg Tablet) 50 mcg PO DAILY [facility] Last Admin: 10/27/23 09:10 Dose: 50 mcg Documented By: ELSA Labs 10/25/23 06:17 10/28/23 06:06 Labs: Laboratory Results - last 24 hr 10/27/23 06:12 Hold Purple Top SEE NOTE Anion Gap 17 Estim Creat Clear Calc 24.1 Estimated GFR 34 Random Glucose 106 Calcium 9.4 D Assessment and Plan (1) Respiratory failure with hypoxia and hypercapnia: Status: Acute (2) Acute hyponatremia: Status: Acute (3) Hypertensive urgency: Status: Resolved Plan 88/F with restrictive mingo disease, Copd, pulmonoary HTN, HTN, CKD here with acute hypoxic resp failure, hyponatremia, NSTEMI Acute Hypoxic and hypercapnic respiratory failure likely multifactorial: Possible underlying SHERMAN, underlying COPD, heart failure and acute NSTEMI. Hypoxia resolved. -continue treatment for heart failure, NSTEMI, CXR fidning are hernestoley refelective on PNA, repeat CXR. Pulmonology consult noted. Acute encephalopathy likely d/t hypoxia and Hyponatremia--resolved, at baseline NSTEMI -- medical management with BB,ASA, Statin and Levenox for 48 stop today, echo 10/24 EF> 70 and no RWMA. Cardiology to make recommendation on further management including the posibility of cardiac cath Hypervolemic hyponatremia, likely secondary to heart failure--sodium level is steadily rising, continue following, Nephrology following, water restriction. Hyperkalemia. resolved, hold Valsartan Acute HFpEF--continue IV Kasux CKD, stage 3B. Stable HTN Continue labetalol amlodipine. holding Valsartan (BP on lower side) Hyperlipidemia. Continue statin. Anxiety and depression. holding Lexapro can make hyponatremia worse. Psych consult for different med Hypothyroidism. TSH slightly high, Continue levothyroxine. GERD. Continue PPI. SHERMAN, needs sleep study Code status: DNR DNI DVT prophylaxis: Heparin need for inaptient: acute hypoxic resp failure, heart failyre, severe hyponatermia, needs close monitoring, repeat labs. Son is HCP, but patient wants daughter Anaid to alternate PT eval tomorrow plan discussed with daughter at bedside and son Joey (over the phone) Total time managing care of this patient today: 30 minutes. Quality Stroke Does the patient have a stroke diagnosis?: No VTE Prior VTE?: No VTE Risk Level:: Medical - moderate - high VTE Device Contraindication: N/A - Device Ordered VTE Drug Contraindication: N/A - Med Ordered
--- NOTE | 2023-10-27 13:18 | P.PNNP_ITS ---
Subjective Subjective Date of Service: 10/28/23 Principal diagnosis: NSTEMI Interval history: Given noted. Feels tired. Blood pressure has been low Physical Exam 2 Vital Signs: Vital Signs: Last Vital Signs Temp 98.5 F 10/27/23 11:28 Pulse 90 10/27/23 11:28 Resp 18 10/27/23 11:28 BP 102/57 L 10/27/23 11:28 Pulse Ox 95 10/27/23 11:28 O2 Del Method Nasal Cannula 10/27/23 11:28 O2 Flow Rate 2 10/27/23 11:28 BMI result Body Mass Index 34.3 Const: General: ill appearing Neck: Neck: Yes supple Resp: Auscultation: clear to auscultation bilaterally Cardio: Palpation: no palpable S3 Heart sounds: no rubs GI: Palpation (GI): Soft to palpation Auscultation: normal bowel sounds Neuro: Motor exam (neuro): no asterixis Objective Data Labs 10/25/23 06:17 10/28/23 06:06 Labs: Laboratory Results - last 24 hr 10/27/23 06:12 Hold Purple Top SEE NOTE Sodium 126 L Potassium 5.1 Chloride 88 L Carbon Dioxide 26 Anion Gap 17 BUN 68 H Creatinine 1.44 H Estim Creat Clear Calc 24.1 Estimated GFR 34 Random Glucose 106 Calcium 9.4 D Microbiology Microbiology Results: Microbiology 10/24/23 01:08 Blood - Venous Blood Culture - Preliminary No growth after 48 hours. 10/24/23 01:08 Blood - Venous Blood Culture - Preliminary No growth after 48 hours. Procedures Date of Service Date of Service: 10/28/23 Assessment & Plan Assessment and plan (1) CKD (chronic kidney disease) stage 3, GFR 30-59 ml/min: Status: Acute (2) Acute hyponatremia: Status: Acute Plan Elderly woman with acute kidney injury and hyponatremia. Currently she is hypotensive which could have resulted renal hypoperfusion and worsening renal function. Hold amlodipine. Maintain systolic blood pressure more than 100 mm Hg. Hyponatremia is multifactorial. She probably has non osmotic ADH release leading to decreased free water clearance. She is mild hypothyroidism as well. Optimize thyroid function Restrict oral free water intake. Maintain systolic blood pressure more than 100 mm Hg and she may even require IV normal saline 50 cc/hour x5 100 cc if she remains hypotensive. If sodium drops further I will continue with urea powder. There is expected increase in blood urea nitrogen with the addition of urea powder. No indication for hypotonic saline at this time Time Spent With Patient Time: Total time managing care of this patient today ____ minutes. Progress Note: Quality Stroke Does the patient have a stroke diagnosis?: No
[2023-10-27 16:00] VITALS: BP 124/59; PULSE 92; RESP 16; TEMP 36.7; O2SAT 96
[2023-10-27 19:55] VITALS: BP 128/58; PULSE 102; RESP 20; TEMP 36.8; O2SAT 93
[2023-10-27] MEDS: Loratadine 10 MG TABLET PO (21:48)
[2023-10-27] MEDS: Atorvastatin Calcium 20 MG TABLET PO (21:48)
[2023-10-27] MEDS: traZODone HCL 25 MG HALFTAB 75 MG PO (21:48)
[2023-10-27] MEDS: amLODIPine Besylate 2.5 MG TABLET PO (21:50)
[2023-10-27] MEDS: Calcium Carbonate 750 MG TAB.CHEW PO (22:21)
[2023-10-28] VITALS (8 sets, daily range): BP systolic 105–142; BP diastolic 54–65; PULSE 85–102; RESP 16–20; TEMP 36.2–37.3; O2SAT 91–97
[2023-10-28] MEDS: 0.9 % Sodium Chloride Flush 3 ML SYRINGE IVFLUSH ×3 (00:47→20:14)
--- NOTE | 2023-10-28 00:55 | MHC.PIE ---
P.Chest pain I.Pt c/o chest pain and heartburn,radiating to her back.Stat EKG obtained and sent to Dr Hutchinson.Maalox 30 cc x 1 ordered by .Also STAT troponin. E.Troponin 180.6.Dr Hutchinson aware.Decreased from last troponin.Cardiology on board already.Relief from Maalox per patient.Resting comf.Cont to monitor.
--- NOTE | 2023-10-28 01:12 | ECG_ITS ---
Test Reason : chest pain Blood Pressure : / mmHG Vent. Rate : 108 BPM Atrial Rate : 108 BPM P-R Int : 182 ms QRS Dur : 096 ms QT Int : 320 ms P-R-T Axes : 052 033 118 degrees QTc Int : 428 ms Sinus tachycardia Marked ST abnormality, possible inferolateral subendocardial injury Abnormal ECG When compared with ECG of 24-OCT-2023 10:54, ST now depressed in Anterolateral leads Referred By: Carter Merrill Electronically Signed By:Mendez Gillespie
[2023-10-28] MEDS: Magnesium Hydrox/Alum Hydrox 30 ML ORAL.SUSP PO (01:33)
[2023-10-28 02:36] LABS: Troponin-I High Sensitivity 180.6 ng/L (<3.5-17.0)
--- NOTE | 2023-10-28 02:37 | PM.EVENT ---
Event Note Date of Service: 10/28/23 Event Note: Patient with chest discomfort. States she feels like acid reflux. Ordered Tums and Maalox. Obtaining troponin and EKG in patient with NSTEMI. Hemodynamically stable Time Spent With Patient Time: Total time managing care of this patient today ____ minutes.
[2023-10-28] MEDS: Omeprazole 20 MG CAPSULE.DR PO (05:57)
[2023-10-28] MEDS: Levothyroxine Sodium 50 MCG TABLET PO (05:57)
[2023-10-28 06:31] LABS: Anion Gap 12 (12-20); Blood Urea Nitrogen 58 mg/dL (9-16); Calcium 9.5 mg/dL (8.4-10.2); Carbon Dioxide 32 mmol/L (22-29); Chloride 87 mmol/L (96-108); Creatinine Clr Calc Pharmacy 23.8; Estimated Glomerular Filt Rate 34; Glucose Random 122 mg/dL (60-115); Potassium 4.7 mmol/L (3.3-5.1); Sodium 126 mmol/L (135-145)
[2023-10-28] MEDS: Labetalol HCL 100 MG TABLET PO (08:33)
[2023-10-28] MEDS: cilostazoL 50 MG TABLET PO (08:34)
[2023-10-28] MEDS: Cholecalciferol (Vitamin D3) 25 MCG TABLET 50 MCG PO (08:34)
[2023-10-28] MEDS: Aspirin Enteric Coated 81 MG TABLET.DR PO (08:34)
[2023-10-28] MEDS: Enoxaparin Sodium 30 MG/0.3 ML SYRINGE SUBCUT (08:34)
--- NOTE | 2023-10-28 09:05 | P.PNNP_ITS ---
Subjective Subjective Date of Service: 10/28/23 Principal diagnosis: NSTEMI Interval history: Events noted Blood pressure has been low Physical Exam 2 Vital Signs: Vital Signs: Last Vital Signs Temp 97.2 F 10/28/23 07:48 Pulse 89 10/28/23 08:33 Resp 20 10/28/23 07:48 BP 112/54 L 10/28/23 08:33 Pulse Ox 97 10/28/23 07:48 O2 Del Method Nasal Cannula 10/28/23 07:48 O2 Flow Rate 2 10/28/23 07:48 BMI result Body Mass Index 34.3 Awake. Comfortable. Neck is supple. Mucosa moist. Lungs bilateral scattered rhonchi. Heart S1-S2 heard no gallop. Abdomen soft. Extremities no edema. No involuntary movements. No myoclonus. Objective Data Labs 10/25/23 06:17 10/28/23 06:06 Labs: Laboratory Results - last 24 hr 10/28/23 10/28/23 02:01 06:06 Sodium 126 L Potassium 4.7 Chloride 87 L Carbon Dioxide 32 H Anion Gap 12 BUN 58 H Creatinine 1.46 H Estim Creat Clear Calc 23.8 Estimated GFR 34 Random Glucose 122 H Calcium 9.5 Troponin I High Sens 180.6 H* D Microbiology Microbiology Results: Microbiology 10/24/23 01:08 Blood - Venous Blood Culture - Preliminary No growth after 48 hours. 10/24/23 01:08 Blood - Venous Blood Culture - Preliminary No growth after 48 hours. Procedures Date of Service Date of Service: 10/28/23 Assessment & Plan Assessment and plan (1) Acute hyponatremia: Status: Acute (2) RUBINA (acute kidney injury): Status: Acute (3) CKD (chronic kidney disease) stage 3, GFR 30-59 ml/min: Status: Acute Plan Elderly woman with acute kidney injury and hyponatremia. - hypotensive; which could have resulted renal hypoperfusion and worsening renal function. Hold amlodipine. Maintain systolic blood pressure more than 100 mm Hg. UO is accepable Hyponatremia is multifactorial. She probably has non osmotic ADH release leading to decreased free water clearance. She is mild hypothyroidism as well. Optimize thyroid function Restrict oral free water intake. Maintain systolic blood pressure more than 100 mm Hg and she may even require IV normal saline 50 cc/hour x5 100 cc if she remains hypotensive. If sodium drops further I will continue with urea powder. There is expected increase in blood urea nitrogen with the addition of urea powder. No indication for hypertonic saline at this time Time Spent With Patient Time: Total time managing care of this patient today ____ minutes. Progress Note: Quality Stroke Does the patient have a stroke diagnosis?: No
--- NOTE | 2023-10-28 11:12 | PM.PNCARD ---
Subjective Subjective Date of Service: 10/28/23 Principal diagnosis: NSTEMI Interval history: Seen and examine at bedside. Denying any chest discomfort. ECGs, Labs and imaging reviewed. Physical Exam Vital Signs: Last Vital Signs Temp 97.2 F 10/28/23 07:48 Pulse 89 10/28/23 08:33 Resp 20 10/28/23 07:48 BP 112/54 L 10/28/23 08:33 Pulse Ox 97 10/28/23 07:48 O2 Del Method Nasal Cannula 10/28/23 07:48 O2 Flow Rate 2 10/28/23 07:48 BMI result Body Mass Index 34.3 GENERAL APPEARANCE: in no acute distress, on supplemental oxygen. NECK: no carotid bruit, no jugular venous distention. SKIN: no suspicious lesions, warm and dry. HEART: no murmurs, regular rate and rhythm. LUNGS: clear to auscultation bilaterally. ABDOMEN: soft, nontender. EXTREMITIES: no edema. PERIPHERAL PULSES: equal. NEUROLOGIC: No gross deficits, AAO X 3 Objective Labs and Meds 10/25/23 06:17 10/28/23 06:06 Lab results: Laboratory Results - last 24 hr 10/28/23 10/28/23 02:01 06:06 Sodium 126 L Potassium 4.7 Chloride 87 L Carbon Dioxide 32 H Anion Gap 12 BUN 58 H Creatinine 1.46 H Estim Creat Clear Calc 23.8 Estimated GFR 34 Random Glucose 122 H Calcium 9.5 Troponin I High Sens 180.6 H* D Progress Note: A&P Assessment and plan (1) NSTEMI (non-ST elevated myocardial infarction): Status: Acute (2) CKD (chronic kidney disease) stage 3, GFR 30-59 ml/min: Status: Acute (3) Pulmonary hypertension: Status: Acute Plan 88-year-old female with background history of COVID-19 infection with subsequent diagnosis of restrictive lung disease maybe related to COVID-19 infection, pulmonary hypertension, chronic kidney disease who presented with hyponatremia and chest discomfort. She ruled in for NSTEMI. Her EKGs have shown dynamic ST depressions which had diffuse. She is currently on supplemental oxygen with saturations in 90s. She was treated with therapeutic dose of Lovenox. Currently on baby aspirin. Dr. Albert and Dr. Teague had discussion with the patient and family before and no clear decisions were made. I spent close to 1 hour with the family with daughter in the room and son Joey who is healthcare proxy as well as another daughter on the telephone. I have explained to the patient and family that she has discomfort in her chest at rest with dynamic EKG changes and concern is that she has underlying obstructive coronary artery disease and based on EKG it can be multivessel disease or left main stenosis. She also has restrictive lung disease and is hypoxic without oxygen. I do not know whether these EKG changes have anything do with hypoxia because that will also lead to diffuse ST depressions. In any case we had a detailed discussion about medical treatment versus invasive assessment. I have laid out the pros and cons of both strategies in great detail to them. Currently the patient and family wished to discuss this further. I have advised the patient that if she decides to be medically treated we should ambulate her in the hallway on oxygen to see how she does with activities. If obviously she gets chest pains with minimal activity then we have to define strategy about home because the likely outcome will be that she will be read admitted to hospital potentially in a worse situation than current. She also has CKD with some acute kidney injury currently. She also has hyponatremia ongoing and is being followed by Nephrology. Thank you for allowing me to participate in the care of your patient. Please feel free to contact me if you have any questions. Time Spent With Patient Time: Total time managing care of this patient today ____ minutes. Progress Note: Quality Stroke Does the patient have a stroke diagnosis?: No Procedures Date of Service Date of Service: 10/28/23
--- NOTE | 2023-10-28 11:42 | HO.PM.IMPN ---
Subjective Subjective Date of Service: 10/28/23 Interval History: f/u on acute hypoxic respiratoy failure, heart failure, hyponatremia, encephalopathy and NSTEMI interval history:had chest pain overnight that she thought was related to heart burn, troponin was lower than last one, no new ECG chages, got relief with Maalox. She seems a bit drowsy this morning Physical Exam Vital Signs: Vital Signs: Last Vital Signs Temp 97.3 F 10/28/23 11:12 Pulse 85 10/28/23 11:12 Resp 20 10/28/23 11:12 BP 105/55 L 10/28/23 11:12 Pulse Ox 93 10/28/23 11:12 O2 Del Method Nasal Cannula 10/28/23 11:12 O2 Flow Rate 2 10/28/23 11:12 BMI result Body Mass Index 34.3 Const: Other: General: AO X 2, no acute distress Resp: CTA bilateral CVS: S1,S2,RRR, 1 + leg edema GI: +BS, NT, no distention Skin: No rash Neuro: motor grossly intact Psych: appropriate affect Objective Data Active Medications Acetaminophen (Acetaminophen 325 Mg Tablet) 975 mg PO Q6H PRN PRN Reason: mild pain, headache or fever Last Admin: 10/26/23 05:07 Dose: 975 mg Documented By: KASSANDRA Amlodipine Besylate (Amlodipine Besylate 2.5 Mg Tablet) 2.5 mg PO BEDTIME [facility]; Protocol Last Admin: 10/27/23 21:50 Dose: 2.5 mg Documented By: KACIE Aspirin (Aspirin Enteric Coated 81 Mg Tablet.) 81 mg PO DAILY [facility] Last Admin: 10/28/23 08:34 Dose: 81 mg Documented By: ELSA Atorvastatin Calcium (Atorvastatin Calcium 20 Mg Tablet) 20 mg PO BEDTIME [facility] Last Admin: 10/27/23 21:48 Dose: 20 mg Documented By: KACIE Cilostazol (Cilostazol 50 Mg Tablet) 50 mg PO BID [facility] Last Admin: 10/28/23 08:34 Dose: 50 mg Documented By: ELSA Enoxaparin Sodium (Enoxaparin Sodium 30 Mg/0.3 Ml Syringe) 30 mg SUBCUT DAILY [facility] Last Admin: 10/28/23 08:34 Dose: 30 mg Documented By: ELSA Labetalol HCl (Labetalol Hcl 100 Mg Tablet) 100 mg PO BID [facility]; Protocol Last Admin: 10/28/23 08:33 Dose: 100 mg Documented By: ELSA Levothyroxine Sodium (Levothyroxine Sodium 50 Mcg Tablet) 50 mcg PO DAILY@0600 [facility] Last Admin: 10/28/23 05:57 Dose: 50 mcg Documented By: JACQUELINE Loratadine (Loratadine 10 Mg Tablet) 10 mg PO BEDTIME [facility] Last Admin: 10/27/23 21:48 Dose: 10 mg Documented By: KACIE Lorazepam (Lorazepam 0.5 Mg Tablet) 0.25 mg PO DAILY PRN PRN Reason: anxiety/restlessness Last Admin: 10/27/23 11:09 Dose: 0.25 mg Documented By: ELSA Melatonin (Melatonin 3 Mg Tablet) 3 mg PO BEDTIME PRN PRN Reason: Sleep Last Admin: 10/25/23 21:15 Dose: 3 mg Documented By: KASSANDRA Omeprazole (Omeprazole 20 Mg Capsule.) 20 mg PO DAILY@0630 [facility] Last Admin: 10/28/23 05:57 Dose: 20 mg Documented By: JACQUELINE Sodium Chloride (0.9 % Sodium Chloride Flush 3 Ml Syringe) 3 ml IVFLUSH QSHIFT [facility] Last Admin: 10/28/23 08:34 Dose: 3 ml Documented By: ELSA Trazodone HCl (Trazodone Hcl 25 Mg Halftab) 75 mg PO BEDTIME [facility] Last Admin: 10/27/23 21:48 Dose: 75 mg Documented By: KACIE Urea (Urea 15 Gm Powder) 30 gm PO ONCE ONE Stop: 10/28/23 11:42 Vitamin D (Cholecalciferol (Vitamin D3) 25 Mcg Tablet) 50 mcg PO DAILY [facility] Last Admin: 10/28/23 08:34 Dose: 50 mcg Documented By: ELSA Labs 10/25/23 06:17 10/28/23 06:06 Labs: Laboratory Results - last 24 hr 10/28/23 10/28/23 02:01 06:06 Anion Gap 12 Estim Creat Clear Calc 23.8 Estimated GFR 34 Random Glucose 122 H Calcium 9.5 Troponin I High Sens 180.6 H* D Assessment and Plan (1) Respiratory failure with hypoxia and hypercapnia: Status: Acute (2) Acute hyponatremia: Status: Acute (3) Hypertensive urgency: Status: Resolved Plan 88/F with restrictive mingo disease, Copd, pulmonoary HTN, HTN, CKD here with acute hypoxic resp failure, hyponatremia, NSTEMI Acute Hypoxic and hypercapnic respiratory failure likely multifactorial: Possible underlying SHERMAN, underlying COPD, heart failure and acute NSTEMI. Hypoxia resolved. -continue treatment for heart failure as needed, NSTEMI, CXR fidning are likley not refelective of PNA. Pulmonology consult noted. Acute encephalopathy likely d/t hypoxia and Hyponatremia--resolved, at baseline, seems more drowsy today so dc trazadone NSTEMI -- medical management with BB,ASA, Statin and Levenox for 48 stop today, echo 10/24 EF> 70 and no RWMA. Patient is considering treatment options including cardiac catheterization vs medical management alone, has not yet made any commitment. Will discuss further with cardiology Hypervolemic hyponatremia, likely secondary to heart failure, underlying siadh and SSI. still on fluid restriction, hold SSRI, Urea powder today, consider IVF if sodium trending lower or BP trending down Hyperkalemia. resolved, hold Valsartan Acute HFpEF--IV Lasix stopped CKD, stage 3B. Stable HTN Continue labetalol amlodipine. holding Valsartan (BP on lower side) Hyperlipidemia. Continue statin. Anxiety and depression. holding Lexapro can make hyponatremia worse. Psych consult for different med Hypothyroidism. TSH slightly high, Continue levothyroxine. GERD. Continue PPI. SHERMAN, needs sleep study Code status: DNR DNI DVT prophylaxis: Heparin need for inaptient: acute hypoxic resp failure, heart failyre, severe hyponatermia, needs close monitoring, repeat labs. Son is HCP, but patient wants daughter Anaid to alternate PT eval tomorrow I usually discuss with patient and daughter Total time managing care of this patient today: 30 minutes. Quality Stroke Does the patient have a stroke diagnosis?: No VTE Prior VTE?: No VTE Risk Level:: Medical - moderate - high VTE Device Contraindication: N/A - Device Ordered VTE Drug Contraindication: N/A - Med Ordered
[2023-10-28] MEDS: Urea 15 GM POWDER 30 GM PO (12:27)
[2023-10-28] MEDS: 0.9 % Sodium Chloride 250 ML 50 ML IV (16:48)
[2023-10-28] MEDS: Acetaminophen 325 MG TABLET 975 MG PO (16:49)
[2023-10-28] MEDS: LORazepam 0.5 MG TABLET 0.25 MG PO (20:10)
[2023-10-28] MEDS: traZODone HCL 50 MG TABLET PO (20:11)
[2023-10-28] MEDS: Metoprolol Tartrate 25 MG TABLET PO (20:11)
[2023-10-28] MEDS: Loratadine 10 MG TABLET PO (20:11)
[2023-10-28] MEDS: Atorvastatin Calcium 20 MG TABLET PO (20:11)
[2023-10-28] MEDS: amLODIPine Besylate 2.5 MG TABLET PO (20:11)
[2023-10-29] VITALS: BP 123/59; PULSE 80; RESP 18; TEMP 36.4; O2SAT 97
--- NOTE | 2023-10-29 | ECG_ITS ---
Test Reason : cp Blood Pressure : / mmHG Vent. Rate : 090 BPM Atrial Rate : 090 BPM P-R Int : 158 ms QRS Dur : 082 ms QT Int : 348 ms P-R-T Axes : 080 040 013 degrees QTc Int : 425 ms Normal sinus rhythm Nonspecific ST and T wave abnormality Abnormal ECG When compared with ECG of 28-OCT-2023 01:21, ST no longer depressed in Anterolateral leads Nonspecific T wave abnormality now evident in Inferior leads Referred By: Mendez Gillespie Electronically Signed By:Mendez Gillespie
[2023-10-29 04:00] VITALS: BP 123/61; PULSE 77; RESP 20; TEMP 36.1; O2SAT 97
[2023-10-29] MEDS: Omeprazole 20 MG CAPSULE.DR PO (06:17)
[2023-10-29] MEDS: Levothyroxine Sodium 50 MCG TABLET PO (06:17)
[2023-10-29 07:17] VITALS: BMI 29.7
[2023-10-29 07:35] VITALS: BP 149/65; PULSE 94; RESP 20; TEMP 36.4; O2SAT 93
[2023-10-29 08:47] LABS: Anion Gap 12 (12-20); Blood Urea Nitrogen 59 mg/dL (9-16); Calcium 9.7 mg/dL (8.4-10.2); Carbon Dioxide 34 mmol/L (22-29); Chloride 91 mmol/L (96-108); Creatinine Clr Calc Pharmacy 26.9; Estimated Glomerular Filt Rate 42; Glucose Random 92 mg/dL (60-115); Potassium 4.7 mmol/L (3.3-5.1); Sodium 132 mmol/L (135-145)
[2023-10-29] MEDS: Aspirin Enteric Coated 81 MG TABLET.DR PO (09:49)
[2023-10-29] MEDS: 0.9 % Sodium Chloride Flush 3 ML SYRINGE IVFLUSH (09:49)
[2023-10-29] MEDS: Enoxaparin Sodium 30 MG/0.3 ML SYRINGE SUBCUT (09:49)
[2023-10-29] MEDS: Cholecalciferol (Vitamin D3) 25 MCG TABLET 50 MCG PO (09:49)
[2023-10-29 11:14] VITALS: BP 140/63; PULSE 79; RESP 20; TEMP 36.5; O2SAT 97
--- NOTE | 2023-10-29 11:29 | PM.PNCARD ---
Subjective Subjective Date of Service: 10/29/23 Principal diagnosis: NSTEMI Interval history: Seen examined at bedside. She is saying that she is feeling better. Continues to be on supplemental oxygen. She has not been out of bed. We had a detailed discussion about management plan yesterday with patient and her family. Apparently they had a discussion and patient agreed to cardiac catheterization but when I started talking to her she again was indecisive. No significant symptoms today. We will repeat an EKG today. Physical Exam Vital Signs: Last Vital Signs Temp 97.7 F 10/29/23 11:14 Pulse 79 10/29/23 11:14 Resp 20 10/29/23 11:14 BP 140/63 H 10/29/23 11:14 Pulse Ox 97 10/29/23 11:14 O2 Del Method Nasal Cannula 10/29/23 11:14 O2 Flow Rate 3 10/29/23 11:14 BMI result Body Mass Index 29.7 GENERAL APPEARANCE: in no acute distress, on supplemental oxygen. NECK: no carotid bruit, mild jugular venous distention. SKIN: no suspicious lesions, warm and dry. HEART: no murmurs, regular rate and rhythm. LUNGS: clear to auscultation bilaterally. ABDOMEN: soft, nontender. EXTREMITIES: no edema. PERIPHERAL PULSES: equal. NEUROLOGIC: No gross deficits, AAO X 3 Objective Labs and Meds 10/25/23 06:17 10/29/23 07:34 Lab results: Laboratory Results - last 24 hr 10/29/23 07:34 Hold Purple Top SEE NOTE Sodium 132 L Potassium 4.7 Chloride 91 L Carbon Dioxide 34 H Anion Gap 12 BUN 59 H Creatinine 1.20 Estim Creat Clear Calc 26.9 Estimated GFR 42 Random Glucose 92 Calcium 9.7 Progress Note: A&P Assessment and plan (1) NSTEMI (non-ST elevated myocardial infarction): Status: Acute (2) CKD (chronic kidney disease) stage 3, GFR 30-59 ml/min: Status: Acute (3) Pulmonary hypertension: Status: Acute (4) Mitral stenosis: Status: Acute Plan 88-year-old female with background history of COVID-19 infection, pulmonary hypertension, chronic kidney disease and calcific mitral valve stenosis in the range of [id number] stenosis who presented with hyponatremia and chest discomfort. I have reviewed the chart in detail from presentation. It appears she was in congestive heart failure initially which was initially thought to be restrictive lung disease due to COVID-19 but her chest x-ray has improved significantly with diuresis. Her echocardiogram has raise concern for [id number] calcific mitral valve stenosis. She had dynamic EKG changes with diffuse ST depressions. It is unclear whether these happen in the setting of hypoxia or not but there are few EKGs showing these changes which resolved afterward. She has been getting indigestion like chest pains at rest. She clearly had a rise and fall in troponin level. Repeat echocardiography has not shown any wall motion abnormalities. She is fairly complex issues going on. I am concerned that she has either multivessel disease or left main stenosis based on the EKG changes that she has been getting. I have explained this with the patient and her daughters at bedside today-again. With diuresis she has improved significantly but continues to be on supplemental oxygen and her chest x-ray is showing emphysema so there is a possibility she will need oxygen. She was on cilostazol which is contraindicated in congestive heart failure and I am stopping that. Also we may have to use Plavix in case she agrees to cardiac catheterization. So far she is quite indecisive about doing any procedure. I have advised her to walk the hallways to see if she gets any chest discomfort with activities. If she stays stable with activities and does not have any dynamic EKG changes then I think addition of Plavix and discharge to rehab could be a possibility. On the other hand if she keeps having dynamic changes on EKG or gets symptoms with ambulation then I think palliative Care should be involved in case she does not agree for any invasive procedures. Given mitral stenosis would try to control heart rate better and we have added metoprolol for rate control. She was previously on labetalol but due to blood pressure changes this was stopped. I think she may be able to tolerate metoprolol better and we can titrate the dose and bring her heart rates as low as possible. Mitral stenosis gradients are higher with faster heart rates. We will follow along with you. Thank you for allowing me to participate in the care of your patient. Please feel free to contact me if you have any questions. Time Spent With Patient Time: Total time managing care of this patient today ____ minutes. Progress Note: Quality Stroke Does the patient have a stroke diagnosis?: No Procedures Date of Service Date of Service: 10/29/23
[2023-10-29] MEDS: LORazepam 0.5 MG TABLET 0.25 MG PO (12:03)
--- NOTE | 2023-10-29 13:35 | MHC.CM.PN ---
Addendum entered by Evie Rock RN 10/29/23 15:45: [place] [facility] [place] Original Note: EMR REVIEWED, PER CARDIO NOTES PT CONT'S TO BE INDECISIVE ABOUT CARDIAC CATH, CARDIO RECOMMENDING PALLIATIVE CARE IF PT DOES NOT AGREE TO CARDIAC CATH, CM WILL CONT TO FOLLOW DC NEEDS.
--- NOTE | 2023-10-29 14:29 | PM.PNNEP ---
Subjective Subjective Date of Service: 10/29/23 Principal diagnosis: NSTEMI Interval history: Events noted. All recent data reviewed. Discussed with the hospitalist. Physical Exam Vital Signs: Vital Signs: Last Vital Signs Temp 97.7 F 10/29/23 11:14 Pulse 79 10/29/23 11:14 Resp 20 10/29/23 11:14 BP 140/63 H 10/29/23 11:14 Pulse Ox 97 10/29/23 11:14 O2 Del Method Nasal Cannula 10/29/23 11:14 O2 Flow Rate 3 10/29/23 11:14 BMI result Body Mass Index 29.7 Const: General: no acute distress Neck: Neck: Yes supple Resp: Auscultation: diminished lung sounds Cardio: Rate: regular rate GI: Palpation (GI): Soft to palpation Neuro: General: moves all extremities Objective Data Labs 10/25/23 06:17 10/29/23 07:34 Labs: Laboratory Results - last 24 hr 10/29/23 07:34 Hold Purple Top SEE NOTE Sodium 132 L Potassium 4.7 Chloride 91 L Carbon Dioxide 34 H Anion Gap 12 BUN 59 H Creatinine 1.20 Estim Creat Clear Calc 26.9 Estimated GFR 42 Random Glucose 92 Calcium 9.7 Microbiology Microbiology Results: Microbiology 10/24/23 01:08 Blood - Venous Blood Culture - Final No growth after 5 days. 10/24/23 01:08 Blood - Venous Blood Culture - Final No growth after 5 days. Procedures Date of Service Date of Service: 10/29/23 Assessment & Plan Assessment and plan (1) RUBINA (acute kidney injury): Status: Acute Plan Hyponatremia likely multifactorial. Has baseline excess ADH Was mildly hypervolemic at presentation and received diuretic/Urea Serum sodium better. RUBINA resolving Continue with rest of her current management for now Needs follow up [place] [facility] [place] D[place]C Progress Note: Quality Stroke Does the patient have a stroke diagnosis?: No
--- NOTE | 2023-10-29 14:36 | PM.DS ---
DS: Providers Provider Date of Service: 10/29/23 Date of admission: 10/24/23 00:55 Primary care physician: Tk Lemus MD Consults: 10/24/23 02:37 Consult to Pulmonology Routine Consulting Provider: [facility] [place] [facility] Reason for consultation: Respiratory failure Has provider been notified: No 10/24/23 08:49 Consult to Cardiology Routine Consulting Provider: [facility] [place] [facility] Reason for consultation: NSTEMI, heart failure 10/24/23 09:32 Consult to Nephrology Routine Consulting Provider: [facility] [place] [facility] Reason for consultation: Severe Hyponatremia Has provider been notified: No 10/26/23 10:11 Consult to Psychiatry Routine Consulting Provider: [facility] Reason for consultation: Depression managment, SSRI causing low sodium Has provider been notified: No DS: Diagnosis Discharge Diagnosis (1) RUBINA (acute kidney injury): Status: Acute DS: Summary Hospital Course Hospital Course: admission hpi Chief Complaint: Chest pain Effie Aleman is a very pleasant 88 years old woman with past medical history significant for restrictive lung disease, pulmonary emphysema, hypothyroidism, HFpEF and hypertension was brought to the emergency department complaining of worsening retrosternal chest pain and some shortness on breath. Patient did not report wheezing, cough, fever or chills. She complains of mild edema to the lower extremities. Patient's daughter was at bedside and contributed with the HPI. She was recently admitted to the hospital with diagnosis of hypertensive urgency. Daughter mentioned that since the patient's seems very somnolent and weak. Daughter also mentioned that the patient snores most of time. Patient has been taking Xanax at home. Patient denied gastrointestinal or genitourinary changes. She is a former tobacco smoker and smoked for 50 years. Denied alcohol abuse or illicit drug use. In the ED, the patient was found to have low O2 sats, 80% and was placed on 4L/min (we decreased to 2L/min to avoid CO2 retention). She also was found to have tachypnea and tachycardia. Temperature is normal. Blood workup is remarkable for mild leukocytosis 11.4. There is no lactic acidosis. Hemoglobin and platelets are normal. VBG showed low pH of 7.31 and PCO2 59. There is hyponatremia 121, hyperkalemia of 5.2 and glucose 148. Troponin is 47.5 and BNP 204. CXR showed bilateral basilar opacities -pneumonia is not excluded edema. ECG showed LVH changes and sinus tachycardia (HR 107), ST elevation in lead III and ST depression in lateral leads. TTE (10/17/2023): EF 60-65%, mild LVH, impaired relaxation filling pattern, mild aortic stenosis, [id number] mitral regurgitation + stenosis, severe elevated right ventricular systolic pressure. ED tx furosemide 60 mg IV, vancomycin 1.5 g IV, Zosyn 3.375 g, NS 130 ml Hospital course: An 88-year-old female with restrictive lung disease, COPD, pulmonary hypertension, hypertension, and CKD, who is high functioning, presented with chest pain. She was diagnosed with acute NSTEMI based on ECG findings and elevated cardiac troponin I levels. Additionally, she was found to have acute heart failure and acute hyponatremia, with an initial sodium level of 120 and altered mental status. Her hospital course was further complicated by RUBINA, which has since resolved. Problem Acute Hypoxic and hypercapnic respiratory failure likely multifactorial: likely due underlying SHERMAN, underlying COPD, heart failure and acute NSTEMI. Hypoxic has improved with treatement of these underlying issues. Acute encephalopathy likely d/t initial hypoxia and Hyponatremia--This has resolved and her mental status is at baseline, lucid The patient with NSTEMI has been managed medically with Lovenox for 48 hours and is currently on Metoprolol, a statin, and Aspirin. An echo performed on 10/24 showed an EF > 70% with no regional wall motion abnormalities (RWMA). Despite treatment, she continues to experience intermittent chest pain exacerbated by exertion. Cardiology evaluation suggests concern for coronary artery disease (CAD) and ongoing angina. Treatment options, including optimizing medical management or cardiac catheterization to assess her coronary anatomy further, have been discussed with the patient. After deliberation with her family, she has chosen to undergo cardiac catheterization. Acute HFpEF--On presentation, treated with IV lasix and has resolved, lasix on hold Hypervolemic hyponatremia, likely secondary to heart failure, underlying siadh and SSRI. She was treaed with fluid restriction, Urea powder 30 gram daily x 2 doses and also ws given 250 cc of Normal saline. Her sodium level has gradually increased from 120 to now 132. Will continue to hold SSRI. Hyperkalemia. resolved, hold Valsartan CKD, stage 3B. Stable HTN Continue Metoprolol (in place of labetalol home meds) amlodipine. holding Valsartan (BP on lower side) Hyperlipidemia. Continue statin. Anxiety and depression. holding Lexapro can make hyponatremia worse. Psych saw her and recommend to reconsider SSRI Zoloft once hyponatremia stabilizes. Trazadone is recommended for sleep presently at 50 mg at bed time. Replace xanax with ativan for anxiety Hypothyroidism. TSH slightly high, Continue levothyroxine. GERD. Continue PPI. SHERMAN, to consider outpatient sleep study Code status: DNR DNI To [facility] for cardiac cath Time Attestation Discharge Coordination Time (in mins): 45 Quality: Safe Use of Opioids Does Pt have an Active Cancer Diagnosis on the Problem List?: No Quality: Stroke Does the patient have a stroke diagnosis?: No Physical Exam Vital Signs: Vital Signs: Last Vital Signs Temp 97.7 F 10/29/23 11:14 Pulse 79 10/29/23 11:14 Resp 20 10/29/23 11:14 BP 140/63 H 10/29/23 11:14 Pulse Ox 97 10/29/23 11:14 O2 Del Method Nasal Cannula 10/29/23 11:14 O2 Flow Rate 3 10/29/23 11:14 BMI result Body Mass Index 29.7 DS: Data Data Completed and Pending Labs on day of discharge: Laboratory Results - last 24 hr 10/29/23 07:34 Hold Purple Top SEE NOTE Sodium 132 L Potassium 4.7 Chloride 91 L Carbon Dioxide 34 H Anion Gap 12 BUN 59 H Creatinine 1.20 Estim Creat Clear Calc 26.9 Estimated GFR 42 Random Glucose 92 Calcium 9.7 Discharge Plan Discharge Anticipated Discharge Date/Time: 10/29/23 14:25 Patient Disposition: Xfer Acute Care Hospital Discharge Diagnosis: NSTEMI, acutehypoxic respiratory failure, Hyponatremia, RUBINA Referrals: Tk Lemus MD [Primary Care Provider] - 1 Week Discharge Medications: New lorazepam 0.5 mg Tablet 0.25 mg PO Q6H PRN (Reason: Anxiety/Restlessness) Qty: 30 0RF trazodone 50 mg Tablet 50 mg PO BEDTIME Qty: 30 0RF metoprolol tartrate 25 mg Tablet 25 mg PO TID Qty: 90 0RF Protocol: Hold for SBP/HR < HOLD for SBP < : 90 HOLD for HR < : 60 Continued omeprazole 20 mg Tablet,Delayed Release (Dr/Ec) 20 mg PO DAILY@0630 rosuvastatin 20 mg Tablet 20 mg PO BEDTIME amlodipine 2.5 mg Tablet 2.5 mg PO BEDTIME Qty: 90 0RF Protocol: Hold for SBP< HOLD for SBP < : 90 melatonin 3 mg Tablet 3 mg PO BEDTIME PRN (Reason: Sleep) ascorbic acid (vitamin C) [Vitamin C] 500 mg Tablet 500 mg PO DAILY aspirin [Adult Aspirin Regimen] 81 mg tablet,delayed release (DR/EC) 81 mg PO DAILY cholecalciferol (vitamin D3) 50 mcg (2,000 unit) capsule 50 mcg PO DAILY loratadine 10 mg capsule 10 mg PO BEDTIME levothyroxine [Synthroid] 50 mcg tablet 50 mcg PO DAILY@0600 Rx Instructions: patient receives brand (Synthroid) Discontinued alprazolam 0.25 mg Tablet 0.25 mg PO DAILY PRN (Reason: Anxiety) labetalol 100 mg Tablet 100 mg PO BID Qty: 180 0RF Protocol: Hold for SBP/HR < HOLD for SBP < : 90 HOLD for HR < : 60 escitalopram oxalate 5 mg Tablet 5 mg PO DAILY Qty: 90 0RF cilostazol 50 mg tablet 50 mg PO BID valsartan 160 mg tablet 160 mg PO DAILY Discharge Orders: Discharge Order (Routine); Ordered 10/29/23 Ordered By: Carter Merrill Diet: Advance to usual diet Activity on Discharge: As tolerated Stand Alone Forms: Patient Portal Discharge page Print Language: German Care Plan Goals: To [facility] for cardiac catherization to further manage heart condition Health Concerns: suspected coronary artery disease, NSTEMI, hyponatremia, RUBINA Plan of Treatment: Transfer to [facility] for cardiac catheterization Assessment: as above
--- NOTE | 2023-11-03 07:04 | P.CDIM_ITS ---
PROVIDER RESPONSE TEXT: To clarify, the appropriate diagnosis supported by the clinical indicators: Metabolic QUERY TEXT: PHYSICIAN'S DOCUMENTATION REQUEST Date of Query: 10/27/2023 09:32 AM EDT Patient Name: Effie Aleman Admit Date: 10/24/2023 Dear Carter Merrill, A review of the medical record indicates additional documentation may be needed. Please review below and update the documentation accordingly. Clinical Indicators: Acute encephalopathy likely d/t hypoxia and hyponatremia, resolved, at baseline. Based on the above, please further specify, in the Progress Notes, the known or suspected type of the documented encephalopathy if known: Metabolic Toxic Toxic metabolic Other (explain) Clinically unable to determine (explain) Thank you, Mendy Wyatt, CCS, CDIS Use of terms such as suspected, likely, concern for, or probable (associated with a specific diagnosi s that is being evaluated, monitored, or treated as if it exists) are acceptable and can be coded in the inpatient se tting, when documented at the time of discharge. Please use your independent medical judgment in providing your response. THIS QUERY IS PART OF THE PERMANENT MEDICAL RECORD
== END 2023-10-29 15:00 | disposition short-term general hospital (02) | DRG 280 ==
LOC: HO.ED 10-24 00:08 → HO.EDOVER 10-24 01:04 → HO.IMC 10-24 15:06
PROVIDERS: Internal Medicine Nephrology; Student in an Organized Health Care Education/Training Program; Admitting Provider Internal Medicine; Emergency Provider Emergency Medicine; PCP Internal Medicine; Visit Provider Internal Medicine
DX: I13.0 Hypertensive heart and chronic kidney disease with heart failure and stage 1 through stage 4 chronic kidney disease, or unspecified chronic kidney disease (principal); G93.41 Metabolic encephalopathy; I21.4 Non-ST elevation (NSTEMI) myocardial infarction; I50.33 Acute on chronic diastolic (congestive) heart failure; J96.21 Acute and chronic respiratory failure with hypoxia; J96.22 Acute and chronic respiratory failure with hypercapnia; E87.1 Hypo-osmolality and hyponatremia; N17.9 Acute kidney failure, unspecified; Z66 Do not resuscitate; I27.23 Pulmonary hypertension due to lung diseases and hypoxia; I25.10 Atherosclerotic heart disease of native coronary artery without angina pectoris; F41.9 Anxiety disorder, unspecified; F32.A Depression, unspecified; G47.33 Obstructive sleep apnea (adult) (pediatric); E78.5 Hyperlipidemia, unspecified; I05.0 Rheumatic mitral stenosis; E87.5 Hyperkalemia; N18.32 Chronic kidney disease, stage 3b; E03.9 Hypothyroidism, unspecified; K21.9 Gastro-esophageal reflux disease without esophagitis; J43.9 Emphysema, unspecified; Z20.822 Contact with and (suspected) exposure to COVID-19; Z87.891 Personal history of nicotine dependence; Z79.82 Long term (current) use of aspirin; Z79.890 Hormone replacement therapy; Z79.899 Other long term (current) drug therapy
CPT/HCPCS: 0241U; 36415; 71045; 80048; 82533; 82803; 83605; 83735; 83880; 83935; 84145; 84295; 84300; 84443; 84484; 85025; 85379; 87040; 92950; 93005; 93308; 93970; 99285; J1650; J1940; J2543; J3371; Q9957

== ENCOUNTER → 2023-10-23 21:40 | Outpatient (BNV) | payer MEDICARE, OTHER, SELFPAY | PROVIDERS: Admitting Provider Internal Medicine; Emergency Provider Emergency Medicine; PCP Internal Medicine; Visit Provider Internal Medicine | DX: R07.9 Chest pain, unspecified (principal); R00.0 Tachycardia, unspecified; R94.31 Abnormal electrocardiogram [ECG] [EKG] | CPT/HCPCS: 93010 ==

== ENCOUNTER 2023-10-24 00:55 | Outpatient (BNV) | payer MEDICARE, OTHER, SELFPAY | END 2023-10-25 07:00 | PROVIDERS: Admitting Provider Internal Medicine; Emergency Provider Emergency Medicine; PCP Internal Medicine; Visit Provider Internal Medicine | DX: I21.4 Non-ST elevation (NSTEMI) myocardial infarction (principal); I42.2 Other hypertrophic cardiomyopathy | CPT/HCPCS: 93308 ==

== ENCOUNTER 2023-10-24 00:55 | Outpatient (BNV) | payer MEDICARE, OTHER, SELFPAY | END 2023-10-28 01:12 | PROVIDERS: Admitting Provider Internal Medicine; Emergency Provider Emergency Medicine; PCP Internal Medicine; Visit Provider Internal Medicine Cardiovascular Disease | DX: R07.9 Chest pain, unspecified (principal); R00.0 Tachycardia, unspecified; R94.31 Abnormal electrocardiogram [ECG] [EKG] | CPT/HCPCS: 93010 ==

== ENCOUNTER 2023-10-24 00:55 | Outpatient (BNV) | payer MEDICARE, OTHER, SELFPAY | END 2023-10-29 11:35 | PROVIDERS: Admitting Provider Internal Medicine; Emergency Provider Emergency Medicine; PCP Internal Medicine; Visit Provider Internal Medicine Cardiovascular Disease | DX: R07.9 Chest pain, unspecified (principal); R94.31 Abnormal electrocardiogram [ECG] [EKG] | CPT/HCPCS: 93010 ==

== ENCOUNTER → 2023-10-24 00:55 | Outpatient (BNV) | payer MEDICARE, OTHER, SELFPAY | PROVIDERS: Admitting Provider Internal Medicine; Emergency Provider Emergency Medicine; PCP Internal Medicine; Visit Provider Internal Medicine | DX: N17.9 Acute kidney failure, unspecified (principal) | CPT/HCPCS: 99223; 99232; 99233; 99239; 99499 ==

== ENCOUNTER → 2023-10-24 00:55 | Outpatient (BNV) | payer MEDICARE, OTHER, SELFPAY | PROVIDERS: Admitting Provider Internal Medicine; Emergency Provider Emergency Medicine; PCP Internal Medicine; Visit Provider Hospitalist | DX: I21.4 Non-ST elevation (NSTEMI) myocardial infarction (principal); J96.21 Acute and chronic respiratory failure with hypoxia; J96.22 Acute and chronic respiratory failure with hypercapnia; E87.1 Hypo-osmolality and hyponatremia | CPT/HCPCS: 99223; 99232 ==

== ENCOUNTER → 2023-10-24 00:55 | Outpatient (BNV) | payer MEDICARE, OTHER, SELFPAY | PROVIDERS: Admitting Provider Internal Medicine; Emergency Provider Emergency Medicine; PCP Internal Medicine; Visit Provider Internal Medicine | DX: I21.4 Non-ST elevation (NSTEMI) myocardial infarction (principal); N18.32 Chronic kidney disease, stage 3b; I27.20 Pulmonary hypertension, unspecified; I05.0 Rheumatic mitral stenosis | CPT/HCPCS: 93010; 99223; 99233 ==

== ENCOUNTER → 2023-10-24 00:55 | Outpatient (BNV) | payer MEDICARE, OTHER, SELFPAY | PROVIDERS: Admitting Provider Internal Medicine; Emergency Provider Emergency Medicine; PCP Internal Medicine; Visit Provider Internal Medicine Nephrology | DX: N17.9 Acute kidney failure, unspecified (principal); N18.32 Chronic kidney disease, stage 3b; E87.1 Hypo-osmolality and hyponatremia | CPT/HCPCS: 99223; 99232 ==

== ENCOUNTER → 2023-10-24 00:55 | Outpatient (BNV) | payer MEDICARE, OTHER, SELFPAY | PROVIDERS: Admitting Provider Internal Medicine; Emergency Provider Emergency Medicine; PCP Internal Medicine; Visit Provider Psychiatry & Neurology Psychiatry | DX: F41.1 Generalized anxiety disorder (principal) | CPT/HCPCS: 99222 ==

== ENCOUNTER → 2023-10-30 23:59 | Outpatient (BNV) | payer MEDICARE, OTHER, SELFPAY | PROVIDERS: PCP Internal Medicine; Visit Provider Internal Medicine Cardiovascular Disease | DX: I21.4 Non-ST elevation (NSTEMI) myocardial infarction (principal) | CPT/HCPCS: 93460; 99152 ==

== ENCOUNTER 2023-11-17 10:56 | Outpatient (AMB) | payer MEDICARE, OTHER, SELFPAY ==
--- NOTE | 2023-11-17 11:09 | MHC.OFFVIS ---
Vital Signs 11/17/23 11:10 Height 4 ft 11 in Weight 140 lb BMI 28.3 BP 102/50 L Blood Pressure Location Lt brachial Position Sitting Pulse 91 Pulse Source Pulse Oximeter Pulse Oximetry (%) 100 Oxygen Delivery Method Nasal Cannula Oxygen Flow Rate 2 Intake Visit Reasons: COPD Intake Note: pt is here for follow up and states she is using the oxygen, just starting to move around the house, home about 12 days, vna is going out, ot and pt also. 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: No Allergies erythromycin base [ERYTHROMYCIN BASE] Allergy (Intermediate, Verified 11/17/23 14:59) Itching lisinopril Allergy (Intermediate, Verified 11/17/23 14:59) throat itchy simvastatin [From Zocor] Adverse Reaction (Severe, Verified 11/17/23 14:59) Rash Medication List - Last Reconciled 11/17/23 by Aziza Keller MD ascorbic acid (vitamin C) (Vitamin C) 500 mg PO DAILY aspirin (Adult Aspirin Regimen) 81 mg PO DAILY cholecalciferol (vitamin D3) 50 mcg PO DAILY cilostazol 50 mg PO BID clopidogrel (Plavix) 75 mg PO DAILY furosemide (Lasix) 20 mg PO DAILY ipratropium bromide 2 sprays intranasal TID levothyroxine (Synthroid) 50 mcg PO DAILY@0600 loratadine 10 mg PO BEDTIME lorazepam 0.25 mg (1/2 x 0.5 mg) PO Q6H PRN melatonin 3 mg PO BEDTIME PRN metoprolol tartrate 100 mg See Protocol PO DAILY mirtazapine 7.5 mg PO DAILY omeprazole 20 mg PO DAILY@0630 rosuvastatin 20 mg PO BEDTIME trazodone 50 mg PO BEDTIME urea 1 packet PO DAILY valsartan 40 mg PO DAILY Do you need a note to return to daycare/school/sports/work: No HPI HPI COPD: Details: This 88 years old female is here today for follow-up after her recent hospitalization. Since her last visit to me, she has been hospitalized at [facility] initially from 10/15 to 10/18 . And then from 10/23 to 10/28 with acute congestive heart failure and respiratory failure. She was found to have NSTMI , in referred to [facility] for cardiac catheterization. Cardiac catheterization showed that she had mitral valve disease, and severe pulmonary hypertension. During her hospitalization she was also found to have hypoxemia and hypercapnia. Initially treated with BiPAP, and oxygen, her hypercapnia did improve , down to pCO2 level of 42 and she was maintained on oxygen. At [facility] during her cardiac catheterization and follow-up she was noted to have hypoxemia, and started on oxygen supplementation. Since her discharge home, we did arranged to have Oxygen stationary as well as portable unit at home. She is using oxygen 1 to 1.5 L/minute at rest, and 2 L/minute when she comes outdoors. She is feeling much better, denies any dyspnea at rest, Sleeps fairly good at night. Patient is being followed very closely by the [facility] visiting nurses . She does have incentive spirometry device at home but has not been using it much. [facility] Medical History (Updated 11/17/23 @ 15:20 by Aziza Keller MD) COPD (chronic obstructive pulmonary disease) Respiratory failure Respiratory failure with hypoxia and hypercapnia Generalized anxiety disorder Hypertension Restrictive lung disease COVID-19 vaccine series completed Heartburn Hypothyroid PVD (peripheral vascular disease) HTN (hypertension) Cough Allergic rhinitis Surgical History Hx of tonsillectomy Hx of excision of mass H/O colonoscopy Social History Household Members: None Housing: House Are you a primary insurance healthcare representative to a significant other at home: Yes (-disabled ) Do you presently have visiting nurse or other home services: No Alcohol intake: never Comment: Medicated with Tylenol 650 mg PO Patient Tobacco Use Status: Former Tobacco user Tobacco use type: Cigarette Cigarettes Per Day: 10 service: Yes Current occupational status: 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 Review of Systems Const All systems reviewed & are unremarkable except as noted in HPI and below Eyes Reports no additional complaints ENT Reports nasal congestion and Reports nasal discharge (Almost daily) Card Reports no additional complaints Resp Reports as per HPI GI Reports no additional complaints Reports no additional complaints Musc Reports no additional complaints Skin/Breast Reports system reviewed and no additional complaints, except as documented Neuro Reports no additional complaints Psych Reports no additional complaints Physical Exam Vital Signs: Last Vital Signs Pulse 91 11/17/23 11:10 BP 102/50 L 11/17/23 11:10 Pulse Ox 100 11/17/23 11:10 Oxygen Delivery Method Nasal Cannula 11/17/23 11:10 Oxygen Flow Rate 2 11/17/23 11:10 BMI result Body Mass Index 28.3 Const General: healthy appearing, comfortable, no acute distress, alert and awake Orientation/consciousness: patient oriented x3 HEENT Head: Yes normal to inspection General nose exam: No nasal polyps present, No nasal discharge present and Other nasal findings present (Mild nasal congestion) Face and sinus: Yes sinuses nontender Mouth: oropharynx normal Throat: Yes posterior oropharynx normal Eyes General: appearance normal, both eyes and all related structures Neck Neck: Yes normal visual inspection, Yes no lymphadenopathy, Yes trachea midline and Yes no JVD Thyroid: Thyroid normal Chest Chest palpation & inspection: normal inspection of the chest, normal palpation of entire chest wall and no tenderness Resp Other: Percussion note resonant, breath sounds are slightly distant but equal. On both sides No wheezes are heard. There are no wheezes or crackles . Cardio Palpation: normal PMI Rate: regular rate Rhythm: regular rhythm Heart sounds: no gallops and no murmurs Peripheral pulses: Peripheral pulses 2+ throughout GI Palpation (GI): Soft to palpation, Tenderness to palpation present (GI), No hepatosplenomegaly present and Palpable mass present Auscultation: normal bowel sounds Back/Spine/Pelvis Thoracic/Lumbar Spine: thoracic and lumbar spine normal to inspection Skin General skin exam: no rashes or lesions noted Neuro General: patient oriented x3 and no focal motor deficits Cranial nerves: Yes CN's II-XII intact bilaterally Extrem General: Yes normal to inspection, Yes no clubbing, cyanosis or edema and Yes no calf tenderness Psych Appearance: grossly normal and well kempt Speech and movement: Normal speech and movement present Assessment & Plan Assessment & Plan (1) Respiratory failure with hypoxia and hypercapnia: Comment: Patient was admitted with congestive heart failure. She was found to be hypoxic as well as with hypercapnia. After aggressive treatment in the hospital the O2 sat had improved to normal level and pCO2 level also came down to normal ( 42 mm Hg) At [facility] she was again found to be hypoxemic. Code(s): J96.91 - Respiratory failure, unspecified with hypoxia; J96.92 - Respiratory failure, unspecified with hypercapnia Category: Medical Qualifiers: Chronicity: acute on chronic Qualified Code(s): J96.21 - Acute and chronic respiratory failure with hypoxia; J96.22 - Acute and chronic respiratory failure with hypercapnia Plan: Patient has been started on oxygen she is using it regularly 24 hours a day. She is advised to use O2 2 L/minute at night while sleeping. She is advised to keep it between 1 to 1.5 L/minute during the daytime . Do frequent checking of O2 sat level and goal is to keep it above 90% . Advised to do deep breathing exercises with the incentive spirometery device at least 3 to 4 times a day. Patient also advised to use pursed lip breathing technique, however it is hard. For her to understand VENOUS BLOOD GAS STUDY REPEATED TODAY . (2) Allergic rhinitis: Comment: CHRONIC PERRENIAL, MILD AND WELL CONTROLLED . * has also seen ENT specialist Dr. Faustin . Code(s): J30.9 - Allergic rhinitis, unspecified Category: Medical Plan: OK to use loratadine 10 mg are cetirizine 10 mg once a day p.r.n. for nasal congestion IPRATROPIUM BROMIDE NASAL SPRAY 2 SPRAY IN EACH NOSTRIL T.I.D. (3) Restrictive lung disease: Comment: Spirometry showed moderately severe restrictive pattern, It is most likely secondary to her initial COVID pneumonia in June 2021. Code(s): J98.4 - Other disorders of lung Category: Medical Plan: TX : continue doing deep breathing exercises 2 or 3 times a day . (4) Pulmonary hypertension: Comment: As per cardiac catheterization she has severe mitral valve disease, and pulmonary hypertension. Patient is high risk for any surgical repair of mitral valve Code(s): I27.20 - Pulmonary hypertension, unspecified Category: Medical Plan: The best option of treatment for pulmonary hypertension is oxygen supplementation, as noted under respiratory failure. Orders: Orders Venous Blood Gas Today I27.20 - Pulmonary hypertension, unspecified, J30.9 - Allergic rhinitis, unspecified, J96.90 - Respiratory failure, unspecified, unspecified whether with hypoxia or hypercapnia, J98.4 - Other disorders of lung Coding Level of Care Code Est Pt Level 4 (48806) Diagnoses Acute on chronic respiratory failure with hypoxia and hypercapnia J96.21; J96.22 Chronicity: acute on chronic Allergic rhinitis J30.9 Restrictive lung disease J98.4 Pulmonary hypertension I27.20
[2023-11-17 11:10] VITALS: BP 102/50; PULSE 91; O2SAT 100; BMI 28.3
== END 2023-11-17 11:43 | disposition home or self-care (01) ==
PROVIDERS: PCP Internal Medicine; Visit Provider Internal Medicine
DX: J96.21 Acute and chronic respiratory failure with hypoxia (principal); J96.22 Acute and chronic respiratory failure with hypercapnia; J30.9 Allergic rhinitis, unspecified; J98.4 Other disorders of lung; I27.20 Pulmonary hypertension, unspecified
CPT/HCPCS: 99214

== ENCOUNTER 2023-11-17 10:56 | Outpatient (REF) | payer MEDICARE, OTHER, SELFPAY ==
[2023-11-17 12:18] LABS: VBG Base Excess 9.5 mmol/L; VBG pCO2 64 mmHg; VBG pH 7.36 (7.32-7.43); VBG pO2 25 mmHg
[2023-11-17 12:19] LABS: VBG HCO3 36 mmol/L (22-26); VBG O2 % Saturation < 30.0 %; Venous Blood Gas Refer to POC result
== END 2023-11-17 10:57 | disposition home or self-care (01) ==
LOC: HO.LAB 10:56
PROVIDERS: PCP Internal Medicine; Visit Provider Internal Medicine
DX: I27.20 Pulmonary hypertension, unspecified (principal); J44.9 Chronic obstructive pulmonary disease, unspecified; J96.21 Acute and chronic respiratory failure with hypoxia; J96.22 Acute and chronic respiratory failure with hypercapnia; J30.9 Allergic rhinitis, unspecified; J98.4 Other disorders of lung
CPT/HCPCS: 36415; 82803; 99212

== ENCOUNTER 2023-12-22 13:37 | Outpatient (AMB) | payer MEDICARE, OTHER, SELFPAY ==
--- NOTE | 2023-12-22 13:43 | MHC.OFFVIS ---
Vital Signs 12/22/23 13:44 Height 4 ft 11 in BP 102/48 L Blood Pressure Location Lt brachial Position Sitting Pulse 69 Pulse Source Pulse Oximeter Pulse Oximetry (%) 99 Oxygen Delivery Method Nasal Cannula Oxygen Flow Rate 1 Intake Visit Reasons: COPD Intake Note: pt is here for follow up and is fatigued al the time, but has been having diarrhea since starting new medication, could it be related? no appetite, food doesn't have much taste Spa Assistant Manager Required: No Allergies erythromycin base [ERYTHROMYCIN BASE] Allergy (Intermediate, Verified 12/22/23 13:57) Itching lisinopril Allergy (Intermediate, Verified 12/22/23 13:57) throat itchy simvastatin [From Zocor] Adverse Reaction (Severe, Verified 12/22/23 13:57) Rash Medication List - Last Reconciled 12/22/23 by Aziza Keller MD acetazolamide 250 mg PO DAILY 30 days ascorbic acid (vitamin C) (Vitamin C) 500 mg PO DAILY aspirin (Adult Aspirin Regimen) 81 mg PO DAILY cholecalciferol (vitamin D3) 50 mcg PO DAILY cilostazol 50 mg PO BID clopidogrel (Plavix) 75 mg PO DAILY furosemide (Lasix) 20 mg PO DAILY ipratropium bromide 2 sprays intranasal TID levothyroxine (Synthroid) 50 mcg PO DAILY@0600 loratadine 10 mg PO BEDTIME lorazepam 0.25 mg (1/2 x 0.5 mg) PO Q6H PRN melatonin 3 mg PO BEDTIME PRN metoprolol tartrate 100 mg See Protocol PO DAILY mirtazapine 7.5 mg PO DAILY omeprazole 20 mg PO DAILY@0630 rosuvastatin 20 mg PO BEDTIME trazodone 50 mg PO BEDTIME urea 1 packet PO DAILY valsartan 40 mg PO DAILY Do you need a note to return to daycare/school/sports/work: No HPI HPI COPD: Details: THIS 88 YEARS OLD VERY PLEASANT FEMALE COMES IN TODAY, IN WHEELCHAIR. MAIN ISSUE IS LOT OF FATIGUE, AND SHE ALSO HAS HAD LOW-GRADE DIARRHEA SAYS SINCE LAST MONTH, WONDERING IF IT IS DUE TO ACETAZOLAMIDE. BREATHING HAS BEEN RELATIVELY STABLE WITH NO COUGH OR WHEEZING. CONGESTIVE HEART FAILURE IS ALSO UNDER GOOD CONTROL EXCEPT FOR SOME PEDAL EDEMA. SHE SLEEPS FAIRLY WELL AT NIGHT. [facility], [facility] Medical History COPD (chronic obstructive pulmonary disease) Respiratory failure Respiratory failure with hypoxia and hypercapnia Generalized anxiety disorder Hypertension Restrictive lung disease COVID-19 vaccine series completed Heartburn Hypothyroid PVD (peripheral vascular disease) HTN (hypertension) Cough Allergic rhinitis Surgical History Hx of tonsillectomy Hx of excision of mass H/O colonoscopy Social History Household Members: None Housing: House Are you a primary field care advocate to a significant other at home: Yes (-disabled ) Do you presently have visiting nurse or other home services: No Alcohol intake: never Comment: Medicated with Tylenol 650 mg PO Patient Tobacco Use Status: Former Tobacco user Tobacco use type: Cigarette Cigarettes Per Day: 10 service: Yes Current occupational status: 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 Review of Systems Const All systems reviewed & are unremarkable except as noted in HPI and below Eyes Reports no additional complaints ENT Reports nasal congestion and Reports nasal discharge (Almost daily) Card Reports no additional complaints Resp Reports as per HPI GI Reports no additional complaints Reports no additional complaints Musc Reports no additional complaints Skin/Breast Reports system reviewed and no additional complaints, except as documented Neuro Reports no additional complaints Psych Reports no additional complaints Physical Exam Vital Signs: Last Vital Signs Pulse 69 12/22/23 13:44 BP 102/48 L 12/22/23 13:44 Pulse Ox 99 12/22/23 13:44 Oxygen Delivery Method Nasal Cannula 12/22/23 13:44 Oxygen Flow Rate 1 12/22/23 13:44 Const General: healthy appearing, comfortable, no acute distress, alert and awake Orientation/consciousness: patient oriented x3 HEENT Head: Yes normal to inspection General nose exam: No nasal polyps present, No nasal discharge present and Other nasal findings present (Mild nasal congestion) Face and sinus: Yes sinuses nontender Mouth: oropharynx normal Throat: Yes posterior oropharynx normal Eyes General: appearance normal, both eyes and all related structures Neck Neck: Yes normal visual inspection, Yes no lymphadenopathy, Yes trachea midline and Yes no JVD Thyroid: Thyroid normal Chest Chest palpation & inspection: normal inspection of the chest, normal palpation of entire chest wall and no tenderness Resp Other: Percussion note resonant, breath sounds are slightly distant but equal. On both sides No wheezes are heard. There are no wheezes or crackles . Cardio Palpation: normal PMI Rate: regular rate Rhythm: regular rhythm Heart sounds: no gallops and no murmurs Peripheral pulses: Peripheral pulses 2+ throughout GI Palpation (GI): Soft to palpation, Tenderness to palpation present (GI), No hepatosplenomegaly present and Palpable mass present Auscultation: normal bowel sounds Back/Spine/Pelvis Thoracic/Lumbar Spine: thoracic and lumbar spine normal to inspection Skin General skin exam: no rashes or lesions noted Neuro General: patient oriented x3 and no focal motor deficits Cranial nerves: Yes CN's II-XII intact bilaterally Extrem General: Yes normal to inspection, Yes no calf tenderness and Yes edema (2 + PITTING EDEMA AROUND THE ANKLES LOWER PARTS OF THE LEGS) Psych Appearance: grossly normal and well kempt Speech and movement: Normal speech and movement present Results Reviewed Results Reviewed: VENOUS BGs MUCH IMPROVED PH 7.32, PCO2 48 , HCO2 25 Assessment & Plan Assessment & Plan (1) Restrictive lung disease: Comment: Spirometry showed moderately severe restrictive pattern, It is most likely secondary to general weakness and moderate obesity. Code(s): J98.4 - Other disorders of lung Category: Medical Plan: Deep breathing exercises are explained to the patient and she is motivated to do them several times during the day (2) Pulmonary hypertension: Comment: As per cardiac catheterization she has severe mitral valve disease, and pulmonary hypertension. Patient is high risk for any surgical repair of mitral valve Code(s): I27.20 - Pulmonary hypertension, unspecified Category: Medical Plan: Continued use of oxygen should to reduce the level of pulmonary hypertension (3) Respiratory failure: Comment: Patient has chronic respiratory failure, with hypoxemia and CO2 retention. Clinically definitely improved with the use of oxygen, Level of pCO2 has improved with the use of acetazolamide . Code(s): J96.90 - Respiratory failure, unspecified, unspecified whether with hypoxia or hypercapnia Category: Medical Plan: Continue O2 2 L/minute at least for 16 hours in 24 hours. When resting at home she can go without the oxygen for short intervals. To give rest to her nostrils Deep breathing exercises with pursed lip technique explained to the patient and she is very motivated to do these exercises every hour while awake. (4) COPD (chronic obstructive pulmonary disease): Comment: CLINICALLY IT SEEMS THAT PATIENT MAY HAVE CHRONIC OBSTRUCTIVE PULMONARY DISEASE. PATIENT IS NOT FIT FOR UNDERGOING COMPLETE PULMONARY FUNCTION TEST AT THIS TIME CLINICALLY THERE IS NO EVIDENCE OF ANY WHEEZING, AND IF AT ALL SHE HAS COPD IT WILL BE VERY MILD. Code(s): J44.9 - Chronic obstructive pulmonary disease, unspecified Category: Medical Plan: NO NEED OF ANY BRONCHODILATOR THERAPY (5) Allergic rhinitis: Comment: CHRONIC PERRENIAL, MILD AND WELL CONTROLLED . * has also seen ENT specialist Dr. Faustin . Code(s): J30.9 - Allergic rhinitis, unspecified Category: Medical Plan: MAY CONTINUE TO USE LORATADINE 10 MG ONCE A DAY P.R.N. Orders: Orders Venous Blood Gas 12/22/23 J44.9 - Chronic obstructive pulmonary disease, unspecified, J96.90 - Respiratory failure, unspecified, unspecified whether with hypoxia or hypercapnia Electrolytes 12/22/23 J44.9 - Chronic obstructive pulmonary disease, unspecified, J96.90 - Respiratory failure, unspecified, unspecified whether with hypoxia or hypercapnia Creatinine 12/22/23 J96.90 - Respiratory failure, unspecified, unspecified whether with hypoxia or hypercapnia Blood Urea Nitrogen 12/22/23 J96.90 - Respiratory failure, unspecified, unspecified whether with hypoxia or hypercapnia Coding Level of Care Code Est Pt Level 3 (14974) Diagnoses Restrictive lung disease J98.4 Pulmonary hypertension I27.20 Respiratory failure J96.90 COPD (chronic obstructive pulmonary disease) J44.9 Allergic rhinitis J30.9
[2023-12-22 13:44] VITALS: BP 102/48; PULSE 69; O2SAT 99
== END 2023-12-22 14:15 | disposition home or self-care (01) ==
PROVIDERS: PCP Internal Medicine; Visit Provider Internal Medicine
DX: J98.4 Other disorders of lung (principal); I27.20 Pulmonary hypertension, unspecified; J96.90 Respiratory failure, unspecified, unspecified whether with hypoxia or hypercapnia; J44.9 Chronic obstructive pulmonary disease, unspecified; J30.9 Allergic rhinitis, unspecified
CPT/HCPCS: 99213

== ENCOUNTER 2023-12-22 13:37 | Outpatient (REF) | payer MEDICARE, OTHER, SELFPAY ==
[2023-12-22 14:45] LABS: Venous Blood Gas Refer to POC result
[2023-12-22 14:46] LABS: VBG Base Excess -0.9 mmol/L; VBG HCO3 25 mmol/L (22-26); VBG pCO2 48 mmHg; VBG pH 7.32 (7.32-7.43); VBG pO2 29 mmHg
[2023-12-22 15:45] LABS: Anion Gap 16 (12-20); Blood Urea Nitrogen 42 mg/dL (9-16); Carbon Dioxide 23 mmol/L (22-29); Chloride 97 mmol/L (96-108); Estimated Glomerular Filt Rate 20; Potassium 3.3 mmol/L (3.3-5.1); Sodium 133 mmol/L (135-145)
== END 2023-12-22 13:38 | disposition home or self-care (01) ==
LOC: HO.LAB 13:37
PROVIDERS: PCP Internal Medicine; Visit Provider Internal Medicine
DX: J44.9 Chronic obstructive pulmonary disease, unspecified (principal); J96.90 Respiratory failure, unspecified, unspecified whether with hypoxia or hypercapnia; J98.4 Other disorders of lung; I27.20 Pulmonary hypertension, unspecified; J30.9 Allergic rhinitis, unspecified
CPT/HCPCS: 36415; 80051; 82565; 82803; 84520; 99212

== ENCOUNTER 2023-12-31 13:14 | Outpatient (REF) | payer MEDICARE, OTHER, SELFPAY ==
[2023-12-31 13:37] LABS: MANUAL DIFF FLAG NO
[2023-12-31 13:50] LABS: Basophils Absolute Auto 0.1 X10*3/uL (0.0-0.2); Basophils Percent Auto 0.6 % (0-2); Eosinophils Absolute Auto 0.4 X10*3/uL (0.0-0.4); Eosinophils Percent Auto 4.2 % (0-4); Hematocrit 31.9 % (37.0-47.0); Hemoglobin 10.5 g/dl (12.0-16.0); Imm Gran Abs Auto 0.03 X10*3/uL (0.00-0.03); Imm Gran Pct Auto 0.3 % (0.0-0.4); Lymphocytes Absolute Auto 0.7 X10*3/uL (1.2-4.9); Lymphocytes Percent Auto 7.2 % (20-40); Mean Corpuscular HGB Conc 32.9 g/dl (31.0-35.0); Mean Corpuscular Hemoglobin 29.4 pg (27.0-33.0); Mean Corpuscular Volume 89.4 fL (80.0-98.0); Mean Platelet Volume 10.6 fL (9.4-12.3); Monocytes Absolute Auto 0.9 X10*3/uL (0.1-1.2); Monocytes Percent Auto 8.9 % (2-11); Neutrophils Absolute Auto 7.9 x10*3/uL (2.0-8.3); Neutrophils Percent Auto 78.8 % (45-73); Platelet Count 230 X10*3/uL (160-400); Red Blood Count 3.57 X10*6/uL (4.20-5.50); Red Cell Distribution Width 14.7 % (11.0-16.0)
[2023-12-31 14:57] LABS: Ferritin 328 ng/mL (10-250)
[2023-12-31 15:08] LABS: Alanine Aminotransferase 12 U/L (0-31); Albumin Level 3.3 g/dL (3.5-5.0); Alkaline Phosphatase 84 U/L (39-117); Anion Gap 14 (12-20); Aspartate Amino Transferase 19 U/L (5-31); Bilirubin Total 0.5 mg/dL (0.0-1.0); Blood Urea Nitrogen 23 mg/dL (9-16); Calcium 8.6 mg/dL (8.4-10.2); Carbon Dioxide 30 mmol/L (22-29); Chloride 92 mmol/L (96-108); Estimated Glomerular Filt Rate 30; Glucose Random 133 mg/dL (60-115); Iron 41 mcg/dL (30-160); Magnesium 1.5 mg/dL (1.6-2.6); Percent Iron Saturation 20 % (15-50); Potassium 2.5 mmol/L (3.3-5.1); Sodium 133 mmol/L (135-145); Total Iron Binding Capacity 206 mcg/dL (228-428); Total Protein 6.5 g/dL (6.5-8.0); Unsaturated Iron Binding 165 ug/dL
[2023-12-31 15:12] LABS: Folate 10.2 ng/mL (> or = 4.0); Vitamin B12 803 pg/mL (200-900)
== END 2023-12-31 13:15 | disposition home or self-care (01) ==
LOC: HO.LAB 13:14
PROVIDERS: PCP Internal Medicine; Visit Provider Internal Medicine
DX: I12.9 Hypertensive chronic kidney disease with stage 1 through stage 4 chronic kidney disease, or unspecified chronic kidney disease (principal); N18.32 Chronic kidney disease, stage 3b; R35.1 Nocturia; R19.7 Diarrhea, unspecified; D64.9 Anemia, unspecified
CPT/HCPCS: 36415; 80053; 82607; 82728; 82746; 83540; 83735; 84443; 85025

== ENCOUNTER 2024-01-01 11:22 | Outpatient (REF) | payer MEDICARE, OTHER, SELFPAY ==
[2024-01-01 12:25] LABS: CDiff Gene PCR NEGATIVE (Negative)
== END 2024-01-01 11:23 | disposition home or self-care (01) ==
LOC: HO.LNP 11:22
PROVIDERS: Visit Provider Internal Medicine
DX: R19.7 Diarrhea, unspecified (principal)
CPT/HCPCS: 87493

== ENCOUNTER 2024-01-02 11:06 | Outpatient (REF) | payer MEDICARE, OTHER, SELFPAY ==
[2024-01-02 13:30] LABS: Adenovirus F 40/41 Not Detected (Not Detect.); Astrovirus Not Detected (Not Detect.); Campylobacter Not Detected (Not Detect.); Cryptosporidium Not Detected (Not Detect.); Cyclospora cayetanensis Not Detected (Not Detect.); E. coli EAEC Not Detected (Not Detect.); E. coli EPEC Not Detected (Not Detect.); E. coli ETEC Not Detected (Not Detect.); E. coli STEC Not Detected (Not Detect.); Entamoeba histolytica Not Detected (Not Detect.); Giardia lamblia Not Detected (Not Detect.); Norovirus GI/GII Not Detected (Not Detect.); Plesiomonas shigelloides Not Detected (Not Detect.); Rotavirus A Not Detected (Not Detect.); Salmonella Not Detected (Not Detect.); Sapovirus Not Detected (Not Detect.); Shigella sp./EIEC Not Detected (Not Detect.); Vibrio Not Detected (Not Detect.); Vibrio Cholerae Not Detected (Not Detect.); Yersinia enterocolitica Not Detected (Not Detect.)
== END 2024-01-02 11:07 | disposition home or self-care (01) ==
LOC: HO.LNP 11:06
PROVIDERS: Visit Provider Internal Medicine
DX: R19.7 Diarrhea, unspecified (principal)
CPT/HCPCS: 36415; 80048; 83735; 87507

== ENCOUNTER 2024-01-02 15:05 | Outpatient (REF) | payer MEDICARE, OTHER, SELFPAY ==
[2024-01-02 17:07] LABS: Anion Gap 11 (12-20); Blood Urea Nitrogen 28 mg/dL (9-16); Calcium 8.9 mg/dL (8.4-10.2); Carbon Dioxide 32 mmol/L (22-29); Chloride 94 mmol/L (96-108); Estimated Glomerular Filt Rate 27; Glucose Random 117 mg/dL (60-115); Magnesium 1.6 mg/dL (1.6-2.6); Potassium 3.2 mmol/L (3.3-5.1); Sodium 134 mmol/L (135-145)
== END 2024-01-02 15:06 | disposition home or self-care (01) ==
LOC: HO.LAB 15:05
PROVIDERS: PCP Internal Medicine; Visit Provider Internal Medicine
DX: Z13.89 Encounter for screening for other disorder (principal)
CPT/HCPCS: 36415; 80048; 83735

== ENCOUNTER 2024-01-06 14:37 | Outpatient (REF) | payer MEDICARE, OTHER, SELFPAY ==
[2024-01-06 16:01] LABS: Anion Gap 13 (12-20); Blood Urea Nitrogen 34 mg/dL (9-16); Calcium 9.8 mg/dL (8.4-10.2); Carbon Dioxide 30 mmol/L (22-29); Chloride 95 mmol/L (96-108); Estimated Glomerular Filt Rate 26; Glucose Random 123 mg/dL (60-115); Potassium 4.7 mmol/L (3.3-5.1); Sodium 133 mmol/L (135-145)
== END 2024-01-06 14:38 | disposition home or self-care (01) ==
LOC: HO.LAB 14:37
PROVIDERS: Absent Provider Internal Medicine; PCP Internal Medicine; Visit Provider Internal Medicine
DX: E87.6 Hypokalemia (principal); N18.32 Chronic kidney disease, stage 3b
CPT/HCPCS: 36415; 80048